=== PATIENT | male | born 1965 | race Caucasian/White ===

== ENCOUNTER 2020-03-02 00:59 | Outpatient (CLI) | payer BC, SELFPAY ==
[2020-03-02 18:01] LABS: SARS-CoV-2 RNA PCR Negative
== END 2020-03-02 01:00 | disposition home or self-care (01) ==
LOC: ANHCOVIDDT 00:59
PROVIDERS: PCP Internal Medicine; Visit Provider Internal Medicine Gastroenterology
DX: Z01.812 Encounter for preprocedural laboratory examination (principal); Z20.828 Contact with and (suspected) exposure to other viral communicable diseases
CPT/HCPCS: 87635; C9803; U0003

== ENCOUNTER 2020-03-04 00:49 | Day surgery (SDC) | payer BC, SELFPAY ==
[2020-02-26 13:39] VITALS: BMI 25.1
[2020-03-04 08:06] VITALS: BP 119/83; PULSE 105; RESP 16; TEMP 36.9; O2SAT 99
[2020-03-04] MEDS: LACTATED RINGERS 1,000 ML 150 ML IV CONT (08:18)
--- NOTE | 2020-03-04 08:44 | WPDANESEPPF ---
Anes - Initial Pre Proc Eval Procedure: Operation Date: 03/04/20 09:00 Proposed Procedures p Screening Colonoscopy - Randell Aldridge MD Date/Time: 03/04/20 08:44 Surgeon: Randell Aldridge MD Pre Op Diagnosis: neoplasm screening, family hx colon CA Patient Data Age: 54 Gender: M Height: 5 ft 7 in Weight: 74.8 kg Last Vital Signs Temp 36.9 C 03/04/20 08:06 Pulse 105 H 03/04/20 08:06 Resp 16 03/04/20 08:06 BP 119/83 03/04/20 08:06 Pulse Ox 99 03/04/20 08:06 Allergies Allergy/AdvReac Type Severity Reaction Status Date / Time Sulfa (Sulfonamide Allergy Mild Rash Verified 03/04/20 08:01 Antibiotics) Home Medications Medication Instructions Recorded Confirmed Type acetaminophen 500 mg PO Q6H PRN 02/25/20 03/04/20 History indomethacin 50 mg PO DAILY 02/25/20 03/04/20 History lisinopril 10 mg PO DAILY 02/25/20 03/04/20 History simvastatin 40 mg PO DAILY 02/25/20 03/04/20 History vitamins A,C,[id number] [ICaps 1 tablet PO ONCE 02/25/20 03/04/20 History AREDS] Patient hx anesthesia problems: none Family hx anesthesia problems: none PMFSH Past Medical History Medical History Anxiety Deaf Hyperlipidemia Hypertension Tobacco abuse Social History Social History Smoking packs per day: 1 Smoking cigarettes per day: 20.0 Years smoked: 35 Smoking pack-years: 35.00 Smoking status: Current every day smoker Tobacco type: cigarettes Alcohol intake: current Drinks per week: 1 Substance use: never Substance use type: does not use Living arrangements: with family Spiritual care concerns: No Anes - Eval Final PreProcedure Day of Procedure 03/04/20 08:44 Patient weight: normal Heart: regular rate and rhythm Lungs: decreased breath sounds Airway: Mallampati scale class II Neurological: other (alert) Last oral intake: >/= 8 hours ASA classification: III Emergent: no Anesthetic plan: proceed Anesthesia type and monitoring: general GIVS and standard monitoring Informed Consent: The patient's anesthetic plan and its attendant risks and benefits were discussed with the patient/family/POA. Questions were solicited and answers provided to the satisfaction of the patient/family/POA.
--- NOTE | 2020-03-04 08:54 | WPDGICN ---
Assessment and Plan Assessment and plan (1) Family history of colon cancer in father: Code(s): Z80.0 - Family history of malignant neoplasm of digestive organs Status: Acute Assessment and Plan: Patient's father had colon cancer several aunts and uncles have had cancer and polyps as well. Plan is for surveillance colonoscopy now and at 5 year intervals in the future. Further recommendations will be given after endoscopy. (2) Family history of colonic polyps: Code(s): Z83.71 - Family history of colonic polyps Status: Acute GI Consult Note Consult date/time: 03/04/20 08:54 HPI: James Ku is a 54 year old male Seen in evaluation at the request of Dr Quinteros. patient presents for screening colonoscopy. Patient is deaf in history is obtained with the assistance of his sister. Patient states that his current weight appetite bowel movements are normal. His family history is significant father had colon cancer as did several aunts and uncles. Patient's last colonoscopy was 5 years ago. Patient denies any blood in his stools his weight appetite bowel movements are normal. Review of Systems Review of Systems: All systems reviewed & are unremarkable except as noted in HPI and below PMFSH Past Medical History Medical History Anxiety Deaf Hyperlipidemia Hypertension Tobacco abuse Social History Social History Smoking packs per day: 1 Smoking cigarettes per day: 20.0 Years smoked: 35 Smoking pack-years: 35.00 Smoking status: Current every day smoker Tobacco type: cigarettes Alcohol intake: current Drinks per week: 1 Substance use: never Substance use type: does not use Living arrangements: with family Spiritual care concerns: No Meds Home Medications and Allergies Home Medications Medication Instructions Recorded Confirmed Type acetaminophen 500 mg PO Q6H PRN 02/25/20 03/04/20 History indomethacin 50 mg PO DAILY 02/25/20 03/04/20 History lisinopril 10 mg PO DAILY 02/25/20 03/04/20 History simvastatin 40 mg PO DAILY 02/25/20 03/04/20 History vitamins A,C,[id number] [ICaps 1 tablet PO ONCE 02/25/20 03/04/20 History AREDS] Allergies Allergy/AdvReac Type Severity Reaction Status Date / Time Sulfa (Sulfonamide Allergy Mild Rash Verified 03/04/20 08:01 Antibiotics) Vital Signs Vital Signs - 24 hr 03/04/20 08:06 Temperature 98.5 F Pulse Rate 105 H Respiratory Rate 16 Blood Pressure 119/83 Pulse Oximetry 99 Exam Narrative: Exam Narrative: Physical exam reveals patient to be alert. Vital signs stable. HE EENT exam is unremarkable. Lungs are clear to auscultation and percussion. Heart is without murmur or extra sounds. Abdominal exam bowel sounds are present soft nontender with no hepatosplenomegaly. Digital external rectal exam is normal.
[2020-03-04 09:22] VITALS: BP 99/63; PULSE 89; RESP 16; O2SAT 96
[2020-03-04 09:32] VITALS: BP 104/76; PULSE 85; RESP 16; O2SAT 96
[2020-03-04 09:42] VITALS: BP 114/74; PULSE 80; RESP 16; O2SAT 96
== END 2020-03-04 09:57 | disposition home or self-care (01) ==
PROVIDERS: PCP Internal Medicine; Visit Provider Internal Medicine Gastroenterology
PROC: 0DJD8ZZ Inspection of Lower Intestinal Tract, Via Natural or Artificial Opening Endoscopic (ICD-10-PCS; CPT 45378; principal; 2020-03-04 09:00)
DX: Z12.11 Encounter for screening for malignant neoplasm of colon (principal); Z83.71 Family history of colonic polyps; Z80.0 Family history of malignant neoplasm of digestive organs; H91.90 Unspecified hearing loss, unspecified ear; E78.5 Hyperlipidemia, unspecified; I10 Essential (primary) hypertension; F17.210 Nicotine dependence, cigarettes, uncomplicated; K64.8 Other hemorrhoids; K57.30 Diverticulosis of large intestine without perforation or abscess without bleeding
CPT/HCPCS: 45378; J2704; J7120

== ENCOUNTER 2020-03-15 17:14 | Emergency (ER) | payer BC, SELFPAY ==
[2020-03-15 17:19] VITALS: BP 143/89; PULSE 114; RESP 18; TEMP 37; O2SAT 95
[2020-03-15 17:32] LABS: Basophils Absolute Auto 0.1 K/mm3 (0.0-0.1); Basophils Percent Auto 0.3 % (0.2-1.2); Eosinophils Absolute Auto 0.2 K/mm3 (0-0.3); Eosinophils Percent Auto 1.2 % (0-4.4); Hematocrit 43.6 % (42.0-52.0); Hemoglobin 14.4 g/dL (14.0-18.0); Immature Granulocyte Absolute 0.07 K/mm3 (0.00-0.031); Immature Granulocyte Percent A 0.5 % (0-0.5); Lymphocytes Absolute Auto 2.02 K/mm3 (0.9-3.2); Lymphocytes Percent Auto 14.1 % (18.3-44.2); Mean Corpuscular Hemoglobin 28.6 pg (26-34); Mean Corpuscular Volume 86.5 fl (80-100); Mean Platelet Volume 9.3 fl (7.4-10.4); Monocytes Absolute Auto 1.3 K/mm3 (0.1-0.6); Monocytes Percent Auto 8.7 % (2.6-8.5); Neutrophils Absolute Auto 10.8 K/mm3 (1.3-6.7); Neutrophils Percent Auto 75.2 % (45.5-73.1); Platelet Count Result 342 k/mm3 (150-375); Red Blood Count 5.04 M/mm3 (4.6-6.20); Red Cell Distribution Width 13.8 % (11.5-14.5); White Blood Count 14.4 K/mm3 (4.5-10.0)
[2020-03-15 17:42] LABS: INR 2.3; Prothrombin Time 25.1 Seconds (11.1-14.7)
--- NOTE | 2020-03-15 17:50 | ED.LOWEXIN ---
HPI - Extremity Injury (Lower) General Chief Complaint: Extremity Injury, Lower Stated Complaint: possible DVT Time Seen by Provider: 03/15/20 17:29 Source: patient Mode of arrival: ambulatory Limitations: language barrier (Patient is deaf, his sister is interpreting for him) History of Present Illness HPI Narrative: This is a 54-year-old male that presents the emergency department for left lower extremity swelling x3 days. Also reports mild redness to the area. Reports history of DVT. Reports recent travel. Denies fever, chest pain, or shortness of breath. Related Data Home Medications Medication Instructions Recorded Confirmed acetaminophen 500 mg PO Q6H PRN 02/25/20 03/04/20 indomethacin 50 mg PO DAILY 02/25/20 03/04/20 lisinopril 10 mg PO DAILY 02/25/20 03/04/20 simvastatin 40 mg PO DAILY 02/25/20 03/04/20 vitamins A,C,[id number] [ICaps 1 tablet PO ONCE 02/25/20 03/04/20 AREDS] Allergies Allergy/AdvReac Type Severity Reaction Status Date / Time Sulfa (Sulfonamide Allergy Mild Rash Verified 03/04/20 08:01 Antibiotics) Review of Systems Review of Systems: Narrative: CONSTITUTIONAL: Denies fever CARDIOVASCULAR: Reports edema. Denies chest pain RESPIRATORY: Denies dyspnea. All systems reviewed & are unremarkable except as noted in HPI and below PMFSH Past Medical History Medical History (Updated 03/15/20 @ 18:55 by Ruth Jacobsen PA-C) Anxiety Deaf Hyperlipidemia Hypertension Tobacco abuse Social History Social History Smoking packs per day: 1 Smoking cigarettes per day: 20.0 Years smoked: 35 Smoking pack-years: 35.00 Smoking status: Current every day smoker Tobacco type: cigarettes Alcohol intake: current Drinks per week: 1 Substance use: never Substance use type: does not use Spiritual care concerns: No Exam Narrative: Exam Narrative: GENERAL: Well-appearing, well-nourished, and in no acute distress. HEAD: Normocephalic, atraumatic. EYES: EOMI. CHEST: Clear to auscultation. No respiratory distress. No wheezes rales or rhonchi HEART: Regular rate and rhythm. No murmur heard. Normal peripheral pulses. EXTREMITIES: Normal range of motion. Mild edema and redness to the left lower extremity. Normal DP pulses. Normal sensation SKIN: Warm, dry, no rash. NEURO: No focal deficits. Alert and oriented x3. PSYCH: Normal mood and affect Course Consultations Consultation #1: I spoke with patient's primary, Dr. Quinteros to ensure follow-up. Date: 03/15/20 Time: 18:52 Vital Signs Vital signs: Vital Signs Temperature 98.6 F 03/15/20 17:19 Pulse Rate 114 H 03/15/20 17:19 Respiratory Rate 18 03/15/20 17:19 Blood Pressure 143/89 H 03/15/20 17:19 Pulse Oximetry 95 03/15/20 17:19 Temperature 98.6 F 03/15/20 17:19 Pulse Rate 101 H 03/15/20 18:46 Respiratory Rate 20 03/15/20 18:46 Blood Pressure 135/91 H 03/15/20 18:46 Pulse Oximetry 96 03/15/20 18:46 MDM - Extremity Injury (Lower) MDM Narrative Medical decision making narrative: Patient presents to the emergency department for left lower extremity pain and swelling x3 days. He is afebrile and nontoxic-appearing. Exam and history are consistent with DVT. Mildly tachycardic upon arrival, this improved without intervention. Patient's heart rate is now normal. Oxygen saturation has remained normal on room air. He denies any chest pain or shortness of breath. CBC with leukocytosis to 14.4. Metabolic panel with elevation in alk phos and ALT. Looking back at previous labs this seems to be chronic for him. Patient was here past the time we had our ultrasound technicians today. Patient was given a dose of Lovenox in the ED and is set up for an ultrasound tomorrow morning. I spoke with patient's primary, Dr. Quinteros to ensure follow-up. Patient is stable and felt appropriate further outpatient evaluation. He was given warnings to re
[2020-03-15 17:52] LABS: Alanine Aminotransferase 96 U/L (4-50); Albumin Level 3.7 g/dL (3.5-5.1); Alkaline Phosphatase 250 U/L (38-126); Anion Gap 10 mmol/L (8-16); Aspartate Amino Transferase 42 U/L (17-59); Bilirubin,Total 0.8 mg/dL (0.2-1.3); Blood Urea Nitrogen 12 mg/dL (9-20); Calcium 8.8 mg/dL (8.4-10.2); Carbon Dioxide 25 mmol/L (22-30); Chloride 101 mmol/L (98-107); Estimated CRCL calculation 76 ml/min; Estimated Glomerular Filt Rate > 60; Glucose 168 mg/dL (75-110); Sodium 136 mmol/L (137-145)
[2020-03-15 18:46] VITALS: BP 135/91; PULSE 101; RESP 20; O2SAT 96
[2020-03-15] MEDS: ENOXAPARIN 80 MG/0.8 ML SYRINGE 75 MG SUB-Q (18:46)
== END 2020-03-15 18:57 | disposition home or self-care (01) ==
PROVIDERS: Emergency Provider Family Medicine; PCP Internal Medicine
DX: M79.89 Other specified soft tissue disorders (principal); Z86.718 Personal history of other venous thrombosis and embolism; E78.5 Hyperlipidemia, unspecified; I10 Essential (primary) hypertension; F17.210 Nicotine dependence, cigarettes, uncomplicated; H91.90 Unspecified hearing loss, unspecified ear
CPT/HCPCS: 36415; 80053; 85025; 85610; 85730; 96372; 99283; J1650

== ENCOUNTER 2020-03-16 08:02 | Outpatient (CLI) | payer BC, SELFPAY ==
--- NOTE | ~2020-03-16 | US_ITS ---
EXAMINATION: US venous doppler [facility] DATE: 03/16/2020 08:54 INDICATION: Left lower limb pain and swelling TECHNIQUE: [place] scale images without and with compression and Doppler images of the left lower extrem ity veins were obtained. COMPARISON: 09/22/2018 FINDINGS: The left common femoral vein, profunda femoral vein, femoral vein, popliteal vein, peroneal trunk, posterior tibial veins, and greater saphenous vein are patent. There is an approximately 6 x 2.6 x 2 cm fluid collection situated in the medial aspect of proximal calf. IMPRESSION: 1. Patent left lower extremity veins. No evidence of deep venous thrombosis. 2. Possible seroma or hematoma of the medial calf. Recommend continued clinical follow-up with repeat ultrasound if necessary. Reviewed, dictated and finalized at location A.
== END 2020-03-16 08:03 | disposition home or self-care (01) ==
LOC: ANHIMG 08:04
PROVIDERS: PCP Internal Medicine; Visit Provider Internal Medicine
DX: M79.89 Other specified soft tissue disorders (principal)
CPT/HCPCS: 93971

== ENCOUNTER 2022-02-06 10:53 | Inpatient (IN) | payer MEDICARE, BC, SELFPAY ==
--- NOTE | ~2022-02-06 | XR_ITS ---
EXAMINATION: XR abdomen/kub 1V DATE: 02/11/2022 13:13 INDICATION: Abdominal pain TECHNIQUE: A supine view of the abdomen on 2 radiographs was obtained. COMPARISON: CT dated 02/07/2022 FINDINGS: Small amount of gas and stool scattered throughout the colon. No dilated gas-filled loops of bowel to suggest obstruction. Phleboliths in the pelvis. No evident urolithiasis. Mild lumbar and lower thora cic spondylosis. IMPRESSION: 1. Normal bowel gas pattern. Reviewed, dictated and finalized at location A.
--- NOTE | ~2022-02-06 | CT_ITS ---
EXAMINATION: CT abdomen pelvis wo con DATE: 02/07/2022 13:55 INDICATION: Colitis. Left thigh abscess. TECHNIQUE: Computed tomography (CT) of the abdomen and pelvis was performed without intravenous contr ast. Automated exposure control and iterative reconstruction technique were employed. The dose-length product was 487.16 mGy-cm. COMPARISON: CT abdomen and pelvis 01/26/2017 FINDINGS: The visualized portions of the lung bases demonstrate mild atelectasis. No pleural effusion . The heart size is normal. No pericardial effusion. The liver, gallbladder, spleen, pancreas, and ad renal glands are normal. There is cortical thinning of the kidneys. There is a 3.1 cm fusiform infrar enal aortic aneurysm. The prostate is mildly enlarged. There is diverticulosis of the colon without e vidence of diverticulitis. There are no dilated loops of bowel. The appendix is normal. There is a le ft inguinal hernia containing fat. There are no pathologically enlarged lymph nodes. There is no free intraperitoneal fluid. There is mild lumbar spondylosis. IMPRESSION: 1. No specific evidence of colitis. 2. 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 Reviewed, dictated and finalized at location A.
--- NOTE | ~2022-02-06 | US_ITS ---
EXAMINATION: US percutaneous drain w cath DATE: 02/08/2022 14:01 INDICATION: Left thigh intramuscular abscess TECHNIQUE: The procedure including the risks and benefits was discussed with the patient and patient' s . Risks discussed included bleeding, infection and allergic reaction. Oral and written consent were obtained. The patient was confirmed to be receiving appropriate antibiotic coverage. The skin o verlying the anterolateral left thigh was prepped and draped in usual sterile fashion. Anesthetic wa s administered with 1% lidocaine subcutaneously. An 8.5 Fr catheter was inserted into the abscess cav ity by trocar technique utilizing continuous ultrasound guidance. The metal stiffener and trocar need le were removed, and the pigtail tip was locked. Fluid was aspirated and sent for stain and culture. The catheter was stitched to the skin with suture. Antibiotic ointment and a sterile dressing were ap plied. The catheter was then attached to gravity drainage. There were no immediate complications. FINDINGS: 2.0 x 1.0 cm anechoic intramuscular fluid collection at the anterolateral left thigh likely within the vastus lateralis. Subsequent images demonstrate the catheter position with formed loop wi thin the abscess cavity. Final images demonstrate decompression of the abscess cavity surrounding the drainage catheter. 2 mL of opaque reddish fluid was aspirated and sent to the lab for Gram stain and cultures. IMPRESSION: 1. Successful ultrasound-guided anterior left thigh abscess drainage catheter placement with drainage of the 2 x 1 cm abscess yielding 2 mL of fluid which was sent for Gram stain and cultures. Reviewed, dictated and finalized at location A. IMPRESSION: 1. Successful ultrasound-guided anterior left thigh abscess drainage catheter p lacement with drainage of the 2 x 1 cm abscess yielding 2 mL of fluid which was sent for Gram stain and cultures.
--- NOTE | ~2022-02-06 | US_ITS ---
EXAMINATION: US renal BI DATE: 02/10/2022 10:05 INDICATION: Acute renal failure TECHNIQUE: Multiple grayscale and Doppler ultrasound images of the kidneys were obtained. COMPARISON: None. FINDINGS: The right kidney measures 10.3 x 5.9 x 6.5 cm. The left kidney measures 9.7 x 5.6 x 6.3 cm. The kidneys demonstrate normal parenchymal echogenicity. There is no hydronephrosis. The bladder is normal. IMPRESSION: 1. Normal kidneys without hydronephrosis. Reviewed, dictated and finalized at location B.
--- NOTE | ~2022-02-06 | CT_ITS ---
CT OF RIGHT HAND EXAMINATION: CT femur LT w con DATE: 02/06/2022 14:44 INDICATION: TECHNIQUE: Computed tomography (CT) of the hip was performed without intravenous contrast. Automated exposure control and iterative reconstruction technique were employed. The dose-length product was 47 5.51 mGy-cm. COMPARISON: None FINDINGS: Limitations: None Bones: Normal mineralization. No acute fracture or dislocation. Posttraumatic/postsurgical change in the proximal tibia likely secondary to remote tibial plateau fracture. Degenerative change in the lef t knee. Soft Tissues:Diverticulosis. Moderate length segment of soft tissue density distal sigmoid wall thick ening, which can be seen in infectious, inflammatory, or ischemic etiologies. Rectal wall submucosal fat as can be seen with chronic IBD, obesity, chemotherapy treatment, and celiac disease. Fat-contain ing left inguinal hernia. Fluid: 1.6 x 2.2 x 2.9 cm low-density collection surrounding irregular rim enhancement within the bel ly of the vastus intermedius muscle at the level of the mid left femur. IMPRESSION: 2.9 cm intramuscular abscess in the mid left vastus intermedius muscle. Acute distal sigmoid colitis overlying likely chronic changes of IBD. Reviewed, dictated and finalized at location K. IMPRESSION: 2.9 cm intramuscular abscess in the mid left vastus intermedius muscle. Acute d istal sigmoid colitis overlying likely chronic changes of IBD.
--- NOTE | ~2022-02-06 | US_ITS ---
EXAMINATION: US venous doppler [facility] DATE: 02/06/2022 12:16 INDICATION: Left lower limb pain and swelling. TECHNIQUE: Grayscale ultrasound images without and with compression and Doppler ultrasound images of the left lower extremity veins were obtained. COMPARISON: Ultrasound 03/16/2020 FINDINGS: The visualized portions of left common femoral vein, profunda (deep) femoral vein, femoral vein, popl iteal vein, peroneal veins, posterior tibial veins, and greater saphenous vein outflow are patent. IMPRESSION: 1. No deep venous thrombosis. Reviewed, dictated and finalized at location A.
[2022-02-06 11:11] VITALS: BP 142/97; PULSE 107; RESP 16; TEMP 36.7; O2SAT 100
--- NOTE | 2022-02-06 12:14 | ED.EXTPRO ---
HPI - Extremity Problem General Chief complaint: Extremity Problem,Nontraumatic <KRYSTLE Boyle Last Filed: 02/06/22 18:47> Stated complaint: Left leg surgery, staph infection, DVT. Left leg knot, hx of DVT <KRYSTLE Boyle Last Filed: 02/06/22 18:47> Time Seen by Provider: 02/06/22 11:17 <KRYSTLE Boyle Last Filed: 02/06/22 18:47> Source: patient and family <KRYSTLE Boyle Last Filed: 02/06/22 18:47> Mode of arrival: ambulatory <KRYSTLE Boyle Last Filed: 02/06/22 18:47> Limitations: language barrier <KRYSTLE Boyle Last Filed: 02/06/22 18:47> History of Present Illness HPI Narrative: Patient is a 56-year-old male who presents the ED with report of left thigh pain and swelling. Patient is deaf. Family member at bedside assisted in providing information. [employer] peanut grader was offered however sister was comfortable interpreting. Over the past 2 days, patient has developed an area of firmness, pain, swelling to left anterior thigh. Decreased flexion range of motion of left knee due to pain. 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 He currently takes aspirin 81 mg daily, no other blood thinners. Denies any recent injury. Denies chest pain or shortness of breath. Denies fevers. <KRYSTLE Boyle Last Filed: 02/06/22 18:47> Related Data Home medications: Home Medications Medication Instructions Recorded Confirmed acetaminophen 500 mg tablet 500 mg PO Q6H PRN Headache 02/25/20 03/04/20 indomethacin 50 mg capsule 50 mg PO DAILY 02/25/20 03/04/20 lisinopril 10 mg tablet 10 mg PO DAILY 02/25/20 03/04/20 simvastatin 40 mg tablet 40 mg PO DAILY 02/25/20 03/04/20 vit A 7,160 unit-C 113 mg-E 100 1 tablet PO ONCE 02/25/20 03/04/20 [id number] tablet,delayed rel. (ICaps AREDS) <Virgen Patrick PA-C - Last Filed: 02/06/22 18:47> Allergies/Adverse reactions: Allergies Allergy/AdvReac Type Severity Reaction Status Date / Time Sulfa (Sulfonamide Allergy Mild Rash Verified 03/04/20 08:01 Antibiotics) <Virgen Patrick PA-C - Last Filed: 02/06/22 18:47> Review of Systems Review of Systems: CONSTITUTIONAL: Denies fever. CARDIOVASCULAR: Denies chest pain. RESPIRATORY: Denies dyspnea. GASTROINTESTINAL: Denies abdominal pain, nausea, vomiting. SKIN: Reports area of firmness, swelling to left anterior thigh. MUSCULOSKELETAL: Reports pain to left anterior thigh. <Virgen Patrick PA-C - Last Filed: 02/06/22 18:47> All systems reviewed & are unremarkable except as noted in HPI and below <Virgen Patrick PA-C - Last Filed: 02/06/22 18:47> [facility] Past Medical History Medical History: Medical History (Updated 02/06/22 @ 15:26 by Virgen Patrick PA-C) Anxiety Deaf History of deep venous thrombosis (DVT) of distal vein of left lower extremity Hyperlipidemia Hypertension Tobacco abuse <Virgen Patrick PA-C - Last Filed: 02/06/22 18:47> Surgical History Surgical History: Surgical History (Updated 02/06/22 @ 18:28 by Virgen Patrick PA-C) History of orthopedic surgery tibial plateau fx 2017 with subsequent removal of hardware <Virgen Patrick PA-C - Last Filed: 02/06/22 18:47> Social History Social History: Social History Smoking packs per day: 1 Smoking cigarettes per day: 20.0 Years smoked: 35 Smoking pack-years: 35.00 Smoking status: Current every day smoker Tobacco type: cigarettes Alcohol intake: current Drinks per week: 1 Substance use: never Substance use type: does not use Spiritual care concerns: No <Virgen Patrick PA-C - Last Filed:
[2022-02-06 12:29] LABS: Basophils Absolute Auto 0.1 K/mm3 (0.0-0.1); Basophils Percent Auto 0.4 % (0.2-1.2); Eosinophils Absolute Auto 0.1 K/mm3 (0-0.3); Hematocrit 48.6 % (42.0-52.0); Hemoglobin 15.7 g/dL (14.0-18.0); Immature Granulocyte Absolute 0.05 K/mm3 (0.00-0.031); Immature Granulocyte Percent A 0.4 % (0-0.5); Lymphocytes Absolute Auto 2.25 K/mm3 (0.9-3.2); Lymphocytes Percent Auto 19.9 % (18.3-44.2); Mean Corpuscular HGB Conc 32.3 g/dl (32-36); Mean Corpuscular Hemoglobin 28.8 pg (26-34); Mean Corpuscular Volume 89.2 fl (80-100); Mean Platelet Volume 9.2 fl (7.4-10.4); Monocytes Absolute Auto 1.2 K/mm3 (0.1-0.6); Monocytes Percent Auto 10.3 % (2.6-8.5); Neutrophils Absolute Auto 7.7 K/mm3 (1.3-6.7); Platelet Count Result 284 k/mm3 (150-375); Red Blood Count 5.45 M/mm3 (4.6-6.20); Red Cell Distribution Width 13.4 % (11.5-14.5); White Blood Count 11.3 K/mm3 (4.5-10.0)
[2022-02-06 12:42] LABS: Alanine Aminotransferase 22 U/L (6-50); Albumin Level 4.1 g/dL (3.5-5.1); Alkaline Phosphatase 103 U/L (38-126); Anion Gap 7 mmol/L (8-16); Aspartate Amino Transferase 22 U/L (17-59); Bilirubin,Total 0.4 mg/dL (0.2-1.3); Blood Urea Nitrogen 9 mg/dL (9-20); Calcium 9.1 mg/dL (8.4-10.2); Carbon Dioxide 30 mmol/L (22-30); Chloride 102 mmol/L (98-107); Estimated CRCL calculation 74 ml/min; Estimated Glomerular Filt Rate > 60; Glucose 111 mg/dL (65-110); Potassium 4.1 mmol/L (3.4-5.0); Sodium 139 mmol/L (137-145)
[2022-02-06 12:44] LABS: Prothrombin Time 13.2 Seconds (11.1-14.7)
[2022-02-06 12:45] LABS: Partial Thromboplastin Time 30.7 SECONDS (22.3-36.8)
[2022-02-06 16:11] VITALS: BP 138/72; PULSE 88; RESP 20; O2SAT 99
[2022-02-06 16:27] LABS: Lactic Acid Reflex 1.1 mmol/L (0.7-2.0)
--- NOTE | 2022-02-06 18:25 | PM.IMHP ---
H&P: HPI History of Present Illness Date/Time: 02/06/22 18:25 Chief Complaint: Left upper leg pain. 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 He communicates using ASL and his sister at bedside helped translate the following at the request of patient. He fractured his left leg in 2007 and it sounds as though he had recurrent infections at the side of external fixator insertion and of the hardware which was eventually removed in 2017. It is my understanding that he has had MRSA several infections either in the joint or in the musculature since that time. Last Monday he felt a knot under the skin of the left upper thigh and about 3 days ago the area increased in size and became painful. He has only mild discomfort in the left thigh with rest however he has quite a bit of pain with bearing weight though he has difficulties describing the pain. He has been taking acetaminophen at home with some help. He has also had some chills though no sweats or fever. Appetite is been okay knee denies nausea and vomiting. No paresthesias or numbness of the lower extremity. Review of Systems Review of Systems: Twelve systems were reviewed. No fever, chills, or sweats. No recent cold or flu symptoms. He denies chest pain shortness breast. No abdominal pain. No diarrhea or constipation. Except as documented, all other systems were reviewed and are negative. 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 History of repair of congenital anomaly of heart Family History Family History (Updated 02/06/22 @ 20:37 by Pia Diaz PA-C) Other Family history non-contributory Social History Social History (Updated 02/06/22 @ 20:37 by Pia Diaz PA-C) Social History: Surrogate medical decision maker: Tania Sousa, sister. Code status: Full code. Smoking packs per day: 1 Smoking cigarettes per day: 20.0 Years smoked: 35 Smoking pack-years: 35.00 Smoking status: Current every day smoker Tobacco type: cigarettes Alcohol intake: current Drinks per week: 1 Substance use: current Substance use type: marijuana Last use: 02/05/22 Additional living arrangements comments: The patient lives with his brother in [place]. Additional occupation/education comments: On disability. Spiritual care concerns: No Meds Home Medications and Allergies Home Medications Medication Instructions Recorded Confirmed Type acetaminophen 500 mg tablet 500 mg PO Q6H PRN Headache 02/25/20 03/04/20 History indomethacin 50 mg capsule 50 mg PO DAILY 02/25/20 03/04/20 History lisinopril 10 mg tablet 10 mg PO DAILY 02/25/20 03/04/20 History simvastatin 40 mg tablet 40 mg PO DAILY 02/25/20 03/04/20 History vit A 7,160 unit-C 113 mg-E 100 1 tablet PO ONCE 02/25/20 03/04/20 History [id number] tablet,delayed rel. (ICaps AREDS) Allergies Allergy/AdvReac Type Severity Reaction Status Date / Time Sulfa (Sulfonamide Allergy Mild Rash Verified 02/06/22 20:42 Antibiotics) Vital Signs Vital Signs - 24 hr 02/06/22 11:11 02/06/22 16:11 Temperature 98.1 F Pulse Rate 107 H 88 Respiratory Rate 16 20 Blood Pressure 142/97 H 138/72 Pulse Oximetry 100 99 Oxygen Delivery Room Air Exam N
[2022-02-06] MEDS: SODIUM CHLORIDE 0.9% IV 250 ML 100 ML (18:28)
[2022-02-06 18:51] VITALS: BP 132/68; PULSE 78; RESP 18; O2SAT 99
--- NOTE | 2022-02-06 19:00 | ADMGEN ---
This patient, James Ku, was admitted to 2 Medical Room 242-01. Patient/family oriented to hospital policies and general routines including ID bracelet, bed and alarms, visiting hours, pain management, procedures, bathroom and other care routines, personal items, smoking policy, room service/diet, and visiting hours. Information on how to activate the Rapid Response Team has been discussed. Patient/Family are encouraged to report perceived risks to care and to ask questions if they do not understand what they are told or what they should do.
[2022-02-06 19:15] VITALS: BP 129/78; PULSE 86; RESP 20; TEMP 36.8; O2SAT 98; BMI 27.5
[2022-02-06] MEDS: NICOTINE (*PBKC) 14 MG PATCH 1 PATCH TRANSDERM (21:52)
[2022-02-06] MEDS: ACETAMINOPHEN 500 MG TABLET PO (23:46)
[2022-02-07 03:36] VITALS: BP 127/85; PULSE 71; RESP 17; TEMP 36.4; O2SAT 96
[2022-02-07 05:06] LABS: Basophils Percent Auto 0.4 % (0.2-1.2); Eosinophils Absolute Auto 0.2 K/mm3 (0-0.3); Eosinophils Percent Auto 2.2 % (0-4.4); Hematocrit 44.5 % (42.0-52.0); Hemoglobin 14.9 g/dL (14.0-18.0); Immature Granulocyte Absolute 0.03 K/mm3 (0.00-0.031); Immature Granulocyte Percent A 0.3 % (0-0.5); Lymphocytes Absolute Auto 3.07 K/mm3 (0.9-3.2); Lymphocytes Percent Auto 28.7 % (18.3-44.2); Mean Corpuscular HGB Conc 33.5 g/dl (32-36); Mean Corpuscular Hemoglobin 29.2 pg (26-34); Mean Corpuscular Volume 87.3 fl (80-100); Mean Platelet Volume 9.3 fl (7.4-10.4); Monocytes Absolute Auto 1.1 K/mm3 (0.1-0.6); Monocytes Percent Auto 10.1 % (2.6-8.5); Neutrophils Absolute Auto 6.2 K/mm3 (1.3-6.7); Neutrophils Percent Auto 58.3 % (45.5-73.1); Platelet Count Result 293 k/mm3 (150-375); Red Cell Distribution Width 13.2 % (11.5-14.5); White Blood Count 10.7 K/mm3 (4.5-10.0)
[2022-02-07 05:20] LABS: Anion Gap 6 mmol/L (8-16); Blood Urea Nitrogen 10 mg/dL (9-20); Calcium 8.9 mg/dL (8.4-10.2); Carbon Dioxide 27 mmol/L (22-30); Chloride 103 mmol/L (98-107); Estimated CRCL calculation 74 ml/min; Estimated Glomerular Filt Rate > 60; Glucose 104 mg/dL (65-110); Potassium 3.9 mmol/L (3.4-5.0); Sodium 136 mmol/L (137-145)
[2022-02-07] MEDS: ACETAMINOPHEN 500 MG TABLET PO (05:32)
--- NOTE | 2022-02-07 07:41 | PM.CNOR ---
Assessment and Plan Assessment and plan (1) Abscess of muscle of thigh: Code(s): M60.059 - Infective myositis, unspecified thigh Status: Acute Plan 56-year-old male with what appears to be a thigh abscess. In looking at the CT scan, this is directly in line with the tract of the prior Shantz pin placed at that level. There does not appear to be any type of a bony night S in that area. It does not appear to communicate with the surface of the femur either. Biopsy/aspirate planned for today. Currently on empiric antibiotics. I did talk to the patient with his sister's assistance about the possibility of surgical debridement. I will also ask General surgery to have a look at him because of the CT reading regarding the sigmoid colon however his belly exam today is benign so I do not think that that is likely the source. Thank you for the consultation. History of Present Illness HPI Consult date: 02/07/22 Chief complaint: L Thigh Intramuscular Abscess Narrative: This document created with [id number] technology and is subject to senior regulatory affairs specialist irregularities. 56-year-old male who is admitted with a left thigh abscess. His history is significant for having had a severe tibia fracture many years ago. This was initially treated with a spanning external fixator before definitive fixation of the proximal tibia was carried out. He ended up with infected tibial hardware which was removed in 2016. In 2019 he developed some thigh swelling which was treated with oral antibiotics and then the pain went away. Most recently he developed pain and swelling in his left thigh anterolaterally. It is around the area where he had had a previous external fixator pin. Denies any other extremity pain. Neck or back pain. No cough. No fever. No bowel or bladder changes. No recent lower abdominal pain. Did have some upper GI irritability a couple of weeks ago that was treated successfully with omeprazole. Patient is deaf. He was interviewed and examined with the assistance of his sister who uses ASL. Does smoke cigarettes and marijuana. Does not use drugs. Review of Systems Constitutional: Constitutional: Reports no additional constitutional complaints, Denies excessive sweating and Denies fatigue Eyes: Eyes: Reports no additional eye complaints ENT: Reports system reviewed and no additional complaints, except as documented Cardiovascular: Cardiovascular: Denies chest pain at rest and Denies dyspnea Respiratory: Respiratory: Reports no additional respiratory complaints and Denies dyspnea Gastrointestinal: Gastrointestinal: Reports no additional gastrointestinal complaints Musculoskeletal: Musculoskeletal: Reports as per HPI Integumentary/Breasts: Skin/Breast: Reports system reviewed and no additional complaints, except as docu Neurologic: Reports as per HPI Endocrine: Endocrine: Denies excessive sweating and Denies fatigue Hematologic/Lymphatic: Hematologic/Lymphatic: Denies easy bleeding and Denies easy bruising PMFSH Past Medical History Medical History Anxiety 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 History of repair of congenital anomaly of heart Family History Family History Other Family history non-contributory Social History Social History Social History: Surrogate medical decision maker: Tania Sousa, sister. Code status: Full code. Smoking packs per day: 1 Smoking cigarettes per day: 20.0 Years smoked:
[2022-02-07] MEDS: LORATADINE 10 MG TABLET PO (09:06)
[2022-02-07] MEDS: lisinopriL 10 MG TABLET PO (09:07)
[2022-02-07] MEDS: IBUPROFEN 600 MG TABLET PO (10:57)
--- NOTE | 2022-02-07 11:40 | PM.CNGS ---
Assessment and Plan Assessment and plan (1) Abscess of muscle of thigh: Code(s): M60.059 - Infective myositis, unspecified thigh Status: Acute Assessment and Plan: cont IV abx, mgmt per ortho (2) Colitis: Code(s): K52.9 - Noninfective gastroenteritis and colitis, unspecified Status: Acute Assessment and Plan: exam benign, will get CT for further eval History of Present Illness Consult details Consult date: 02/07/22 Reason for consult: other (colitis) Requesting physician: Demetri Tolentino MD Narrative: The patient is a 56-year-old male presenting with a left anterior thigh intramuscular abscess. Of note, the patient previously had a fracture in that area requiring orthopedic procedure. Per chart, the patient had staph infection requiring removal of hardware in the same area. Dr. Tolentino is seeing the patient for that issue. A CT scan of the area showed the intramuscular abscess, but incidentally also showed possible sigmoid colitis. The patient denies any abdominal pain at this time and is tolerating a diet. The patient is deaf so communication is somewhat difficult, but patient does deny any abdominal pain or changes in bowel habits. 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 History of repair of congenital anomaly of heart Family History Family History Other Family history non-contributory Social History Social History Social History: Surrogate medical decision maker: Tania Sousa, sister. Code status: Full code. Smoking packs per day: 1 Smoking cigarettes per day: 20.0 Years smoked: 35 Smoking pack-years: 35.00 Smoking status: Current every day smoker Tobacco type: cigarettes Alcohol intake: current Drinks per week: 1 Substance use: current Substance use type: marijuana Last use: 02/05/22 Additional living arrangements comments: The patient lives with his brother in [place]. Additional occupation/education comments: On disability. Spiritual care concerns: No Meds Home Medications and Allergies Home Medications Medication Instructions Recorded Confirmed Type acetaminophen 500 mg tablet 500 mg PO Q6H PRN Headache 02/25/20 02/06/22 History lisinopril 10 mg tablet 10 mg PO DAILY 02/25/20 02/06/22 History simvastatin 40 mg tablet 40 mg PO HS 02/25/20 02/06/22 History aspirin 81 mg tablet 81 mg PO DAILY 02/06/22 02/06/22 History cetirizine 10 mg capsule (Zyrtec) 10 mg PO DAILY 02/06/22 02/06/22 History vitamin A-vitamin C-vit E-min 1 tablet PO DAILY 02/06/22 02/06/22 History tablet Allergies Allergy/AdvReac Type Severity Reaction Status Date / Time Sulfa (Sulfonamide Allergy Mild Rash Verified 02/06/22 20:42 Antibiotics) Vital Signs Vital Signs - 24 hr 02/06/22 16:11 02/06/22 18:51 02/06/22 19:15 Temperature 36.8 C Pulse Rate 88 78 86 Respiratory Rate 20 18 20 Blood Pressure 138/72 132/68 129/78 Pulse Oximetry 99 99 98 Oxygen Delivery 02/06/22 19:30 02/07/22 03:36 Temperature 36.4 C L Pulse Rate 71 Respiratory Rate 17 Blood Pressure 127/85 Pulse Oximetry 96 Oxygen Delivery Room Air Exam Const: General: cooperative, comfortable and no acute distress HENMT: Head: normal to inspection, normocephalic and atraumatic Eyes: General: appearance normal, both eyes and all rela
--- NOTE | 2022-02-07 13:43 | PM.IMPN ---
Progress Note: A&P Assessment and Plan (1) Abscess of muscle of thigh: Code(s): M60.059 - Infective myositis, unspecified thigh Status: Acute Assessment and Plan: The patient has a history of MRSA infection in the same leg despite having the hardware removed. started on empiric vancomycin and zosyn for broad-spectrum coverage 02/06/22, Adjust antibiotics per cultures. blood cultures pending will obtain wound cultures after IR drain inserted. IR consulted for drain insertion tomorrow. Dr. Tolentino , orthopedics, consulted and appreciate recommendation- does not appear to have bony involvement. (2) Colitis: Code(s): K52.9 - Noninfective gastroenteritis and colitis, unspecified Status: Acute Assessment and Plan: Incidental finding of acute sigmoid diverticulitis overlying chronic changes of possible IBD on admission CT. Patient denies history of inflammatory bowel disease and no complaints of abdominal pain at this time. last colonoscopy 03/04/[address] Aldridge with internal hemorrhoids and diverticulosis without perforation or abscess noted. General surgery has been consulted and appreciate recommendations. Monitor diet tolerance he will need repeat colonoscopy, which can likely be done outpatient as he is asymptomatic (3) Hyperlipidemia: Qualifiers: Hyperlipidemia type: unspecified Qualified Code(s): E78.5 - Hyperlipidemia, unspecified Code(s): E78.5 - Hyperlipidemia, unspecified Status: Chronic Assessment and Plan: Continue statin, LFTs within normal limits. (4) Hypertension: Code(s): I10 - Essential (primary) hypertension Status: Acute Assessment and Plan: Blood pressures were reviewed and they are stable. Continue antihypertensives and monitor. (5) Tobacco abuse: Code(s): Z72.0 - Tobacco use Status: Chronic Assessment and Plan: Smoking cessation is encouraged. He declines the need for a nicotine patch but asks permission to use nicotine gum. Plan code status: full code Disposition: Return home when medically stable Time Spent With Patient Time with patient: 15 - 25 minutes Subjective Date/time seen: 02/07/22 13:43 Interval history: Pleasant 56-year-old male smoker with congenital rubella syndrome with resultant deafness and heart defect (?hole in heart repaired as an ), hypertension, hyperlipidemia, lichen planus, depression, and anxiety who presented to the emergency department from home for evaluation of left upper leg pain. Patient is lying in bed with sister at bedside who is translating with ASL. She reports patient is complaining of headache and is hungry. He thinks the headache is related to lack of caffeine is usually drinks soda every morning, her sister. No fever, chills, rigors, shortness of breath, chest pain, paresthesia. He has pain to his left upper leg with palpation. No abdominal pain, nausea, vomiting, diarrhea, constipation. The patient reportedly did have some pain approximately 1 week ago however he took medications for GERD and his symptoms resolved. He had a colonoscopy approximately 1 year ago without abnormality. Review of Systems Review of Systems: All systems reviewed & are unremarkable except as noted in HPI and below Exam Narrative: General: Well-developed, nontoxic-appearing male. HEENT: Normocephalic. Atraumatic. PERRL, EOMI. Sclera anicteric. Oral mucosa moist. Deafness to both ears Neck: Supple. no JVD. Respiratory: Lungs are clear to auscultation bilaterally. Respirations regular and nonlabored. Cardiovascular: Regular rate and rhythm with S1-S2. No murmur gallop or rub Gastrointestinal: Abdomen is soft, and nondistended with positive bowel sounds. nontender to palpation all 4 quadrants. Skin: Warm and dry. Normal for ethnicity. Fair turgor Extremities: There is swelling the left anterior thigh with an area of fir
[2022-02-07 14:08] VITALS: BP 128/85; PULSE 79; RESP 18; TEMP 36.5; O2SAT 97
[2022-02-07 20:25] VITALS: BP 127/86; PULSE 86; RESP 16; TEMP 37.1; O2SAT 98
[2022-02-07] MEDS: ACETAMINOPHEN 500 MG TABLET 1000 MG PO (21:08)
[2022-02-07] MEDS: SIMVASTATIN 20 MG TABLET 40 MG PO (21:08)
[2022-02-08 05:17] VITALS: BP 133/74; PULSE 74; RESP 20; TEMP 36.5; O2SAT 95
[2022-02-08 05:25] LABS: Basophils Absolute Auto 0.1 K/mm3 (0.0-0.1); Basophils Percent Auto 0.7 % (0.2-1.2); Eosinophils Absolute Auto 0.3 K/mm3 (0-0.3); Hematocrit 46.4 % (42.0-52.0); Hemoglobin 15.2 g/dL (14.0-18.0); Immature Granulocyte Absolute 0.04 K/mm3 (0.00-0.031); Immature Granulocyte Percent A 0.5 % (0-0.5); Lymphocytes Absolute Auto 2.41 K/mm3 (0.9-3.2); Lymphocytes Percent Auto 28.3 % (18.3-44.2); Mean Corpuscular HGB Conc 32.8 g/dl (32-36); Mean Corpuscular Hemoglobin 29.2 pg (26-34); Mean Corpuscular Volume 89.1 fl (80-100); Monocytes Absolute Auto 0.9 K/mm3 (0.1-0.6); Monocytes Percent Auto 10.3 % (2.6-8.5); Neutrophils Absolute Auto 4.8 K/mm3 (1.3-6.7); Neutrophils Percent Auto 56.2 % (45.5-73.1); Platelet Count Result 307 k/mm3 (150-375); Red Blood Count 5.21 M/mm3 (4.6-6.20); Red Cell Distribution Width 13.2 % (11.5-14.5); White Blood Count 8.5 K/mm3 (4.5-10.0)
[2022-02-08 05:42] LABS: Alanine Aminotransferase 29 U/L (6-50); Albumin Level 3.6 g/dL (3.5-5.1); Alkaline Phosphatase 99 U/L (38-126); Anion Gap 8 mmol/L (8-16); Aspartate Amino Transferase 31 U/L (17-59); Bilirubin,Total 0.5 mg/dL (0.2-1.3); Blood Urea Nitrogen 9 mg/dL (9-20); Calcium 8.7 mg/dL (8.4-10.2); Carbon Dioxide 26 mmol/L (22-30); Chloride 104 mmol/L (98-107); Estimated CRCL calculation 74 ml/min; Estimated Glomerular Filt Rate > 60; Glucose 98 mg/dL (65-110); Potassium 4.1 mmol/L (3.4-5.0); Sodium 138 mmol/L (137-145)
[2022-02-08 06:02] LABS: Vancomycin Trough 14.2 ug/mL (10.0-20.0)
--- NOTE | 2022-02-08 07:02 | PM.IMPN ---
Progress Note: A&P Assessment and Plan (1) Abscess of muscle of thigh: Code(s): M60.059 - Infective myositis, unspecified thigh Status: Acute Assessment and Plan: The patient has a history of MRSA infection in the same leg despite having the hardware removed. Antibiotic day 2- continue empiric vancomycin and zosyn for broad-spectrum coverage (started evening 02/06/22) Adjust antibiotics per cultures. will obtain wound cultures after IR drain inserted. blood cultures with gram positive cocci in 2 of 2 bottles. Repeat blood cultures tomorrow am for antimicrobial clearing. 02/08/22 IR drain insertion today. 02/08/22 Vanc trough 14. Pharmacy to dose/monitor antibiotics. Monitor renal function on Vanc/Zosyn closely. Dr. Tolentino, orthopedics, consulted and appreciate recommendation- does not appear to have bony involvement. He may need 14 days of IV antibiotics depending on culture results. (2) Bacteremia due to Gram-positive bacteria: Code(s): R78.81 - Bacteremia Status: Acute Assessment and Plan: 02/06/22 Blood cultures with gram positive cocci in clusters in both sets. Continue Vancomycin and adjust antibiotics per cultures. (3) Colitis: Code(s): K52.9 - Noninfective gastroenteritis and colitis, unspecified Status: Resolved Assessment and Plan: Incidental finding of acute sigmoid diverticulitis overlying chronic changes of possible IBD on admission CT. Patient denies history of inflammatory bowel disease and no complaints of abdominal pain at this time. last colonoscopy 03/04/[address] Aldridge with internal hemorrhoids and diverticulosis without perforation or abscess noted. General surgery has been consulted and appreciate recommendations. 02/07/22 CT abd/pelvis without evidence of colitis. Tolerating diet. (4) Hyperlipidemia: Qualifiers: Hyperlipidemia type: unspecified Qualified Code(s): E78.5 - Hyperlipidemia, unspecified Code(s): E78.5 - Hyperlipidemia, unspecified Status: Chronic Assessment and Plan: Continue statin (5) Hypertension: Code(s): I10 - Essential (primary) hypertension Status: Acute Assessment and Plan: Blood pressures stable. Continue lisinopril. (6) Tobacco abuse: Code(s): Z72.0 - Tobacco use Status: Chronic Assessment and Plan: Smoking cessation is encouraged. He declines the need for a nicotine patch but asks permission to use nicotine gum. Plan code status: full code Disposition: Return home, lives with brother, possible home health needs if IV abx and dc with drain. Diet: NPO for IR procedure. Resume heart healthy diet after procedure. 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 No new complaints. His left leg is somewhat painful, but unchanged from yesterday. Blood cultures are growing gram positive cocci in both sets. He is awaiting IR abscess drain. Review of Systems Review of Systems: All systems reviewed & are unremarkable except as noted in HPI and below Exam Narrative: General: No acute distress, nontoxic-appearing male. HEENT: Normocephalic. Pupils equal and round. Sclera anicteric. Oral mucosa moist. Deafness to both ears Neck: no JVD. Respiratory: Lungs are clear to auscultation bilaterally. Respirations regular and nonlabored. Cardiovascular: Regular rate and rhythm with S1-S2. No murmur gallop or rub Gastrointestinal: Abdomen soft, nontender and nondistended with positive bowel sounds all 4 quadrants. Skin: Warm and dry. Norm
[2022-02-08] MEDS: ASCORBIC ACID 500 MG TABLET PO (08:11)
[2022-02-08] MEDS: lisinopriL 10 MG TABLET PO (08:11)
[2022-02-08] MEDS: LORATADINE 10 MG TABLET PO (08:11)
[2022-02-08] MEDS: IBUPROFEN 600 MG TABLET PO ×2 (12:01→20:09)
[2022-02-08 13:56] VITALS: BP 135/89; PULSE 88; RESP 16; TEMP 36.6; O2SAT 96
--- NOTE | 2022-02-08 15:13 | PM.PNGS ---
Progress Note: A&P Assessment and Plan (1) Colitis: Code(s): K52.9 - Noninfective gastroenteritis and colitis, unspecified Status: Resolved Assessment and Plan: repeat CT c no colitis, exam cont to be benign, maddy diet, no acute surgical issues, will s/o, call c ?s, issues (2) Abscess of muscle of thigh: Code(s): M60.059 - Infective myositis, unspecified thigh Status: Acute Assessment and Plan: perc drain today, cont abx Subjective Subjective Date/Time Seen: 02/08/22 15:13 no abd pain, maddy diet, reports L thigh pain unchanged Review of Systems Review of Systems: All systems reviewed & are unremarkable except as noted in HPI and below Exam Const: General: cooperative, comfortable and no acute distress Resp: Auscultation: clear to auscultation bilaterally Cardio: Rate: regular rate Rhythm: regular rhythm GI: Inspection: normal to inspection and non-distended GI Palp: No abdominal tenderness, Yes Soft to palpation, No Tenderness to palpation present (GI), No Guarding due to palpation present (GI) and No Rigid due to palpation Objective Data Vital Signs Vital Signs: Vital Signs - 24 hr 02/07/22 20:25 02/08/22 05:17 02/08/22 13:56 Temperature 37.1 C 36.5 C 36.6 C Pulse Rate 86 74 88 Respiratory Rate 16 20 16 Blood Pressure 127/86 133/74 135/89 Pulse Oximetry 98 95 96 Intake/Output Intake/Output: Intake & Output 02/05/22 02/06/22 02/07/22 02/08/22 23:59 23:59 23:59 23:59 Intake Total 500 1355 600 Output Total 2900 700 Balance 500 -1545 -100 Meds/Results Medications: Active Medications Generic Name Dose Route Start Last Admin Trade Name Freq PRN Reason Stop Dose Admin Acetaminophen 1,000 mg 02/07/22 10:12 02/07/22 21:08 Acetaminophen 500 Mg Tablet PO 1,000 mg Q6H PRN Administration Headache Ascorbic Acid 500 mg 02/08/22 09:00 02/08/22 08:11 Ascorbic Acid 500 Mg Tablet PO 500 mg DAILY LAYA Administration Piperacillin/Tazobactam/Dextrose 3.375 gm in 50 mls @ 100 mls/hr 02/07/22 00:00 02/08/22 11:18 Zosyn 3.375 Gm/D5w 50ml Pm IVPB 100 mls/hr Q6H LAYA Administration Vancomycin HCl 1,500 mg in 500 mls @ 333.333 mls/hr 02/08/22 06:00 02/08/22 08:25 Vancomycin 1,500 Mg/D5w 500 Ml IVPB Infused Q12H LAYA Infusion Ibuprofen 600 mg 02/07/22 10:09 02/08/22 12:01 Ibuprofen 600 Mg Tablet PO 600 mg Q8H PRN Administration Pain Lisinopril 10 mg 02/07/22 09:00 02/08/22 08:11 Lisinopril 10 Mg Tablet PO 10 mg DAILY LAYA Administration Loratadine 10 mg 02/07/22 09:00 02/08/22 08:11 Loratadine 10 Mg Tablet PO 10 mg QAM LAYA Administration Nicotine 1 patch 02/06/22 21:36 02/08/22 10:18 Nicotine (*Pbkc) 14 Mg Patch TRANSDERM Not Given QAM LAYA Simvastatin 40 mg 02/07/22 21:00 02/07/22 21:08 Simvastatin 20 Mg Tablet PO 40 mg HS LAYA Administration Radiology Results: ITS Impressions Venous Doppler Study 02/06/22 12:17 IMPRESSION: 1. No deep venous thrombosis. Femur CT 02/06/22 14:49 IMPRESSION: 2.9 cm intramuscular abscess in the mid left vastus intermedius muscle. Acute distal sigmoid colitis overlying likely chronic changes of IBD. Abdomen/Pelvis CT 02/07/22 13:56 IMPRESSION: 1. No specific evidence of colitis. 2. 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 Drainage Catheter Insertion 02/08/22 14:07 IMPRESSION: 1. Successful ultrasound-guided anterior left thigh abscess drainage catheter placement with drainage of the 2 x 1 cm abscess yielding 2 mL of fluid which was sent for Gram stain and cultures. Labs Labs: Laboratory Results - last 24 hr 02/08/22 02/08/22 02/08/22 05:03 05:03 05:03 WBC 8.5 RBC 5.21 Hgb 15.2 Hct 46.4 MCV 89.1 MCH 29.2 MCHC 32.8 RDW 13.2 Plt Count 307 MPV 9.0 Immature Gran % (Auto) 0.5 Neut % (Auto) 56.2 Lymph % (Auto) 28.3 [place] % (Aut
[2022-02-08] MEDS: ACETAMINOPHEN 500 MG TABLET 1000 MG PO (17:39)
[2022-02-08] MEDS: PANTOPRAZOLE 40 MG TABLET PO (20:12)
[2022-02-08] MEDS: SIMVASTATIN 20 MG TABLET 40 MG PO (20:53)
[2022-02-08 21:00] VITALS: BP 134/94; PULSE 85; RESP 16; TEMP 36.4; O2SAT 95
[2022-02-09 05:03] LABS: Basophils Absolute Auto 0.1 K/mm3 (0.0-0.1); Basophils Percent Auto 0.5 % (0.2-1.2); Eosinophils Absolute Auto 0.3 K/mm3 (0-0.3); Eosinophils Percent Auto 2.9 % (0-4.4); Hematocrit 46.2 % (42.0-52.0); Hemoglobin 15.2 g/dL (14.0-18.0); Immature Granulocyte Absolute 0.04 K/mm3 (0.00-0.031); Immature Granulocyte Percent A 0.4 % (0-0.5); Lymphocytes Absolute Auto 2.47 K/mm3 (0.9-3.2); Mean Corpuscular HGB Conc 32.9 g/dl (32-36); Mean Corpuscular Hemoglobin 28.9 pg (26-34); Mean Corpuscular Volume 87.8 fl (80-100); Mean Platelet Volume 9.2 fl (7.4-10.4); Monocytes Absolute Auto 1.1 K/mm3 (0.1-0.6); Monocytes Percent Auto 10.3 % (2.6-8.5); Neutrophils Absolute Auto 6.8 K/mm3 (1.3-6.7); Neutrophils Percent Auto 62.9 % (45.5-73.1); Platelet Count Result 313 k/mm3 (150-375); Red Blood Count 5.26 M/mm3 (4.6-6.20); Red Cell Distribution Width 13.1 % (11.5-14.5); White Blood Count 10.8 K/mm3 (4.5-10.0)
[2022-02-09 05:14] LABS: Alanine Aminotransferase 30 U/L (6-50); Albumin Level 3.5 g/dL (3.5-5.1); Alkaline Phosphatase 108 U/L (38-126); Anion Gap 9 mmol/L (8-16); Aspartate Amino Transferase 34 U/L (17-59); Bilirubin,Total 0.7 mg/dL (0.2-1.3); Blood Urea Nitrogen 16 mg/dL (9-20); Calcium 8.7 mg/dL (8.4-10.2); Carbon Dioxide 22 mmol/L (22-30); Chloride 104 mmol/L (98-107); Estimated CRCL calculation 38 ml/min; Estimated Glomerular Filt Rate 39; Glucose 98 mg/dL (65-110); Potassium 3.8 mmol/L (3.4-5.0); Sodium 135 mmol/L (137-145)
[2022-02-09 05:26] VITALS: BP 124/79; PULSE 79; RESP 14; TEMP 36.5; O2SAT 96
--- NOTE | 2022-02-09 09:15 | PM.IMPN ---
Progress Note: A&P Assessment and Plan (1) Abscess of muscle of thigh: Code(s): M60.059 - Infective myositis, unspecified thigh Status: Acute Assessment and Plan: History of MRSA infection in the same leg despite having the hardware removed. Antibiotic day 3- continue empiric vancomycin and zosyn for broad-spectrum coverage (started evening 02/06/22) Adjust antibiotics per cultures. wound cultures shows gram positive cocci, however, not resulted Blood cultures staphylococcus epidermis in 2 of 2 bottles. Repeat blood cultures pending 02/08/22 IR drain insertion, scant drainage 02/08/22 Vanc trough 14. Pharmacy to dose/monitor antibiotics. Dr. Tolentino, orthopedics, consulted and appreciate recommendation- does not appear to have bony involvement. 14 days of IV antibiotics depending on culture results. (2) Bacteremia due to Gram-positive bacteria: Code(s): R78.81 - Bacteremia Status: Acute Assessment and Plan: 02/06/22 Blood cultures staphylococcus epidermis in both bottles. . Repeat cultures NGTD Vancomycin on hold due to acute renal failure Could potentially need skilled nursing antibiotics blood cultures grew out staphylococcus epidermis, staphylococcus hominis WBC is bouncing back and forth currently at 10.7 Continue to trend labs (3) Colitis: Code(s): K52.9 - Noninfective gastroenteritis and colitis, unspecified Status: Resolved Assessment and Plan: Incidental finding of acute sigmoid diverticulitis overlying chronic changes of possible IBD on admission CT. No history of inflammatory bowel disease and no complaints of abdominal pain at this time. last colonoscopy 03/04/[address] Aldridge with internal hemorrhoids and diverticulosis without perforation or abscess noted. General surgery consulted 02/07/22 CT abd/pelvis without evidence of colitis. Tolerating diet. (4) Hyperlipidemia: Qualifiers: Hyperlipidemia type: unspecified Qualified Code(s): E78.5 - Hyperlipidemia, unspecified Code(s): E78.5 - Hyperlipidemia, unspecified Status: Chronic Assessment and Plan: Continue statin (5) Hypertension: Code(s): I10 - Essential (primary) hypertension Status: Acute Assessment and Plan: Current BP is124/79 Blood pressures stable Continue lisinopril Trend Blood pressures Adjust therapy as indicated (6) Tobacco abuse: Code(s): Z72.0 - Tobacco use Status: Chronic Assessment and Plan: Smoking cessation is encouraged. 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 He is complaining of pain in his back and stomach. He stated that his pain is about a 5/10. He did state that he is getting up and walking around, however, very little. Drain is still in place and is draining a dark red thick drainage. The drainage is very scant. He did jolt in pain with palpation. He admits to sleeping well. He denies any chest pain, shortness of breath, nausea, vomiting, diarrhea, constipation, weakness, and fatigue. Patient is deaf and communicates with ASL. Sign language provided and sister also helped with some communication. Review of Systems Review of Systems: All systems reviewed & are unremarkable except as noted in HPI and below Exam Const: General: cooperative, healthy appearing, no acute distress, well developed, alert and awake
--- NOTE | 2022-02-09 09:15 | P.PNIM_ITS ---
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 * Antibiotic day 3- continue empiric vancomycin and zosyn for broad-spectrum coverage (started evening 02/06/22) * Adjust antibiotics per cultures. * wound cultures shows gram positive cocci, however, not resulted * Blood cultures staphylococcus epidermis in 2 of 2 bottles. * Repeat blood cultures pending * 02/08/22 IR drain insertion, scant drainage * 02/08/22 Vanc trough 14. Pharmacy to dose/monitor antibiotics. * Dr. Tolentino, orthopedics, consulted and appreciate recommendation- does not appear to have bony involvement. * 14 days of IV antibiotics depending on culture results. (2) Bacteremia due to Gram-positive bacteria: Code(s): R78.81 - Bacteremia Status: Acute Assessment and Plan: * 02/06/22 Blood cultures staphylococcus epidermis in both bottles. . * Repeat cultures NGTD * Vancomycin on hold due to acute renal failure * Could potentially need long term care social worker antibiotics * blood cultures grew out staphylococcus epidermis, staphylococcus hominis * WBC is bouncing back and forth currently at 10.7 * Continue to trend labs (3) Colitis: Code(s): K52.9 - Noninfective gastroenteritis and colitis, unspecified Status: Resolved Assessment and Plan: * Incidental finding of acute sigmoid diverticulitis overlying chronic changes of possible IBD on admission CT. * No history of inflammatory bowel disease and no complaints of abdominal pain at this time. * last colonoscopy 03/04/[address] Aldridge with internal hemorrhoids and diverticulosis without perforation or abscess noted. * General surgery consulted * 02/07/22 CT abd/pelvis without evidence of colitis. Tolerating diet. (4) Hyperlipidemia: Qualifiers: Hyperlipidemia type: unspecified Qualified Code(s): E78.5 - Hyperlipidemia, unspecified Code(s): E78.5 - Hyperlipidemia, unspecified Status: Chronic Assessment and Plan: * Continue statin (5) Hypertension: Code(s): I10 - Essential (primary) hypertension Status: Acute Assessment and Plan: * Current BP is124/79 * Blood pressures stable * Continue lisinopril * Trend Blood pressures * Adjust therapy as indicated (6) Tobacco abuse: Code(s): Z72.0 - Tobacco use Status: Chronic Assessment and Plan: * Smoking cessation is encouraged. 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 He is complaining of pain in his back and stomach. He stated that his pain is about a 5/10. He did state that he is getting up and walking around, however, very little. Drain is still in place and is draining a dark red thick drainage. The drainage is very scant. He did jolt in pain with palpation. He admits to sleepin
[2022-02-09] MEDS: lisinopriL 10 MG TABLET PO (09:56)
[2022-02-09] MEDS: ASCORBIC ACID 500 MG TABLET PO (09:56)
[2022-02-09] MEDS: LORATADINE 10 MG TABLET PO (09:56)
[2022-02-09] MEDS: PANTOPRAZOLE 40 MG TABLET PO (09:57)
[2022-02-09] MEDS: NICOTINE (*PBKC) 14 MG PATCH 1 PATCH TRANSDERM (09:57)
[2022-02-09] MEDS: TIZANIDINE HCL 2 MG TABLET PO (10:27)
--- NOTE | 2022-02-09 13:30 | PM.PNORT ---
Progress Note: A&P Assessment and Plan (1) Abscess of muscle of thigh: Code(s): M60.059 - Infective myositis, unspecified thigh Status: Acute Plan 56-year-old male with an intramuscular left thigh abscess. Does not appear to be in contact with the femur and wound drain is producing sanguinous/serosanguineous fluid. He likely will not need surgical debridement. Continue antibiotics per hospitalist recommendation. Following. Subjective Subjective Date/Time Seen: 02/09/22 07:30 Principal diagnosis: L Thigh Intramuscular Abscess Interval history: 56-year-old male with a left thigh abscess. Interventional Radiology placed a drain yesterday, 02/08/2022. He has no pain or redness around the site. There is scant sanguinous/ serosanguinous drainage. Review of Systems Constitutional: Constitutional: Reports as per HPI Exam Const: General: comfortable Resp: Effort & Inspection: normal respiratory effort Skin: Wounds: wounds noted (left thigh, with drain in placed) Other: Sanguinous/serosanguineous drainage Extrem: Other: Exam of the left lower extremity shows drainage in place. No redness or effusion around the site. Psych: Appearance: grossly normal Objective Data Vital Signs Vital Signs: Vital Signs - 24 hr 02/08/22 13:56 02/08/22 21:00 02/09/22 05:26 Temperature 97.9 F 97.6 F 97.7 F Pulse Rate 88 85 79 Respiratory Rate 16 16 14 Blood Pressure 135/89 134/94 H 124/79 Pulse Oximetry 96 95 96 Oxygen Delivery 02/09/22 08:40 Temperature Pulse Rate Respiratory Rate Blood Pressure Pulse Oximetry Oxygen Delivery Room Air Intake/Output Intake/Output: Intake & Output 02/06/22 02/07/22 02/08/22 02/09/22 23:59 23:59 23:59 23:59 Intake Total 500 1355 1680 1642 Output Total 2900 1975 1205 Balance 781 -9136 -609 437 Meds/Results Medications: Active Medications Generic Name Dose Route Start Last Admin Trade Name Freq PRN Reason Stop Dose Admin Acetaminophen 1,000 mg 02/07/22 10:12 02/08/22 17:39 Acetaminophen 500 Mg Tablet PO 1,000 mg Q6H PRN Administration Headache Ascorbic Acid 500 mg 02/08/22 09:00 02/09/22 09:56 Ascorbic Acid 500 Mg Tablet PO 500 mg DAILY LAYA Administration Calcium Carbonate 200 mg 02/08/22 18:50 Calcium Carbonate (Tums) 500 Mg (200 Mg Elemental) PO Q6H PRN Indigestion Piperacillin/Tazobactam/Dextrose 3.375 gm in 50 mls @ 100 mls/hr 02/07/22 00:00 02/09/22 12:45 Zosyn 3.375 Gm/D5w 50ml Pm IVPB Infused Q6H LAYA Infusion Vancomycin HCl 1,500 mg in 500 mls @ 333.333 mls/hr 02/08/22 06:00 02/09/22 08:45 Vancomycin 1,500 Mg/D5w 500 Ml IVPB Infused Q12H LAYA Infusion Ibuprofen 600 mg 02/07/22 10:09 02/08/22 20:09 Ibuprofen 600 Mg Tablet PO 600 mg Q8H PRN Administration Pain Lisinopril 10 mg 02/07/22 09:00 02/09/22 09:56 Lisinopril 10 Mg Tablet PO 10 mg DAILY LAYA Administration Loratadine 10 mg 02/07/22 09:00 02/09/22 09:56 Loratadine 10 Mg Tablet PO 10 mg QAM LAYA Administration Nicotine 1 patch 02/09/22 10:16 Nicotine (*Pbkc) 21 Mg Patch TRANSDERM QAM PRN tobacco cessation Nicotine Polacrilex 4 mg 02/09/22 10:16 Nicotine (*Pbkc) 4 Mg Gum PO PRN PRN Nicotine Cravings Pantoprazole Sodium 40 mg 02/09/22 09:00 02/09/22 09:57 Pantoprazole 40 Mg Tablet PO 40 mg QAM LAYA Administration Simvastatin 40 mg 02/07/22 21:00 02/08/22 20:53 Simvastatin 20 Mg Tablet PO 40 mg HS LAYA Administration Tizanidine HCl 2 mg 02/09/22 09:55 02/09/22 10:27 Tizanidine Hcl 2 Mg Tablet PO 2 mg TID PRN Administration Muscle Spasm Radiology Results: ITS Impressions Venous Doppler Study 02/06/22 12:17 IMPRESSION: 1. No deep venous thrombosis. Femur CT 02/06/22 14:49 IMPRESSION: 2.9 cm intramuscular abscess in the mid left vastus intermedius muscle. Acute distal sigmoid coliti
[2022-02-09 14:15] VITALS: BP 125/78; PULSE 92; RESP 14; TEMP 36.9; O2SAT 98
--- NOTE | 2022-02-09 14:16 | PC.NURSE ---
On 02/09/22, the student, [Kelli Melendez], provided care and completed [facility] documentation on this patient. I have reviewed the student's documentation and agree with the findings.
[2022-02-09] MEDS: IBUPROFEN 600 MG TABLET PO (14:30)
[2022-02-09] MEDS: cefTRIAXone 2 GM in SODIUM CHLORIDE 0.9% IV 100 ML 200 ML IVPB (17:40)
[2022-02-09] MEDS: ACETAMINOPHEN 500 MG TABLET 1000 MG PO (17:51)
[2022-02-09 18:02] LABS: Vancomycin Trough 35.8 ug/mL (10.0-20.0)
--- NOTE | 2022-02-09 19:31 | PC.NURSE ---
Vancomycin trough reported by Amanda DE JESUS, pharmacist to redo vancomycin trough was high 35.8
--- NOTE | 2022-02-09 19:33 | PC.NURSE ---
Holding vancomycin trough 35.8, reported to [facility] pharmacist, vancomycin held tonight, redraw trough in am, possible resume vancomycin tomorrow after trough results.
[2022-02-09 19:36] VITALS: PULSE 92; RESP 14; O2SAT 98
[2022-02-09] MEDS: SIMVASTATIN 20 MG TABLET 40 MG PO (20:21)
[2022-02-09 20:25] VITALS: BP 129/82; PULSE 83; RESP 16; TEMP 36.9; O2SAT 98
[2022-02-10 05:21] LABS: Basophils Percent Auto 0.4 % (0.2-1.2); Eosinophils Absolute Auto 0.2 K/mm3 (0-0.3); Eosinophils Percent Auto 2.5 % (0-4.4); Hematocrit 45.8 % (42.0-52.0); Immature Granulocyte Absolute 0.04 K/mm3 (0.00-0.031); Immature Granulocyte Percent A 0.4 % (0-0.5); Lymphocytes Absolute Auto 2.36 K/mm3 (0.9-3.2); Lymphocytes Percent Auto 25.3 % (18.3-44.2); Mean Corpuscular HGB Conc 32.8 g/dl (32-36); Mean Corpuscular Volume 88.6 fl (80-100); Mean Platelet Volume 9.2 fl (7.4-10.4); Monocytes Percent Auto 10.4 % (2.6-8.5); Neutrophils Absolute Auto 5.7 K/mm3 (1.3-6.7); Platelet Count Result 327 k/mm3 (150-375); Red Blood Count 5.17 M/mm3 (4.6-6.20); Red Cell Distribution Width 13.2 % (11.5-14.5); White Blood Count 9.3 K/mm3 (4.5-10.0)
[2022-02-10 05:32] LABS: Alanine Aminotransferase 24 U/L (6-50); Albumin Level 3.8 g/dL (3.5-5.1); Alkaline Phosphatase 95 U/L (38-126); Anion Gap 15 mmol/L (8-16); Aspartate Amino Transferase 23 U/L (17-59); Bilirubin,Total 0.4 mg/dL (0.2-1.3); Blood Urea Nitrogen 18 mg/dL (9-20); Calcium 8.5 mg/dL (8.4-10.2); Carbon Dioxide 21 mmol/L (22-30); Chloride 105 mmol/L (98-107); Estimated CRCL calculation 33 ml/min; Estimated Glomerular Filt Rate 33; Glucose 96 mg/dL (65-110); Potassium 4.2 mmol/L (3.4-5.0); Sodium 141 mmol/L (137-145)
[2022-02-10] MEDS: LACTATED RINGERS 1,000 ML 100 ML IV CONT (06:53)
--- NOTE | 2022-02-10 06:54 | PC.NURSE ---
10 ml out of drain, bloody drainage continues this shift.
--- NOTE | 2022-02-10 06:59 | PC.NURSE ---
placed urine collection cup and clear urinal in pt room with sign to remind pt and staff urine sample needs collected, ordered 02/10/22 at 628 am this morning.
[2022-02-10 07:02] VITALS: BP 143/88; PULSE 81; RESP 14; TEMP 36.4; O2SAT 96
[2022-02-10] MEDS: lisinopriL 10 MG TABLET PO (08:52)
[2022-02-10] MEDS: ASCORBIC ACID 500 MG TABLET PO (08:52)
[2022-02-10] MEDS: LORATADINE 10 MG TABLET PO (08:52)
[2022-02-10] MEDS: PANTOPRAZOLE 40 MG TABLET PO (08:52)
[2022-02-10 09:11] LABS: Creatinine Urine 38.1 mg/dL; Urea Random Urine 174 MG/DL
[2022-02-10 09:12] LABS: Sodium Urine Random 51 meq/L
--- NOTE | 2022-02-10 10:15 | P.PNIM_ITS ---
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 * Antibiotics changed to linezolid until the * Adjust antibiotics per cultures. * wound cultures shows staphylococcus aureus * Blood cultures staphylococcus epidermis and staphylococcus hominis in 2 of 2 bottles. * Repeat blood cultures NGTD * 02/08/22 IR drain insertion, scant drainage * Dr. Tolentino, orthopedics, consulted and appreciate recommendation- does not ap pear to have bony involvement. * Switched antibiotics to Linezolid * ID pharm on case (2) Bacteremia due to Gram-positive bacteria: Code(s): R78.81 - Bacteremia Status: Acute Assessment and Plan: * 02/06/22 Blood cultures staphylococcus epidermis, and staphylococcus hominis in both bottles. . * Repeat cultures NGTD * Switch antibiotics to linezolid * blood cultures grew out staphylococcus epidermis, staphylococcus hominis * WBC currently 9.3 * Continue to trend labs (3) Colitis: Code(s): K52.9 - Noninfective gastroenteritis and colitis, unspecified Status: Resolved Assessment and Plan: * Incidental finding of acute sigmoid diverticulitis overlying chronic changes of possible IBD on admission CT. * No history of inflammatory bowel disease and no complaints of abdominal pain at this time. * last colonoscopy 03/04/[address] Aldridge with internal hemorrhoids and diverticulosis without perforation or abscess noted. * General surgery consulted * 02/07/22 CT abd/pelvis without evidence of colitis. Tolerating diet. (4) Hyperlipidemia: Qualifiers: Hyperlipidemia type: unspecified Qualified Code(s): E78.5 - Hyperlipidemia, unspecified Code(s): E78.5 - Hyperlipidemia, unspecified Status: Chronic Assessment and Plan: * Continue statin (5) Hypertension: Code(s): I10 - Essential (primary) hypertension Status: Acute Assessment and Plan: * Current BP is143/88 * Blood pressures stable * Continue lisinopril * Trend Blood pressures * Adjust therapy as indicated (6) Tobacco abuse: Code(s): Z72.0 - Tobacco use Status: Chronic Assessment and Plan: * Smoking cessation is encouraged. * declines the need for a nicotine patch however ordered PRN * nicotine gum ordered PRN * Education given for 8 minutes (7) ENOCH (acute kidney injury): Code(s): N17.9 - Acute kidney failure, unspecified Status: Acute Assessment and Plan: * BUN/Cr 18/2.10 * Vancomycin discontinued * probably related to antibiotics * IV fluids started * trend labs * Urine studies Ur creatinine 38.1, Ur sodium 51, Ur urea 174, Ur Osmolality pending * Calculate FENA 2.0 indicating ATN Time Spent With Patient Time with patient: Greater than 35 minutes Subjective Date/time seen: 02/10/22 1015 Interval history: 02/10/22 1015 Patient is very sad. He is really wanting to go home. Renal function is not doing great today. He denies any pain at this time. He also denies shortness of breath, nausea, vomiting, diarrhea constipation, weakness or fatigue. He does have a little pain in his back a
--- NOTE | 2022-02-10 10:15 | PM.IMPN ---
Progress Note: A&P Assessment and Plan (1) Abscess of muscle of thigh: Code(s): M60.059 - Infective myositis, unspecified thigh Status: Acute Assessment and Plan: History of MRSA infection in the same leg despite having the hardware removed. Antibiotics changed to linezolid until the Adjust antibiotics per cultures. wound cultures shows staphylococcus aureus Blood cultures staphylococcus epidermis and staphylococcus hominis in 2 of 2 bottles. Repeat blood cultures NGTD 02/08/22 IR drain insertion, scant drainage Dr. Tolentino, orthopedics, consulted and appreciate recommendation- does not appear to have bony involvement. Switched antibiotics to Linezolid ID pharm on case (2) Bacteremia due to Gram-positive bacteria: Code(s): R78.81 - Bacteremia Status: Acute Assessment and Plan: 02/06/22 Blood cultures staphylococcus epidermis, and staphylococcus hominis in both bottles. . Repeat cultures NGTD Switch antibiotics to linezolid blood cultures grew out staphylococcus epidermis, staphylococcus hominis WBC currently 9.3 Continue to trend labs (3) Colitis: Code(s): K52.9 - Noninfective gastroenteritis and colitis, unspecified Status: Resolved Assessment and Plan: Incidental finding of acute sigmoid diverticulitis overlying chronic changes of possible IBD on admission CT. No history of inflammatory bowel disease and no complaints of abdominal pain at this time. last colonoscopy 03/04/[address] Aldridge with internal hemorrhoids and diverticulosis without perforation or abscess noted. General surgery consulted 02/07/22 CT abd/pelvis without evidence of colitis. Tolerating diet. (4) Hyperlipidemia: Qualifiers: Hyperlipidemia type: unspecified Qualified Code(s): E78.5 - Hyperlipidemia, unspecified Code(s): E78.5 - Hyperlipidemia, unspecified Status: Chronic Assessment and Plan: Continue statin (5) Hypertension: Code(s): I10 - Essential (primary) hypertension Status: Acute Assessment and Plan: Current BP is143/88 Blood pressures stable Continue lisinopril Trend Blood pressures Adjust therapy as indicated (6) Tobacco abuse: Code(s): Z72.0 - Tobacco use Status: Chronic Assessment and Plan: Smoking cessation is encouraged. declines the need for a nicotine patch however ordered PRN nicotine gum ordered PRN Education given for 8 minutes (7) ENOCH (acute kidney injury): Code(s): N17.9 - Acute kidney failure, unspecified Status: Acute Assessment and Plan: BUN/Cr 18/2.10 Vancomycin discontinued probably related to antibiotics IV fluids started trend labs Urine studies Ur creatinine 38.1, Ur sodium 51, Ur urea 174, Ur Osmolality pending Calculate FENA 2.0 indicating ATN Time Spent With Patient Time with patient: Greater than 35 minutes Subjective Date/time seen: 02/10/22 1015 Interval history: 02/10/22 1015 Patient is very sad. He is really wanting to go home. Renal function is not doing great today. He denies any pain at this time. He also denies shortness of breath, nausea, vomiting, diarrhea constipation, weakness or fatigue. He does have a little pain in his back and stated that the tizanidine did help with that. Drain is still present with scant drainage. Sister is present through exam. 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 He is complaining of pain in his back and stomach. He stated that his pain is about a 5/10. He did state that he is getting up and walking arou
--- NOTE | 2022-02-10 11:18 | PM.PNORT ---
Progress Note: A&P Assessment and Plan (1) Abscess of muscle of thigh: Code(s): M60.059 - Infective myositis, unspecified thigh Status: Acute Plan Staph aureus isolated. Awaiting sensitivities. Likely be able to get the drain out tomorrow. Following. Subjective Subjective Date/Time Seen: 02/10/22 11:18 Principal diagnosis: Dx: left thigh abscess Interval history: Feeling better. Only discomfort seems to be from the presence of the drainage catheter at this point. Renal issue noted. Exam Const: General: cooperative, alert and awake Orientation/consciousness: patient oriented x3 HENMT: Head: normal to inspection Ears: hearing grossly abnormal bilaterally Resp: Effort & Inspection: normal respiratory effort GI: Inspection: non-distended GI Palp: No abdominal tenderness Neuro: General: patient oriented x3 Extrem: Other: Exam of Left thigh reveals no swelling and virtually no tenderness except for the catheter enters the skin. No erythema. Scant drainage which appears to be secondary to the flushes being done. Psych: Mental Status: mental status grossly normal Objective Data Vital Signs Vital Signs: Vital Signs - 24 hr 02/09/22 14:15 02/09/22 19:36 02/09/22 20:25 Temperature 98.5 F 98.4 F Pulse Rate 92 92 83 Respiratory Rate 14 14 16 Blood Pressure 125/78 129/82 Pulse Oximetry 98 98 98 Oxygen Delivery Room Air 02/10/22 07:02 Temperature 97.6 F Pulse Rate 81 Respiratory Rate 14 Blood Pressure 143/88 H Pulse Oximetry 96 Oxygen Delivery Intake/Output Intake/Output: Intake & Output 02/07/22 02/08/22 02/09/22 02/10/22 23:59 23:59 23:59 23:59 Intake Total 1355 / 1355 1680 / 1680 2804 / 2804 1030 / 1030 Output Total 2900 / 2900 1974 / 1974 1905 / 1905 800 / 800 Balance -1545 / -1545 -295 / -295 899 / 899 230 / 230 Meds/Results Medications: Active Medications Generic Name Dose Route Start Last Admin Trade Name Freq PRN Reason Stop Dose Admin Acetaminophen 1,000 mg 02/07/22 10:12 02/09/22 17:51 Acetaminophen 500 Mg Tablet PO 1,000 mg Q6H PRN Administration Headache Ascorbic Acid 500 mg 02/08/22 09:00 02/10/22 08:52 Ascorbic Acid 500 Mg Tablet PO 500 mg DAILY LAYA Administration Calcium Carbonate 200 mg 02/08/22 18:50 Calcium Carbonate (Tums) 500 Mg (200 Mg Elemental) PO Q6H PRN Indigestion Lactated Ringer's 1,000 mls @ 100 mls/hr 02/10/22 06:35 02/10/22 06:53 Lr - Lactated Ringers Iv IV CONT 100 mls/hr .Q10H LAYA Administration Ibuprofen 600 mg 02/07/22 10:09 02/09/22 14:30 Ibuprofen 600 Mg Tablet PO 600 mg Q8H PRN Administration Pain Linezolid 600 mg 02/10/22 21:00 Linezolid 600 Mg Tablet PO 02/22/22 23:59 Q12HR LAYA Lisinopril 10 mg 02/07/22 09:00 02/10/22 08:52 Lisinopril 10 Mg Tablet PO 10 mg DAILY LAYA Administration Loratadine 10 mg 02/07/22 09:00 02/10/22 08:52 Loratadine 10 Mg Tablet PO 10 mg QAM LAYA Administration Nicotine 1 patch 02/09/22 10:16 Nicotine (*Pbkc) 21 Mg Patch TRANSDERM QAM PRN tobacco cessation Nicotine Polacrilex 4 mg 02/09/22 10:16 Nicotine (*Pbkc) 4 Mg Gum PO PRN PRN Nicotine Cravings Pantoprazole Sodium 40 mg 02/09/22 09:00 02/10/22 08:52 Pantoprazole 40 Mg Tablet PO 40 mg QAM LAYA Administration Simvastatin 40 mg 02/07/22 21:00 02/09/22 20:21 Simvastatin 20 Mg Tablet PO 40 mg HS LAYA Administration Tizanidine HCl 2 mg 02/09/22 09:55 02/09/22 10:27 Tizanidine Hcl 2 Mg Tablet PO 2 mg TID PRN Administration Muscle Spasm Radiology Results: ITS Impressions Venous Doppler Study 02/06/22 12:17 IMPRESSION: 1. No deep venous thrombosis. Femur CT 02/06/22 14:49 IMPRESSION: 2.9 cm intramuscular abscess in the mid left vastus intermedius muscle. Acute distal sigmoid colitis overlying likely chronic changes of IBD. ADDENDUM: 02/09/22
[2022-02-10 14:00] VITALS: BP 145/87; PULSE 87; RESP 16; TEMP 36.9; O2SAT 98
[2022-02-10] MEDS: ACETAMINOPHEN 500 MG TABLET 1000 MG PO (14:04)
[2022-02-10] MEDS: IBUPROFEN 600 MG TABLET PO (15:21)
[2022-02-10 20:17] VITALS: BP 130/80; PULSE 79; RESP 16; TEMP 36.4; O2SAT 98
[2022-02-10] MEDS: LINEZOLID 600 MG TABLET PO (20:23)
[2022-02-10] MEDS: SIMVASTATIN 20 MG TABLET 40 MG PO (20:23)
--- NOTE | 2022-02-10 21:04 | PC.NURSE ---
per transitioned to PO abx 02/10/22, pt to possible d/c home tomorrow.
[2022-02-11 05:08] LABS: Basophils Absolute Auto 0.1 K/mm3 (0.0-0.1); Basophils Percent Auto 0.6 % (0.2-1.2); Eosinophils Absolute Auto 0.3 K/mm3 (0-0.3); Eosinophils Percent Auto 3.1 % (0-4.4); Hematocrit 42.7 % (42.0-52.0); Hemoglobin 14.2 g/dL (14.0-18.0); Immature Granulocyte Absolute 0.04 K/mm3 (0.00-0.031); Immature Granulocyte Percent A 0.4 % (0-0.5); Lymphocytes Absolute Auto 2.22 K/mm3 (0.9-3.2); Lymphocytes Percent Auto 24.7 % (18.3-44.2); Mean Corpuscular HGB Conc 33.3 g/dl (32-36); Mean Corpuscular Volume 87.3 fl (80-100); Mean Platelet Volume 9.8 fl (7.4-10.4); Monocytes Absolute Auto 0.9 K/mm3 (0.1-0.6); Monocytes Percent Auto 10.1 % (2.6-8.5); Neutrophils Absolute Auto 5.5 K/mm3 (1.3-6.7); Neutrophils Percent Auto 61.1 % (45.5-73.1); Platelet Count Result 345 k/mm3 (150-375); Red Blood Count 4.89 M/mm3 (4.6-6.20); Red Cell Distribution Width 13.1 % (11.5-14.5)
[2022-02-11 05:20] VITALS: BP 146/90; PULSE 92; RESP 14; TEMP 36.4; O2SAT 95
[2022-02-11 05:20] LABS: Alanine Aminotransferase 32 U/L (6-50); Albumin Level 3.5 g/dL (3.5-5.1); Alkaline Phosphatase 93 U/L (38-126); Anion Gap 12 mmol/L (8-16); Aspartate Amino Transferase 28 U/L (17-59); Bilirubin,Total 0.3 mg/dL (0.2-1.3); Blood Urea Nitrogen 17 mg/dL (9-20); Calcium 8.6 mg/dL (8.4-10.2); Carbon Dioxide 24 mmol/L (22-30); Chloride 104 mmol/L (98-107); Estimated CRCL calculation 38 ml/min; Estimated Glomerular Filt Rate 39; Glucose 104 mg/dL (65-110); Magnesium 2.3 mg/dL (1.6-2.3); Potassium 4.2 mmol/L (3.4-5.0); Sodium 140 mmol/L (137-145)
[2022-02-11] MEDS: LINEZOLID 600 MG TABLET PO (08:36)
[2022-02-11] MEDS: PANTOPRAZOLE 40 MG TABLET PO (08:37)
[2022-02-11] MEDS: ASCORBIC ACID 500 MG TABLET PO (08:37)
[2022-02-11] MEDS: lisinopriL 10 MG TABLET PO (08:37)
[2022-02-11] MEDS: LORATADINE 10 MG TABLET PO (08:38)
--- NOTE | 2022-02-11 09:45 | P.DS_ITS ---
DS: Admitting Diagnosis Discharge Date 02/11/22 0945 Admitting Diagnosis Abscess of the thigh/bacteremia DS: Discharge Diagnosis Discharge Diagnosis (1) Abscess of muscle of thigh: Code(s): M60.059 - Infective myositis, unspecified thigh Status: Acute Assessment and Plan: * History of MRSA infection in the same leg despite having the hardware removed. * Antibiotics changed to linezolid until the * Adjust antibiotics per cultures. * wound cultures shows staphylococcus aureus * Blood cultures staphylococcus epidermis and staphylococcus hominis in 2 of 2 bottles. * Repeat blood cultures NGTD * 02/08/22 IR drain insertion, scant drainage * Dr. Tolentino, orthopedics, consulted and appreciate recommendation- does not appear to have bony involvement. * Switched antibiotics to Linezolid * ID pharm on case 15 minutes Ortho is ok with drain being removed. Consulted with Dr. Walsh about removal. Suture was cut holding the pigtail to the skin. The internal string was unravelled. Drain was removed. Tip was intact, with string attached. (2) Bacteremia due to Gram-positive bacteria: Code(s): R78.81 - Bacteremia Status: Acute Assessment and Plan: * 02/06/22 Blood cultures staphylococcus epidermis, and staphylococcus hominis in both bottles. . * Repeat cultures NGTD * Switch antibiotics to linezolid * blood cultures grew out staphylococcus epidermis, staphylococcus hominis * WBC currently 9.0 * Continue to trend labs (3) Colitis: Code(s): K52.9 - Noninfective gastroenteritis and colitis, unspecified Status: Resolved Assessment and Plan: * Incidental finding of acute sigmoid diverticulitis overlying chronic changes of possible IBD on admission CT. * No history of inflammatory bowel disease and no complaints of abdominal pain at this time. * last colonoscopy 03/04/[address] Aldridge with internal hemorrhoids and diverticulosis without perforation or abscess noted. * General surgery consulted * 02/07/22 CT abd/pelvis without evidence of colitis. Tolerating diet. (4) Hyperlipidemia: Qualifiers: Hyperlipidemia type: unspecified Qualified Code(s): E78.5 - Hyperlipidemia, unspecified Code(s): E78.5 - Hyperlipidemia, unspecified Status: Chronic Assessment and Plan: * Continue statin (5) Hypertension: Code(s): I10 - Essential (primary) hypertension Status: Acute Assessment and Plan: * Current BP is 146/90 * Blood pressures stable * Continue lisinopril * Trend Blood pressures * Adjust therapy as indicated (6) Tobacco abuse: Code(s): Z72.0 - Tobacco use Status: Chronic Assessment and Plan: * Smoking cessation is encouraged. * declines the need for a nicotine patch however ordered PRN * nicotine gum ordered PRN * Education given for 8 minutes (7) ENOCH (acute kidney injury): Code(s): N17.9 - Acute kidney failure, unspecified Status: Acute Assessment and Plan: * BUN/Cr 17/1.80 * Vancomycin discontinued * probably related to antibiotics * IV fluids started * trend labs * Urine studies Ur creatinine 38.1, Ur sodium 51, Ur urea 174, Ur Osmolality pending * Calculate FENA 2.0 indicating ATN DS: Summary Hospital Course Hospital Course: Patient is a 56-year-old mal
--- NOTE | 2022-02-11 09:45 | PM.DS ---
DS: Admitting Diagnosis Discharge Date 02/11/2245 Admitting Diagnosis Abscess of the thigh/bacteremia DS: Discharge Diagnosis Discharge Diagnosis (1) Abscess of muscle of thigh: Code(s): M60.059 - Infective myositis, unspecified thigh Status: Acute Assessment and Plan: History of MRSA infection in the same leg despite having the hardware removed. Antibiotics changed to linezolid until the Adjust antibiotics per cultures. wound cultures shows staphylococcus aureus Blood cultures staphylococcus epidermis and staphylococcus hominis in 2 of 2 bottles. Repeat blood cultures NGTD 02/08/22 IR drain insertion, scant drainage Dr. Tolentino, orthopedics, consulted and appreciate recommendation- does not appear to have bony involvement. Switched antibiotics to Linezolid ID pharm on case 15 minutes Ortho is ok with drain being removed. Consulted with Dr. Walsh about removal. Suture was cut holding the pigtail to the skin. The internal string was unravelled. Drain was removed. Tip was intact, with string attached. (2) Bacteremia due to Gram-positive bacteria: Code(s): R78.81 - Bacteremia Status: Acute Assessment and Plan: 02/06/22 Blood cultures staphylococcus epidermis, and staphylococcus hominis in both bottles. . Repeat cultures NGTD Switch antibiotics to linezolid blood cultures grew out staphylococcus epidermis, staphylococcus hominis WBC currently 9.0 Continue to trend labs (3) Colitis: Code(s): K52.9 - Noninfective gastroenteritis and colitis, unspecified Status: Resolved Assessment and Plan: Incidental finding of acute sigmoid diverticulitis overlying chronic changes of possible IBD on admission CT. No history of inflammatory bowel disease and no complaints of abdominal pain at this time. last colonoscopy 03/04/[address] Aldridge with internal hemorrhoids and diverticulosis without perforation or abscess noted. General surgery consulted 02/07/22 CT abd/pelvis without evidence of colitis. Tolerating diet. (4) Hyperlipidemia: Qualifiers: Hyperlipidemia type: unspecified Qualified Code(s): E78.5 - Hyperlipidemia, unspecified Code(s): E78.5 - Hyperlipidemia, unspecified Status: Chronic Assessment and Plan: Continue statin (5) Hypertension: Code(s): I10 - Essential (primary) hypertension Status: Acute Assessment and Plan: Current BP is 146/90 Blood pressures stable Continue lisinopril Trend Blood pressures Adjust therapy as indicated (6) Tobacco abuse: Code(s): Z72.0 - Tobacco use Status: Chronic Assessment and Plan: Smoking cessation is encouraged. declines the need for a nicotine patch however ordered PRN nicotine gum ordered PRN Education given for 8 minutes (7) ENOCH (acute kidney injury): Code(s): N17.9 - Acute kidney failure, unspecified Status: Acute Assessment and Plan: BUN/Cr 17.80 Vancomycin discontinued probably related to antibiotics IV fluids started trend labs Urine studies Ur creatinine 38.1, Ur sodium 51, Ur urea 174, Ur Osmolality pending Calculate FENA 2.0 indicating ATN DS: Summary Hospital Course Hospital Course: Patient is a 56-year-old male with a past medical history of hypertension, DVT, anxiety who presented to the emergency room for evaluation of left upper leg pain. CT of the femur did find an abscess 2.9 cm with sigmoid colitis. Patient was started on IV antibiotics blood cultures were drawn and did grow Staphylococcus epidermidis and Staphylococcus hominis in both bottles. Wound culture grew Staph aureus. Patient was treated with vanc and Zosyn. Close monitoring of labs were done and did show acute kidney injury antibiotics were changed that time. Kidney function is correcting is currently 21/06.80. White blood cell
--- NOTE | 2022-02-11 11:31 | PM.PNORT ---
Progress Note: A&P Assessment and Plan (1) Abscess of muscle of thigh: Code(s): M60.059 - Infective myositis, unspecified thigh Status: Acute Plan Staph aureus isolated. Drain can be discontinued prior to discharge. Subjective Subjective Date/Time Seen: 02/11/22 11:31 Principal diagnosis: left thigh abscess Interval history: Continues to do well. Only has mild irritability at the drain insertion site with ambulation. Review of Systems Review of Systems: All systems reviewed & are unremarkable except as noted in HPI and below Exam Const: General: cooperative, alert and awake HENMT: Head: normal to inspection Ears: hearing grossly abnormal bilaterally Resp: Effort & Inspection: normal respiratory effort GI: Inspection: non-distended GI Palp: No abdominal tenderness Neuro: General: patient oriented x3 Extrem: Other: Exam of the left thigh reveals no swelling and virtually no tenderness. No erythema. Scant drainage from flushing. Psych: Mental Status: mental status grossly normal Objective Data Vital Signs Vital Signs: Vital Signs - 24 hr 02/10/22 14:00 02/10/22 20:17 02/10/22 20:00 Temperature 98.4 F 97.6 F Pulse Rate 87 79 Respiratory Rate 16 16 Blood Pressure 145/87 H 130/80 Pulse Oximetry 98 98 Oxygen Delivery Room Air 02/11/22 05:20 02/11/22 08:00 Temperature 97.6 F Pulse Rate 92 Respiratory Rate 14 Blood Pressure 146/90 H Pulse Oximetry 95 Oxygen Delivery Room Air Intake/Output Intake/Output: Intake & Output 02/08/22 02/09/22 02/10/22 02/11/22 23:59 23:59 23:59 23:59 Intake Total 1680 2804 2580 1080 Output Total 1975 1905 1550 800 Balance -905 599 2746 280 Meds/Results Medications: Active Medications Generic Name Dose Route Start Last Admin Trade Name Freq PRN Reason Stop Dose Admin Acetaminophen 1,000 mg 02/07/22 10:12 02/10/22 14:04 Acetaminophen 500 Mg Tablet PO 1,000 mg Q6H PRN Administration Headache Ascorbic Acid 500 mg 02/08/22 09:00 02/11/22 08:37 Ascorbic Acid 500 Mg Tablet PO 500 mg DAILY LAYA Administration Calcium Carbonate 200 mg 02/08/22 18:50 Calcium Carbonate (Tums) 500 Mg (200 Mg Elemental) PO Q6H PRN Indigestion Docusate Sodium 100 mg 02/11/22 11:00 Docusate Sodium 100 Mg Capsule PO Q12HR LAYA Ibuprofen 600 mg 02/07/22 10:09 02/10/22 15:21 Ibuprofen 600 Mg Tablet PO 600 mg Q8H PRN Administration Pain Linezolid 600 mg 02/10/22 21:00 02/11/22 08:36 Linezolid 600 Mg Tablet PO 02/22/22 23:59 600 mg Q12HR LAYA Administration Lisinopril 10 mg 02/07/22 09:00 02/11/22 08:37 Lisinopril 10 Mg Tablet PO 10 mg DAILY LAYA Administration Loratadine 10 mg 02/07/22 09:00 02/11/22 08:38 Loratadine 10 Mg Tablet PO 10 mg QAM LYAA Administration Nicotine 1 patch 02/09/22 10:16 Nicotine (*Pbkc) 21 Mg Patch TRANSDERM QAM PRN tobacco cessation Nicotine Polacrilex 4 mg 02/09/22 10:16 Nicotine (*Pbkc) 4 Mg Gum PO PRN PRN Nicotine Cravings Pantoprazole Sodium 40 mg 02/09/22 09:00 02/11/22 08:37 Pantoprazole 40 Mg Tablet PO 40 mg QAM LAYA Administration Polyethylene Glycol 17 gm 02/11/22 11:00 Polyethylene Glycol 3350 17 Gm Powd.Pack PO QAM LAYA Simvastatin 40 mg 02/07/22 21:00 02/10/22 20:23 Simvastatin 20 Mg Tablet PO 40 mg HS LAYA Administration Tizanidine HCl 2 mg 02/09/22 09:55 02/09/22 10:27 Tizanidine Hcl 2 Mg Tablet PO 2 mg TID PRN Administration Muscle Spasm Radiology Results: ITS Impressions Venous Doppler Study 02/06/22 12:17 IMPRESSION: 1. No deep venous thrombosis. Femur CT 02/06/22 14:49 IMPRESSION: 2.9 cm intramuscular abscess in the mid left vastus intermedius muscle. Acute distal sigmoid colitis overlying likely chronic changes of IBD. ADDENDUM: 02/09/221930 This examination was performed with contrast
[2022-02-11] MEDS: polyethylene glycoL 3350 17 GM POWD.PACK PO (12:15)
[2022-02-11] MEDS: TIZANIDINE HCL 2 MG TABLET PO (12:15)
[2022-02-11] MEDS: DOCUSATE SODIUM 100 MG CAPSULE PO (12:15)
[2022-02-13 16:20] LABS: Osmolality, Urine 197 mOsm/kg (50-1200)
== END 2022-02-11 14:26 | disposition home or self-care (01) | DRG 558 ==
LOC: ANHED 15:26 → ANH2MED 18:40
PROVIDERS: Nurse Practitioner Family; Physician Assistant; Admitting Provider Student in an Organized Health Care Education/Training Program; Emergency Provider Emergency Medicine; PCP Internal Medicine; Visit Provider Nurse Practitioner
DX: M60.052 Infective myositis, left thigh (principal); R78.81 Bacteremia; P35.0 Congenital rubella syndrome; N17.9 Acute kidney failure, unspecified; N14.1 Nephropathy induced by other drugs, medicaments and biological substances; T36.95XA Adverse effect of unspecified systemic antibiotic, initial encounter; E78.5 Hyperlipidemia, unspecified; I10 Essential (primary) hypertension; H90.3 Sensorineural hearing loss, bilateral; B95.7 Other staphylococcus as the cause of diseases classified elsewhere; F41.9 Anxiety disorder, unspecified; F17.210 Nicotine dependence, cigarettes, uncomplicated; F32.A Depression, unspecified; Z79.82 Long term (current) use of aspirin; Z86.718 Personal history of other venous thrombosis and embolism
CPT/HCPCS: 36415; 73701; 74018; 74176; 75989; 76775; 80048; 80053; 80202; 82570; 83605; 83735; 83935; 84300; 84540; 85025; 85610; 85730; 87040; 87070; 87075; 87077; 87186; 87205; 93971; 96366; 96367; 99285; A9270; C1729; G0378; J0696; J0743; J2543; J3370; J7050; J7120; Q9967

== ENCOUNTER 2022-04-21 09:18 | Inpatient (IN) | payer MEDICARE, BC, SELFPAY ==
[2022-04-21] VITALS (20 sets, daily range): BP systolic 99–123; BP diastolic 63–85; PULSE 97–108; RESP 16–18; TEMP 36.7–36.8; O2SAT 95–100; BMI 26.2
--- NOTE | ~2022-04-21 | CT_ITS ---
EXAMINATION: CT abdomen pelvis w con DATE: 04/25/2022 12:30 INDICATION: Sigmoid diverticulitis TECHNIQUE: Computed tomography (CT) of the abdomen and pelvis was performed with 100 mL Omnipaque-350 intravenous contrast. Automated exposure control and iterative reconstruction technique were employe d. The dose-length product was 399.64 mGy-cm. COMPARISON: 04/21/2022 FINDINGS: New small region of discoid atelectasis/scarring at the inferior lingula. Heart size is normal. No pe ricardial or pleural effusion. Minimal focal hepatic steatosis at the ligamentum teres. Gallbladder, spleen, pancreas, bilateral adrenal glands and left kidney are normal. Again seen is a subcentimeter low-attenuation lesion at the upper pole of the right kidney most likely renal cysts but too small to definitively characterize. Some ectasia of the infrarenal abdominal aorta measuring up to 3.1 cm max imal diameter. Partially decompressed bladder is unremarkable. Prostatomegaly. Small fat-containing d irect left inguinal hernia. Normal appendix. No bowel obstruction. Moderate diverticulosis with descending and sigmoid colon pred ominance. Wall thickening along short segment of the mid sigmoid colon and vicinity of a diverticulum with ill-defined margins and surrounding from trace joint consistent with perforated diverticulitis. There is approximately 3.4 x 2.6 cm collection of fluid along side the diverticulum but without evid ent organized-appearing peripheral wall. Increase in the amount of the actual normal gas tracking cep halad through the sigmoid mesentery and into the abdominal retroperitoneum, root of the small bowel m esentery and along side the esophagus into the inferior aspect of the posterior mediastinum. Negligib le free fluid along the mesentery in the pelvis. No free intraperitoneal gas. No pathologically enlar ged abdominal or pelvic lymphadenopathy. Mild lumbar spondylosis. IMPRESSION: 1. Perforated sigmoid diverticulitis with mild some increase in size of a now a loculated appearing 2 .9 x 3.4 x 2.6 cm fluid collection along side the periphery diverticulum but with significant increas e in the amount of retroperitoneal gas now tracking into the posterior mediastinum. Reviewed, dictated and finalized at location A. [employer] IMPRESSION: 1. Perforated sigmoid diverticulitis with mild some increase in size of a now a loculated appearing 2.9 x 3.4 x 2.6 cm fluid collection along side the periphe ry diverticulum but with significant increase in the amount of retroperitoneal gas now tracking into the posterior mediastinum.
--- NOTE | ~2022-04-21 | CT_ITS ---
EXAMINATION: CT abdomen pelvis w con DATE: 04/21/2022 12:39 INDICATION: Upper abdominal pain, nausea, bloody stools TECHNIQUE: Computed tomography (CT) of the abdomen and pelvis was performed with 100 CC Omnipaque 350 intravenous contrast. Automated exposure control and iterative reconstruction technique were employe d. Exam dose: 435.75 mGy-cm total exam DLP. COMPARISON: 02/21/2022 KUB 02/07/2022 CT abdomen pelvis without contrast material FINDINGS: The lung bases are clear. Heart size is normal. No pericardial or pleural effusion. The liver, gallbladder, bile ducts, spleen, pancreas and pancreatic duct as well as the adrenal gland s are unremarkable. Small right renal cyst. No suspicious renal mass lesions or urinary tract calculu s or hydroureteronephrosis. The urinary bladder is unremarkable. There is moderate prostate enlargeme nt and minimal calcification. There is atherosclerotic calcification of the abdominal aorta and mild fusiform infrarenal abdominal aortic dilatation, measuring up to approximately 2.9 cm diameter. No abdominal aortic dissection is e vident. No intraperitoneal or retroperitoneal or pelvic mass lesion or adenopathy or ascites. There is prominent thickening of the wall of the mid sigmoid colon with pericolic abscess cavity cont aining air and mild fluid, wrapping from the left lateral aspect of the sigmoid colon over the superi or aspect of the sigmoid colon, with gas collection extending up to the anterior aspect of the proxim al common iliac arteries. There is surrounding pericolic fat stranding consistent with adjacent infla mmation. There are numerous diverticula of the sigmoid and descending colon, splenic flexure. No bowel obstruc tion is noted. Normal appendix.. No suspicious osteolytic or osteoblastic lesions. IMPRESSION: Sigmoid diverticulitis with pericolic abscess cavity contains fluid and a prominent of f ree air, extending as high as the proximal aspect of the common iliac arteries Reviewed, dictated and finalized at [facility]. Reviewed, dictated and finalized at [facility]. H CASER IMPRESSION: Sigmoid diverticulitis with pericolic abscess cavity contains flui d and a prominent of free air, extending as high as the proximal aspect of the common iliac arteries
--- NOTE | ~2022-04-21 | XR_ITS ---
EXAMINATION: XR abdomen obstructive series DATE: 04/22/2022 06:00 INDICATION: Diverticulitis and adynamic ileus. TECHNIQUE: Upright and supine views of the abdomen on 3 radiographs were obtained. COMPARISON: CT abdomen and pelvis 03/21/2022 FINDINGS: There are no dilated loops of bowel. There is a small volume of stool in the colon. There a re phleboliths in the pelvis. No free intraperitoneal gas under the diaphragm. IMPRESSION: 1. Nonobstructive bowel gas pattern. Reviewed, dictated and finalized at location [facility]. 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
[2022-04-21 10:12] LABS: Basophils Percent Auto 0.3 % (0.2-1.2); Eosinophils Absolute Auto 0.1 K/mm3 (0-0.3); Hematocrit 44.9 % (42.0-52.0); Hemoglobin 14.8 g/dL (14.0-18.0); Immature Granulocyte Absolute 0.05 K/mm3 (0.00-0.031); Immature Granulocyte Percent A 0.4 % (0-0.5); Lymphocytes Absolute Auto 1.42 K/mm3 (0.9-3.2); Lymphocytes Percent Auto 11.8 % (18.3-44.2); Mean Corpuscular Hemoglobin 28.7 pg (26-34); Mean Corpuscular Volume 87.2 fl (80-100); Mean Platelet Volume 9.2 fl (7.4-10.4); Monocytes Absolute Auto 1.2 K/mm3 (0.1-0.6); Monocytes Percent Auto 9.9 % (2.6-8.5); Neutrophils Absolute Auto 9.2 K/mm3 (1.3-6.7); Neutrophils Percent Auto 76.6 % (45.5-73.1); Platelet Count Result 338 k/mm3 (150-375); Red Blood Count 5.15 M/mm3 (4.6-6.20); Red Cell Distribution Width 13.8 % (11.5-14.5)
[2022-04-21 10:22] LABS: INR 1.1; Prothrombin Time 14.2 Seconds (11.1-14.7)
[2022-04-21 10:23] LABS: Partial Thromboplastin Time 32.3 SECONDS (22.3-36.8)
[2022-04-21 10:31] LABS: Alanine Aminotransferase 49 U/L (6-50); Albumin Level 4.4 g/dL (3.5-5.1); Alkaline Phosphatase 155 U/L (38-126); Anion Gap 13 mmol/L (8-16); Aspartate Amino Transferase 35 U/L (17-59); Bilirubin,Total 0.5 mg/dL (0.2-1.3); Blood Urea Nitrogen 14 mg/dL (9-20); Calcium 9.2 mg/dL (8.4-10.2); Carbon Dioxide 23 mmol/L (22-30); Chloride 99 mmol/L (98-107); Estimated CRCL calculation 67 ml/min; Estimated Glomerular Filt Rate > 60; Glucose 148 mg/dL (65-110); Potassium 4.5 mmol/L (3.4-5.0); Sodium 135 mmol/L (137-145)
--- NOTE | 2022-04-21 10:51 | ED.GIBLEED ---
HPI - GI Bleed General Chief complaint: GI Bleed <KRYSTLE Hook Last Filed: 04/21/22 14:26> Stated complaint: abd pain, blood in stool <KRYSTLE Hook Last Filed: 04/21/22 14:26> Time Seen by Provider: 04/21/22 10:17 <Ruth Jacobsen PA-C - Last Filed: 04/21/22 14:26> Source: patient <KRYSTLE Hook Last Filed: 04/21/22 14:26> Mode of arrival: ambulatory <KRYSTLE Hook Last Filed: 04/21/22 14:26> Limitations: other (patient is hearing impaired, his sister is interpreting which he prefers) <KRYSTLE Hook Last Filed: 04/21/22 14:26> History of Present Illness HPI Narrative: This is a 56-year-old male that presents to the emergency department for lower abdominal pain. Ongoing over the last couple of days. Associated with painful bowel movements. Reports he is seeing bright red blood in the toilet and with wiping. He has history of hemorrhoids. His GI doctor is Dr. Aldridge, last colonoscopy 2020 which showed hemorrhoids and diverticula. He takes a baby aspirin daily. No other blood thinners. Denies fever or vomiting. <Ruth Jacobsen PA-C - Last Filed: 04/21/22 14:26> Related Data Home medications: Home Medications Medication Instructions Recorded Confirmed acetaminophen 500 mg tablet 500 mg PO Q6H PRN Headache 02/25/20 02/06/22 lisinopril 10 mg tablet 10 mg PO DAILY 02/25/20 02/06/22 simvastatin 40 mg tablet 40 mg PO HS 02/25/20 02/06/22 aspirin 81 mg tablet 81 mg PO DAILY 02/06/22 02/06/22 cetirizine 10 mg capsule (Zyrtec) 10 mg PO DAILY 02/06/22 02/06/22 vitamin A-vitamin C-vit E-min 1 tablet PO DAILY 02/06/22 02/06/22 tablet <KRYSTLE Hook Last Filed: 04/21/22 14:26> Allergies/Adverse reactions: Allergies Allergy/AdvReac Type Severity Reaction Status Date / Time Sulfa (Sulfonamide Allergy Mild Rash Verified 04/21/22 09:52 Antibiotics) vancomycin AdvReac Other Verified 04/21/22 09:53 <Ruth Jacobsen PA-C - Last Filed: 04/21/22 14:26> Review of Systems Review of Systems: CONSTITUTIONAL: Denies fever CARDIOVASCULAR: Denies chest pain GASTROINTESTINAL: Reports abdominal pain, nausea. Denies diarrhea. 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 History of repair of congenital anomaly of heart <Ruth Jacobsen PA-C - Last Filed: 04/21/22 14:26> Family History Family History: Family History Other Family history non-contributory <Ruth Jacobsen PA-C - Last Filed: 04/21/22 14:26> Social History Social History: Social History Social History: Surrogate medical decision maker: Tania Sousa, sister. Code status: Full code. Smoking packs per day: 1 Smoking cigarettes per day: 20.0 Years smoked: 35 Smoking pack-years: 35.00 Smoking status: Current every day smoker Tobacco type: cigarettes Alcohol intake: current Drinks per week: 1 Substance use: current Substance use type: marijuana Last use: 02/05/22 Additional living arrangements comments: The patient rose
[2022-04-21 14:26] LABS: Hemoglobin A1C 5.8 % (<5.7)
[2022-04-21] MEDS: SODIUM CHLORIDE 0.9% IV 1,000 ML 999 ML IV CONT (14:34)
[2022-04-21 14:49] LABS: Lactic Acid Reflex 1.5 mmol/L (0.7-2.0)
--- NOTE | 2022-04-21 14:58 | PM.IMHP ---
H&P: HPI History of Present Illness Date/Time: 04/21/22 14:58 Chief Complaint: Abdominal pain and blood in his stool. Narrative: This is a 56-year-old deaf patient who came to the emergency room with complaints of lower abdominal pain. This is been ongoing over the last couple days. The patient does have a history of diverticulosis. The patient has painful bowel movements. He reportedly stated that he had bright red blood in the toilet and with wiping. He has a history of hemorrhoids. His GI doctor is Dr. Suarez. His last colonoscopy was 2019 which showed some hemorrhoids and diverticulosis. The patient takes a daily low dose aspirin. He denied any nausea vomiting or fever. His white count was noted to be 12.0. Patient was having diffuse abdominal pain. His last hemoglobin A1c was 5.8 today. Lactic was normal. He was negative for influenza A/B and COVID. Abdominal pelvis CT was read as the following.Sigmoid diverticulitis with pericolic abscess cavity contains fluid and a prominent of free air, extending as high as the proximal aspect of the common iliac arteries. Surgery has been consulted. The patient was started on Zosyn, Tylenol, and IV fluids. The patient is being admitted to observation status on the date of service of 04/21/2022. Review of Systems Review of Systems: See HPI All systems reviewed & are unremarkable except as noted in HPI and below Constitutional: Constitutional: Reports as per HPI and Reports no additional constitutional complaints Eyes: Eyes: Reports as per HPI and Reports no additional eye complaints ENT: Reports system reviewed and no additional complaints, except as documented Cardiovascular: Cardiovascular: Reports no additional cardiovascular complaints Respiratory: Respiratory: Reports no additional respiratory complaints and Reports no additional respiratory complaints Gastrointestinal: Gastrointestinal: Reports as per HPI and Reports no additional gastrointestinal complaints Musculoskeletal: Musculoskeletal: Reports no additional musculoskeletal complaints Integumentary/Breasts: Skin/Breast: Reports system reviewed and no additional complaints, except as docu and Reports as per HPI Neurologic: Reports system reviewed and no additional complaints, except as documented, Reports as per HPI and Reports Normal hearing present Psychiatric: Psychiatric: Reports no additional psychiatric complaints and Reports as per HPI Endocrine: Endocrine: Reports no additional endocrine complaints Hematologic/Lymphatic: Hematologic/Lymphatic: Reports no additional hematologic/lymphatic complaints Allergic/Immunologic: Allergic/Immunologic: Reports no additional allergic/immunologic complaints [facility] Past Medical History Medical History (Updated 04/21/22 @ 23:04 by Ernestine Azevedo NP) Abscess of muscle of thigh February 06, 2022 Abscess of sigmoid colon due to diverticulitis Anxiety Bacteremia due to Gram-positive bacteria 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 History of repair of congenital anomaly of heart Family History Family History (Updated 04/21/22 @ 22:56 by Ernestine Azevedo NP) Mother Acute rheumatoid arthritis Sibling Cancer Father Carcinoma of colon Social History Social History (Updated 04/21/22 @ 22:58 by Ernestine Azevedo NP) Social History: he has no children and is single . He smokes marijuana and smokes a pack a cigarettes a day. The patient is disabled. He lives with his bro
[2022-04-21 15:10] LABS: Influenza A QL RT-PCR Negative (Negative); Influenza B QL RT-PCR Negative (Negative); SARS-CoV-2 RNA PCR Negative
--- NOTE | 2022-04-21 16:50 | PM.CNGS ---
Assessment and Plan Assessment and plan (1) Abscess of sigmoid colon due to diverticulitis: Code(s): K57.20 - Diverticulitis of large intestine with perforation and abscess without bleeding Status: Inactive Assessment and Plan: I have discussed this with the patient's sister and the patient. I reviewed his CT scan with Dr. De Guzman in Radiology. There is no free intraperitoneal air other than directly around the inflamed sigmoid colon. There is not a well-formed abscess with fluid in it. Therefore, he is not a good candidate at the moment for CT-guided drainage. Since his infection seems to be limited to the sigmoid area will admit, place on bowel rest other than sips with meds and ice chips and ontinue IV antibiotics. Depending on his progress will may we may think about repeating a CT scan of the abdomen and pelvis on Monday to see if this now known inflammation has progressed or receded. (2) Hemorrhoid: Qualifiers: Hemorrhoid type: unspecified Qualified Code(s): K64.9 - Unspecified hemorrhoids Code(s): K64.9 - Unspecified hemorrhoids Status: Acute Assessment and Plan: Patient apparently was having some bleeding from this. Will monitor. Will order tucks pads and Anusol suppositories or cream for it. (3) Tobacco abuse: Code(s): Z72.0 - Tobacco use Status: Chronic Assessment and Plan: Encouraged patient to stop smoking (4) Hypertension: Code(s): I10 - Essential (primary) hypertension Status: Acute Assessment and Plan: as per hospitalist (5) Hyperlipidemia: Qualifiers: Hyperlipidemia type: unspecified Qualified Code(s): E78.5 - Hyperlipidemia, unspecified Code(s): E78.5 - Hyperlipidemia, unspecified Status: Chronic Assessment and Plan: Will probably hold meds until able to tolerate a diet. (6) History of deep venous thrombosis (DVT) of distal vein of left lower extremity: Code(s): Z86.718 - Personal history of other venous thrombosis and embolism Status: Inactive Assessment and Plan: Okay to proceed with both mechanical and pharmacologic prophylaxis. (7) Deaf: Code(s): H91.90 - Unspecified hearing loss, unspecified ear Status: Acute Assessment and Plan: We will plan to use sign language interpretation to help communicate with patient. History of Present Illness Consult details Consult date: 04/21/22 Reason for consult: abdominal pain Requesting physician: Alexis Maldonado MD Narrative: This is a 56-year-old white male patient who is deaf and came to the [place] emergency room with complaints of lower abdominal pain and bleeding per rectum.? He has a known history of hypertension, smoking, and GERD. This is been ongoing over the last couple days.? The patient does have a history of diverticulosis and hemorrhoids noted on colonoscopy in 2019.? The patient has painful some bowel movements.? And per sister who knows sign language had 1 small bowel movement this morning. He reportedly stated that he had bright red blood in the toilet and with wiping. This also was new within the last week. ? His GI doctor is Dr. Aldridge.? His last colonoscopy was 2019 which showed some hemorrhoids and diverticulosis.? The patient takes a daily low dose aspirin.? He denied any nausea vomiting or fever.? His white count was noted to be 12.0?today here in the ED. Patient was having diffuse abdominal pain.? His last hemoglobin A1c was 5.8 today.? Lactic acid was normal.? He was negative for influenza A/B and COVID.? Abdominal pelvis CT was read as the following.Sigmoid diverticulitis with pericolic abscess cavity contains fluid and a prominent of free air, extending as high as the proximal aspect of the common iliac arteries.? I then went to the ED saw the patient after reviewing his CT scan of the abdomen pelvis with Dr. De Guzman at [facility]. The patient does not have true free air.
[2022-04-21] MEDS: MORPHINE SULFATE (*CRX) 2 MG/ML INJ IV PUSH ×2 (17:42→22:19)
--- NOTE | 2022-04-21 17:54 | ADMGEN ---
This patient, James Ku, was admitted to [facility] Surg Room 322-01 at 1705. Patient/family oriented to hospital policies and general routines including ID bracelet, bed and alarms, visiting hours, pain management, procedures, bathroom and other care routines, personal items, smoking policy, room service/diet, and visiting hours. Information on how to activate the Rapid Response Team has been discussed. Patient/Family are encouraged to report perceived risks to care and to ask questions if they do not understand what they are told or what they should do.
[2022-04-21] MEDS: NICOTINE (*PBKC) 21 MG PATCH 1 PATCH TRANSDERM (19:09)
[2022-04-22] MEDS: FAMOTIDINE 20 MG TABLET PO ×3 (00:16→21:26)
[2022-04-22] MEDS: SODIUM CHLORIDE 0.9% IV 1,000 ML 100 ML IV CONT ×2 (00:16→14:23)
[2022-04-22] MEDS: MORPHINE SULFATE (*CRX) 2 MG/ML INJ IV PUSH ×4 (04:53→21:35)
[2022-04-22 07:50] LABS: Basophils Absolute Auto 0.1 K/mm3 (0.0-0.1); Basophils Percent Auto 0.3 % (0.2-1.2); Eosinophils Percent Auto 0.1 % (0-4.4); Hematocrit 40.5 % (42.0-52.0); Hemoglobin 13.7 g/dL (14.0-18.0); Immature Granulocyte Absolute 0.08 K/mm3 (0.00-0.031); Immature Granulocyte Percent A 0.4 % (0-0.5); Lymphocytes Absolute Auto 2.06 K/mm3 (0.9-3.2); Lymphocytes Percent Auto 11.5 % (18.3-44.2); Mean Corpuscular HGB Conc 33.8 g/dl (32-36); Mean Corpuscular Hemoglobin 28.8 pg (26-34); Mean Corpuscular Volume 85.1 fl (80-100); Mean Platelet Volume 9.8 fl (7.4-10.4); Monocytes Absolute Auto 1.8 K/mm3 (0.1-0.6); Monocytes Percent Auto 10.2 % (2.6-8.5); Neutrophils Absolute Auto 13.9 K/mm3 (1.3-6.7); Neutrophils Percent Auto 77.5 % (45.5-73.1); Platelet Count Result 336 k/mm3 (150-375); Red Blood Count 4.76 M/mm3 (4.6-6.20); Red Cell Distribution Width 13.8 % (11.5-14.5); White Blood Count 17.9 K/mm3 (4.5-10.0)
[2022-04-22 08:01] LABS: Anion Gap 17 mmol/L (8-16); Blood Urea Nitrogen 9 mg/dL (9-20); Calcium 8.7 mg/dL (8.4-10.2); Carbon Dioxide 22 mmol/L (22-30); Chloride 96 mmol/L (98-107); Estimated CRCL calculation 67 ml/min; Estimated Glomerular Filt Rate > 60; Glucose 102 mg/dL (65-110); Magnesium 1.9 mg/dL (1.6-2.3); Potassium 3.9 mmol/L (3.4-5.0); Sodium 135 mmol/L (137-145)
[2022-04-22 08:38] VITALS: BP 108/80
--- NOTE | 2022-04-22 09:23 | ECG_ITS ---
Measurements Intervals [employer] Rate: 93 P: 63 WV: 158 QRS: 39 QRSD: 102 T: 40 QT: 332 QTc: 413 Interpretive Statements SINUS RHYTHM POSSIBLE LEFT ATRIAL ENLARGEMENT BORDERLINE ECG NO PREVIOUS ECG AVAILABLE FOR COMPARISON Electronically Signed On 04-22-2022 12:26:24 [employer]CAFFOLD BUILDER by Albert Wells D.O.
--- NOTE | 2022-04-22 09:53 | PM.PNGS ---
Progress Note: A&P Assessment and Plan (1) Abscess of sigmoid colon due to diverticulitis: Code(s): K57.20 - Diverticulitis of large intestine with perforation and abscess without bleeding Status: Acute Assessment and Plan: I have discussed this with the patient's sister and the patient.? I reviewed his CT scan with Dr. De Guzman in Radiology.? There is no free intraperitoneal air other than directly around the inflamed sigmoid colon.? There is not a well-formed abscess with fluid in it.? Therefore, he is not a good candidate at the moment for CT-guided drainage.? Since his infection seems to be limited to the sigmoid area will admit, place on bowel rest other than sips with meds and ice chips and ontinue IV antibiotics.? Depending on his progress will may we may think about repeating a CT scan of the abdomen and pelvis on Monday to see if this now known inflammation has progressed or receded. Increased to clear liquids today. Continue IV fluids and antibiotics until we know how he does. (2) Tobacco abuse: Code(s): Z72.0 - Tobacco use Status: Chronic Assessment and Plan: Has nicotine patch. As per hospitalist Encouraged cessation. (3) Hypertension: Code(s): I10 - Essential (primary) hypertension Status: Acute Assessment and Plan: as per hospitalist (4) Hyperlipidemia: Qualifiers: Hyperlipidemia type: unspecified Qualified Code(s): E78.5 - Hyperlipidemia, unspecified Code(s): E78.5 - Hyperlipidemia, unspecified Status: Chronic Assessment and Plan: Hold meds for now but restart went home going. (5) Hemorrhoid: Qualifiers: Hemorrhoid type: unspecified Qualified Code(s): K64.9 - Unspecified hemorrhoids Code(s): K64.9 - Unspecified hemorrhoids Status: Acute Assessment and Plan: No complaints about this today. Has not had a bowel movement since entering the hospital low. Discussed using Anusol suppository with the nurse. If this causes too much pain he can refuse it. Will also use tucks pads. Subjective Subjective Date/Time Seen: 04/22/22 08:53 Post Op day: PAD #1 Patient reports: no new complaints, feels better, still having pain ( Both sides of lower abdomen.) and flatus Interval history: Patient's sister was present and he prefers her as his tower erector helper for sign language. In discussing his situation he still is having 8/10 pain in his lower abdomen. IV medication is helping but wears off fairly quickly. Nurse reports that he is complaining of low back pain and she will talk with the hospitalist about possible lidocaine patch which is okay with me. Will also increase his diet to clear liquids as he is passing flatus according to our communication with patient's sister using sign language. He is not nauseated. Review of Systems Review of Systems: All systems reviewed & are unremarkable except as noted in HPI and below Constitutional: Constitutional: Reports as per HPI, Denies chills and Denies fever(s) Cardiovascular: Cardiovascular: Denies chest pain and Denies dyspnea Respiratory: Respiratory: Reports no additional respiratory complaints and Denies dyspnea Gastrointestinal: Gastrointestinal: Reports as per HPI Musculoskeletal: Musculoskeletal: Reports no additional musculoskeletal complaints Neurologic: Denies memory loss Psychiatric: Psychiatric: Denies memory loss Exam Const: General: cooperative, alert and awake Orientation/consciousness: patient oriented x3 HENMT: Head: normal to inspection Mouth: Yes moist mucous membranes Eyes: Sclera: sclerae normal Pupils: Equal, round and reactive pupils present Neck: Neck: normal visual inspection Chest: Chest palpation & inspection: normal inspection of the chest Resp: Effort & Inspection: normal respiratory effort Auscultation: clear to auscultation bilaterally Cardio: Rate: regular rate GI: Inspection: normal to inspec
[2022-04-22] MEDS: NICOTINE (*PBKC) 21 MG PATCH 1 PATCH TRANSDERM (10:36)
--- NOTE | 2022-04-22 11:51 | PM.IMPN ---
Progress Note: A&P Assessment and Plan (1) Diverticulitis of intestine with abscess: Qualifiers: Diverticulitis bleeding: with bleeding Diverticulitis site: large intestine Qualified Code(s): K57.21 - Diverticulitis of large intestine with perforation and abscess with bleeding Code(s): K57.80 - Diverticulitis of intestine, part unspecified, with perforation and abscess without bleeding Status: Acute Assessment and Plan: -appreciate surgery input -the patient remains on Zosyn. -blood cultures are pending -continue with IV fluids. -analgesics (2) Hemorrhoid: Qualifiers: Hemorrhoid type: unspecified Qualified Code(s): K64.9 - Unspecified hemorrhoids Code(s): K64.9 - Unspecified hemorrhoids Status: Acute Assessment and Plan: -tucks pad has been ordered for the patient. -bisacodyl suppository has been ordered for the patient -hydrocortisone has been ordered as well. (3) Tobacco abuse: Code(s): Z72.0 - Tobacco use Status: Chronic Assessment and Plan: -the patient has agreed to nicotine patch. -we briefly discussed smoking cessation less than 5 minutes. (4) Hypertension: Code(s): I10 - Essential (primary) hypertension Status: Acute Assessment and Plan: The patient is NPO and his blood pressure is soft. -p.r.n. hydralazine. (5) Hyperlipidemia: Qualifiers: Hyperlipidemia type: unspecified Qualified Code(s): E78.5 - Hyperlipidemia, unspecified Code(s): E78.5 - Hyperlipidemia, unspecified Status: Chronic Assessment and Plan: Patient is NPO at this time. Simvastatin is on hold. (6) Deaf: Code(s): H91.90 - Unspecified hearing loss, unspecified ear Status: Acute Assessment and Plan: -the patient communicating through the interpreter and translator and writing notes. Subjective Date/time seen: 04/22/22 11:51 Feeling better no complaints Exam Const: General: cooperative, comfortable, no acute distress, well developed, alert, awake, Physically active, ill appearing, average body habitus and well nourished Nutritional Appearance: average body habitus and well nourished Orientation/consciousness: oriented to person, oriented to place, oriented to time and patient oriented x3 Other: The patient is deaf and communicates through his sister and the interpreter and translator HENMT: Head: normal to inspection, No palpable skull fracture present, normocephalic and atraumatic Ears: external ears normal (The patient is deaf bilaterally) Face/Nose/Sinus: Normal external nose present and Normal nares present Mouth: Yes dry mucous membranes Eyes: General: appearance normal, both eyes and all related structures Alignment and Position: alignment normal Eyelids: eyelids normal Pupils: Equal, round and reactive pupils present Neck: Neck: normal visual inspection, full ROM, no lymphadenopathy, trachea midline and supple Chest: Chest palpation & inspection: normal inspection of the chest Resp: Effort & Inspection: normal respiratory effort Auscultation: wheezes lower bilaterally Cardio: Palpation: normal PMI Rate: tachycardic Rhythm: regular rhythm Heart sounds: S1 normal heart sound present and S2 normal heart sound present Peripheral pulses: Peripheral pulses 2+ throughout GI: Inspection: normal to inspection Auscultation: normal bowel sounds Rectal Exam: deferred Other: Tenderness to lower and right lower and mid abdomen around the umbilical area. Back/Spine/Pelvis: Cervical Spine: cervical ROM normal Skin: General skin exam: normal color Lesions: no lesions Rashes: no rashes Trauma: no lacerations or abrasions Wounds: no wounds Hair: general thinning Nails: normal Neuro: General: oriented to person, oriented to place, oriented to time and patient oriented x3 Cranial nerves: Yes Equal, round and reactive pupils present and Yes Normal hearing present Cognition (Neuro): normal cognition Spee
[2022-04-22] MEDS: HYDROcodone/acetaminophen (*CRX) 7.5-325 MG TABLET 1 TAB PO ×2 (11:56→17:27)
[2022-04-22 14:00] VITALS: BP 117/78; PULSE 88; RESP 18; TEMP 37; O2SAT 97
[2022-04-22 21:38] VITALS: BP 126/74; PULSE 92; RESP 20; TEMP 36.7; O2SAT 94
[2022-04-23] MEDS: HYDROcodone/acetaminophen (*CRX) 7.5-325 MG TABLET 1 TAB PO ×4 (00:58→19:56)
[2022-04-23 05:50] VITALS: BP 124/71; PULSE 99; RESP 20; TEMP 36.4; O2SAT 94
[2022-04-23] MEDS: SODIUM CHLORIDE 0.9% IV 1,000 ML 100 ML IV CONT ×2 (06:25→17:19)
[2022-04-23] MEDS: SIMETHICONE 80 MG TAB.CHEW PO ×2 (06:26→12:02)
[2022-04-23 07:27] LABS: Basophils Absolute Auto 0.1 K/mm3 (0.0-0.1); Basophils Percent Auto 0.3 % (0.2-1.2); Eosinophils Absolute Auto 0.1 K/mm3 (0-0.3); Eosinophils Percent Auto 0.6 % (0-4.4); Hematocrit 40.8 % (42.0-52.0); Hemoglobin 13.4 g/dL (14.0-18.0); Immature Granulocyte Percent A 0.6 % (0-0.5); Lymphocytes Percent Auto 12.9 % (18.3-44.2); Mean Corpuscular HGB Conc 32.8 g/dl (32-36); Mean Corpuscular Hemoglobin 28.9 pg (26-34); Mean Corpuscular Volume 87.9 fl (80-100); Mean Platelet Volume 9.2 fl (7.4-10.4); Monocytes Absolute Auto 1.7 K/mm3 (0.1-0.6); Monocytes Percent Auto 11.1 % (2.6-8.5); Neutrophils Absolute Auto 11.5 K/mm3 (1.3-6.7); Neutrophils Percent Auto 74.5 % (45.5-73.1); Platelet Count Result 335 k/mm3 (150-375); Red Blood Count 4.64 M/mm3 (4.6-6.20); White Blood Count 15.5 K/mm3 (4.5-10.0)
[2022-04-23] MEDS: NICOTINE (*PBKC) 21 MG PATCH 1 PATCH TRANSDERM (09:17)
[2022-04-23] MEDS: FAMOTIDINE 20 MG TABLET PO ×2 (09:17→20:00)
--- NOTE | 2022-04-23 11:26 | PM.IMPN ---
Progress Note: A&P Assessment and Plan (1) Diverticulitis of intestine with abscess: Qualifiers: Diverticulitis bleeding: with bleeding Diverticulitis site: large intestine Qualified Code(s): K57.21 - Diverticulitis of large intestine with perforation and abscess with bleeding Code(s): K57.80 - Diverticulitis of intestine, part unspecified, with perforation and abscess without bleeding Status: Acute Assessment and Plan: -appreciate surgery input -the patient remains on Zosyn. -blood cultures are pending -continue with IV fluids. -analgesics (2) Hemorrhoid: Qualifiers: Hemorrhoid type: unspecified Qualified Code(s): K64.9 - Unspecified hemorrhoids Code(s): K64.9 - Unspecified hemorrhoids Status: Acute Assessment and Plan: -tucks pad has been ordered for the patient. -bisacodyl suppository has been ordered for the patient -hydrocortisone has been ordered as well. (3) Tobacco abuse: Code(s): Z72.0 - Tobacco use Status: Chronic Assessment and Plan: -the patient has agreed to nicotine patch. -we briefly discussed smoking cessation less than 5 minutes. (4) Hypertension: Code(s): I10 - Essential (primary) hypertension Status: Acute Assessment and Plan: The patient is NPO and his blood pressure is soft. -p.r.n. hydralazine. (5) Hyperlipidemia: Qualifiers: Hyperlipidemia type: unspecified Qualified Code(s): E78.5 - Hyperlipidemia, unspecified Code(s): E78.5 - Hyperlipidemia, unspecified Status: Chronic Assessment and Plan: Patient is NPO at this time. Simvastatin is on hold. (6) Deaf: Code(s): H91.90 - Unspecified hearing loss, unspecified ear Status: Acute Assessment and Plan: -the patient communicating through the carpenter and writing notes. Subjective Date/time seen: 04/23/22 11:26 no new complaints, Exam Const: General: cooperative, comfortable, no acute distress, well developed, alert, awake, Physically active, ill appearing, average body habitus and well nourished Nutritional Appearance: average body habitus and well nourished Orientation/consciousness: oriented to person, oriented to place, oriented to time and patient oriented x3 Other: The patient is deaf and communicates through his sister and the carpenter HENMT: Head: normal to inspection, No palpable skull fracture present, normocephalic and atraumatic Ears: external ears normal (The patient is deaf bilaterally) Face/Nose/Sinus: Normal external nose present and Normal nares present Mouth: Yes dry mucous membranes Eyes: General: appearance normal, both eyes and all related structures Alignment and Position: alignment normal Eyelids: eyelids normal Pupils: Equal, round and reactive pupils present Neck: Neck: normal visual inspection, full ROM, no lymphadenopathy, trachea midline and supple Chest: Chest palpation & inspection: normal inspection of the chest Resp: Effort & Inspection: normal respiratory effort Auscultation: wheezes lower bilaterally Cardio: Palpation: normal PMI Rate: tachycardic Rhythm: regular rhythm Heart sounds: S1 normal heart sound present and S2 normal heart sound present Peripheral pulses: Peripheral pulses 2+ throughout GI: Inspection: normal to inspection Auscultation: normal bowel sounds Rectal Exam: deferred Other: Tenderness to lower and right lower and mid abdomen around the umbilical area. Back/Spine/Pelvis: Cervical Spine: cervical ROM normal Skin: General skin exam: normal color Lesions: no lesions Rashes: no rashes Trauma: no lacerations or abrasions Wounds: no wounds Hair: general thinning Nails: normal Neuro: General: oriented to person, oriented to place, oriented to time and patient oriented x3 Cranial nerves: Yes Equal, round and reactive pupils present and Yes Normal hearing present Cognition (Neuro): normal cognition Speech: normal
--- NOTE | 2022-04-23 12:14 | PM.PNGS ---
Progress Note: A&P Assessment and Plan (1) Abscess of sigmoid colon due to diverticulitis: Code(s): K57.20 - Diverticulitis of large intestine with perforation and abscess without bleeding Status: Acute Assessment and Plan: Continue clear liquid diet today. White blood count still elevated, but coming down slightly. Continue Zosyn. (2) Tobacco abuse: Code(s): Z72.0 - Tobacco use Status: Chronic (3) Hypertension: Code(s): I10 - Essential (primary) hypertension Status: Acute (4) Deaf: Code(s): H91.90 - Unspecified hearing loss, unspecified ear Status: Acute Subjective Subjective Date/Time Seen: 04/23/22 12:14 Interval history: Patient is still complaining pain at a 6 or 7. No fevers. No nausea or vomiting. Exam GI: Inspection: non-distended GI Palp: Yes Soft to palpation, Yes Tenderness to palpation present (GI) (LLQ), No Guarding due to palpation present (GI) and No Rebound tenderness present Auscultation: normal bowel sounds Objective Data Vital Signs Vital Signs: Vital Signs - 24 hr 04/22/22 14:00 04/22/22 21:38 04/23/22 05:50 Temperature 37.0 C 36.7 C 36.4 C L Pulse Rate 88 92 99 Respiratory Rate 18 20 20 Blood Pressure 117/78 126/74 124/71 Pulse Oximetry 97 94 94 Intake/Output Intake/Output: Intake & Output 04/20/22 04/21/22 04/22/22 04/23/22 23:59 23:59 23:59 23:59 Intake Total 1200 2830 1740 Output Total 600 1600 Balance 1200 2230 140 Meds/Results Medications: Active Medications Generic Name Dose Route Start Last Admin Trade Name Freq PRN Reason Stop Dose Admin Hydrocodone Bitart/Acetaminophen 1 tab 04/22/22 08:30 Hydrocodone/Acetaminophen (*Crx) 5-325 Mg Tablet PO Q6H PRN Pain Rated 4-6 Hydrocodone Bitart/Acetaminophen 1 tab 04/22/22 08:31 04/23/22 06:28 Hydrocodone/Acetaminophen (*Crx) 7.5-325 Mg Tablet PO 1 tab Q6H PRN Administration Pain Rated 7-10 Bisacodyl 10 mg 04/21/22 16:43 Bisacodyl 10 Mg Suppository RECTAL QAM PRN Constipation Famotidine 20 mg 04/21/22 21:00 04/23/22 09:17 Famotidine 20 Mg Tablet PO 20 mg Q12HR LAYA Administration Hydralazine HCl 10 mg 04/21/22 22:54 Hydralazine Hcl 20 Mg/Ml Vial IV PUSH Q8H PRN Blood Pressure - High Hydrocortisone Acetate 25 mg 04/21/22 21:00 Hydrocortisone Acetate 25 Mg Suppository RECTAL Q12H PRN ITCHING/DISCOMFORT Piperacillin/Tazobactam/Dextrose 3.375 gm in 50 mls @ 100 mls/hr 04/21/22 19:00 04/23/22 12:02 Zosyn 3.375 Gm/D5w 50ml Pm IVPB 100 mls/hr Q6HR LAYA Administration Sodium Chloride 1,000 mls @ 100 mls/hr 04/21/22 23:05 04/23/22 09:26 Normal Saline Iv IV CONT Not Given .Q10H LAYA Morphine Sulfate 2 mg 04/21/22 16:43 04/22/22 21:35 Morphine Sulfate (*Crx) 2 Mg/Ml Inj IV PUSH 2 mg Q3H PRN Administration Pain Rated 4-6 Nicotine 1 patch 04/21/22 16:35 04/23/22 09:17 Nicotine (*Pbkc) 21 Mg Patch TRANSDERM 1 patch QAM LAYA Administration Simethicone 80 mg 04/23/22 09:00 04/23/22 12:02 Simethicone 80 Mg Tab.Chew PO 80 mg QID LAYA Administration Witch Dominga 1 pad 04/21/22 17:00 Witch Dominga 40 Pads TOPICAL PRN PRN Perineal Discomfort Radiology Results: ITS Impressions Abdomen/Pelvis CT 04/21/22 12:52 IMPRESSION: Sigmoid diverticulitis with pericolic abscess cavity contains fluid and a prominent of free air, extending as high as the proximal aspect of the common iliac arteries Abdomen X-Ray 04/22/22 06:53 IMPRESSION: 1. Nonobstructive bowel gas pattern. Labs Labs: Laboratory Results - last 24 hr 04/23/22 07:02 WBC 15.5 H RBC 4.64 Hgb 13.4 L Hct 40.8 L MCV 87.9 MCH 28.9 MCHC 32.8 RDW 14.0 Plt Count 335 MPV 9.2 Immature Gran % (Auto) 0.6 H Neut % (Auto) 74.5 H Lymph % (Auto) 12.9 L [place] % (Auto) 11.1 H Eos % (Auto) 0.6 Baso % (Auto
[2022-04-23 14:00] VITALS: BP 127/78; PULSE 97; RESP 16; TEMP 36.6; O2SAT 99
[2022-04-23] MEDS: MORPHINE SULFATE (*CRX) 2 MG/ML INJ IV PUSH ×2 (15:09→23:37)
[2022-04-23 22:00] VITALS: BP 115/77; PULSE 96; RESP 18; TEMP 36.6; O2SAT 97
[2022-04-24] MEDS: SODIUM CHLORIDE 0.9% IV 1,000 ML 100 ML IV CONT (03:28)
[2022-04-24] MEDS: HYDROcodone/acetaminophen (*CRX) 7.5-325 MG TABLET 1 TAB PO ×3 (03:31→15:42)
[2022-04-24 05:48] LABS: Basophils Absolute Auto 0.1 K/mm3 (0.0-0.1); Basophils Percent Auto 0.3 % (0.2-1.2); Eosinophils Absolute Auto 0.1 K/mm3 (0-0.3); Eosinophils Percent Auto 0.5 % (0-4.4); Hematocrit 40.1 % (42.0-52.0); Hemoglobin 13.1 g/dL (14.0-18.0); Immature Granulocyte Absolute 0.11 K/mm3 (0.00-0.031); Immature Granulocyte Percent A 0.7 % (0-0.5); Lymphocytes Absolute Auto 1.79 K/mm3 (0.9-3.2); Mean Corpuscular HGB Conc 32.7 g/dl (32-36); Mean Corpuscular Hemoglobin 28.5 pg (26-34); Mean Corpuscular Volume 87.4 fl (80-100); Mean Platelet Volume 9.1 fl (7.4-10.4); Monocytes Absolute Auto 1.5 K/mm3 (0.1-0.6); Monocytes Percent Auto 9.7 % (2.6-8.5); Neutrophils Absolute Auto 11.5 K/mm3 (1.3-6.7); Neutrophils Percent Auto 76.8 % (45.5-73.1); Platelet Count Result 352 k/mm3 (150-375); Red Blood Count 4.59 M/mm3 (4.6-6.20); White Blood Count 14.9 K/mm3 (4.5-10.0)
[2022-04-24 06:00] VITALS: BP 130/83; PULSE 87; RESP 16; TEMP 37.1; O2SAT 98
--- NOTE | 2022-04-24 09:23 | PM.PNGS ---
Progress Note: A&P Assessment and Plan (1) Abscess of sigmoid colon due to diverticulitis: Code(s): K57.20 - Diverticulitis of large intestine with perforation and abscess without bleeding Status: Acute Assessment and Plan: Advance to full liquid diet WBC still elevated, continue to monitor. Could consider repeat CT in next 1-2 days if no significant improvement. Continue IV Zosyn. (2) Tobacco abuse: Code(s): Z72.0 - Tobacco use Status: Chronic (3) Hypertension: Code(s): I10 - Essential (primary) hypertension Status: Acute (4) Deaf: Code(s): H91.90 - Unspecified hearing loss, unspecified ear Status: Acute Subjective Subjective Date/Time Seen: 04/24/22 09:23 Interval history: patient still stating his pain is around a 6. He seems pretty comfortable laying on the couch in getting up moving around. He denies any fevers. He has not had a bowel movement. Exam GI: Inspection: non-distended GI Palp: Yes Soft to palpation, Yes Tenderness to palpation present (GI) (LLQ), No Guarding due to palpation present (GI) and No Rebound tenderness present Auscultation: normal bowel sounds Objective Data Vital Signs Vital Signs: Vital Signs - 24 hr 04/23/22 14:00 04/23/22 22:00 04/24/22 06:00 Temperature 36.6 C 36.6 C 37.1 C Pulse Rate 97 96 87 Respiratory Rate 16 18 16 Blood Pressure 127/78 115/77 130/83 Pulse Oximetry 99 97 98 Intake/Output Intake/Output: Intake & Output 04/21/22 04/22/22 04/23/22 04/24/22 23:59 23:59 23:59 23:59 Intake Total 1200 2830 3740 1340 Output Total 600 1600 2550 Balance 1200 2230 2140 -1210 Meds/Results Medications: Active Medications Generic Name Dose Route Start Last Admin Trade Name Freq PRN Reason Stop Dose Admin Hydrocodone Bitart/Acetaminophen 1 tab 04/22/22 08:30 Hydrocodone/Acetaminophen (*Crx) 5-325 Mg Tablet PO Q6H PRN Pain Rated 4-6 Hydrocodone Bitart/Acetaminophen 1 tab 04/22/22 08:31 04/24/22 03:31 Hydrocodone/Acetaminophen (*Crx) 7.5-325 Mg Tablet PO 1 tab Q6H PRN Administration Pain Rated 7-10 Bisacodyl 10 mg 04/21/22 16:43 Bisacodyl 10 Mg Suppository RECTAL QAM PRN Constipation Famotidine 20 mg 04/21/22 21:00 04/23/22 20:00 Famotidine 20 Mg Tablet PO 20 mg Q12HR LAYA Administration Hydralazine HCl 10 mg 04/21/22 22:54 Hydralazine Hcl 20 Mg/Ml Vial IV PUSH Q8H PRN Blood Pressure - High Hydrocortisone Acetate 25 mg 04/21/22 21:00 Hydrocortisone Acetate 25 Mg Suppository RECTAL Q12H PRN ITCHING/DISCOMFORT Piperacillin/Tazobactam/Dextrose 3.375 gm in 50 mls @ 100 mls/hr 04/21/22 19:00 04/24/22 07:22 Zosyn 3.375 Gm/D5w 50ml Pm IVPB Infused Q6HR LAYA Infusion Morphine Sulfate 2 mg 04/21/22 16:43 04/23/22 23:37 Morphine Sulfate (*Crx) 2 Mg/Ml Inj IV PUSH 2 mg Q3H PRN Administration Pain Rated 4-6 Nicotine 1 patch 04/21/22 16:35 04/23/22 09:17 Nicotine (*Pbkc) 21 Mg Patch TRANSDERM 1 patch QAM LAYA Administration Simethicone 80 mg 04/23/22 09:00 04/24/22 09:17 Simethicone 80 Mg Tab.Chew PO Not Given QID LAYA Witch Dominga 1 pad 04/21/22 17:00 Witch Dominga 40 Pads TOPICAL PRN PRN Perineal Discomfort Radiology Results: ITS Impressions Abdomen/Pelvis CT 04/21/22 12:52 IMPRESSION: Sigmoid diverticulitis with pericolic abscess cavity contains fluid and a prominent of free air, extending as high as the proximal aspect of the common iliac arteries Abdomen X-Ray 04/22/22 06:53 IMPRESSION: 1. Nonobstructive bowel gas pattern. Labs Labs: Laboratory Results - last 24 hr 04/24/22 05:34 WBC 14.9 H RBC 4.59 L Hgb 13.1 L Hct 40.1 L MCV 87.4 MCH 28.5 MCHC 32.7 RDW 14.0 Plt Count 352 MPV 9.1 Immature Gran % (Auto) 0.7 H Neut % (Auto) 76.8 H Lymph % (Auto) 12.0 L [place] % (Auto) 9.7 H Eos % (Auto)
[2022-04-24] MEDS: NICOTINE (*PBKC) 21 MG PATCH 1 PATCH TRANSDERM (09:24)
[2022-04-24] MEDS: FAMOTIDINE 20 MG TABLET PO ×2 (09:24→20:35)
--- NOTE | 2022-04-24 10:56 | PM.IMPN ---
Progress Note: A&P Assessment and Plan (1) Diverticulitis of intestine with abscess: Qualifiers: Diverticulitis bleeding: with bleeding Diverticulitis site: large intestine Qualified Code(s): K57.21 - Diverticulitis of large intestine with perforation and abscess with bleeding Code(s): K57.80 - Diverticulitis of intestine, part unspecified, with perforation and abscess without bleeding Status: Acute Assessment and Plan: -appreciate surgery input -the patient remains on Zosyn. -blood cultures are pending -continue with IV fluids. -analgesics (2) Hemorrhoid: Qualifiers: Hemorrhoid type: unspecified Qualified Code(s): K64.9 - Unspecified hemorrhoids Code(s): K64.9 - Unspecified hemorrhoids Status: Acute Assessment and Plan: -tucks pad has been ordered for the patient. -bisacodyl suppository has been ordered for the patient -hydrocortisone has been ordered as well. (3) Tobacco abuse: Code(s): Z72.0 - Tobacco use Status: Chronic Assessment and Plan: -the patient has agreed to nicotine patch. -we briefly discussed smoking cessation less than 5 minutes. (4) Hypertension: Code(s): I10 - Essential (primary) hypertension Status: Acute Assessment and Plan: blood pressure looks good (5) Hyperlipidemia: Qualifiers: Hyperlipidemia type: unspecified Qualified Code(s): E78.5 - Hyperlipidemia, unspecified Code(s): E78.5 - Hyperlipidemia, unspecified Status: Chronic Assessment and Plan: Patient is NPO at this time. Simvastatin is on hold. (6) Deaf: Code(s): H91.90 - Unspecified hearing loss, unspecified ear Status: Acute Assessment and Plan: -the patient communicating through the bilingual interpreter and writing notes. Subjective Date/time seen: 04/24/22 10:56 no new complaints Exam Const: General: cooperative, comfortable, no acute distress, well developed, alert, awake, Physically active, ill appearing, average body habitus and well nourished Nutritional Appearance: average body habitus and well nourished Orientation/consciousness: oriented to person, oriented to place, oriented to time and patient oriented x3 Other: The patient is deaf and communicates through his sister and the bilingual interpreter HENMT: Head: normal to inspection, No palpable skull fracture present, normocephalic and atraumatic Ears: external ears normal (The patient is deaf bilaterally) Face/Nose/Sinus: Normal external nose present and Normal nares present Mouth: Yes dry mucous membranes Eyes: General: appearance normal, both eyes and all related structures Alignment and Position: alignment normal Eyelids: eyelids normal Pupils: Equal, round and reactive pupils present Neck: Neck: normal visual inspection, full ROM, no lymphadenopathy, trachea midline and supple Chest: Chest palpation & inspection: normal inspection of the chest Resp: Effort & Inspection: normal respiratory effort Auscultation: wheezes lower bilaterally Cardio: Palpation: normal PMI Rate: tachycardic Rhythm: regular rhythm Heart sounds: S1 normal heart sound present and S2 normal heart sound present Peripheral pulses: Peripheral pulses 2+ throughout GI: Inspection: normal to inspection Auscultation: normal bowel sounds Rectal Exam: deferred Other: Tenderness to lower and right lower and mid abdomen around the umbilical area. Back/Spine/Pelvis: Cervical Spine: cervical ROM normal Skin: General skin exam: normal color Lesions: no lesions Rashes: no rashes Trauma: no lacerations or abrasions Wounds: no wounds Hair: general thinning Nails: normal Neuro: General: oriented to person, oriented to place, oriented to time and patient oriented x3 Cranial nerves: Yes Equal, round and reactive pupils present and Yes Normal hearing present Cognition (Neuro): normal cognition Speech: normal speech Motor exam (neuro): 5/5 motor strength
[2022-04-24] MEDS: polyethylene glycoL 3350 17 GM POWD.PACK PO (13:02)
[2022-04-24 14:00] VITALS: BP 121/80; PULSE 82; RESP 18; TEMP 36.8; O2SAT 97
[2022-04-24 21:17] VITALS: BP 144/92; PULSE 78; RESP 18; TEMP 36.6; O2SAT 98
[2022-04-24] MEDS: HYDROcodone/acetaminophen (*CRX) 5-325 MG TABLET 1 TAB PO (22:09)
[2022-04-25] MEDS: HYDROcodone/acetaminophen (*CRX) 7.5-325 MG TABLET 1 TAB PO ×3 (04:29→17:16)
[2022-04-25 06:00] VITALS: BP 122/89; PULSE 85; RESP 18; TEMP 37.1; O2SAT 98
[2022-04-25 06:18] LABS: Hematocrit 40.5 % (42.0-52.0); Hemoglobin 13.4 g/dL (14.0-18.0); Mean Corpuscular HGB Conc 33.1 g/dl (32-36); Mean Corpuscular Hemoglobin 28.6 pg (26-34); Mean Corpuscular Volume 86.4 fl (80-100); Platelet Count Result 418 k/mm3 (150-375); Red Blood Count 4.69 M/mm3 (4.6-6.20)
[2022-04-25 06:19] LABS: Basophils Absolute Auto 0.1 K/mm3 (0.0-0.1); Basophils Percent Auto 0.4 % (0.2-1.2); Eosinophils Absolute Auto 0.1 K/mm3 (0-0.3); Eosinophils Percent Auto 0.6 % (0-4.4); Immature Granulocyte Absolute 0.08 K/mm3 (0.00-0.031); Immature Granulocyte Percent A 0.6 % (0-0.5); Lymphocytes Absolute Auto 1.94 K/mm3 (0.9-3.2); Lymphocytes Percent Auto 13.9 % (18.3-44.2); Mean Platelet Volume 9.5 fl (7.4-10.4); Monocytes Absolute Auto 1.3 K/mm3 (0.1-0.6); Monocytes Percent Auto 9.2 % (2.6-8.5); Neutrophils Absolute Auto 10.5 K/mm3 (1.3-6.7); Neutrophils Percent Auto 75.3 % (45.5-73.1)
[2022-04-25] MEDS: FAMOTIDINE 20 MG TABLET PO ×2 (08:41→20:40)
[2022-04-25] MEDS: NICOTINE (*PBKC) 21 MG PATCH 1 PATCH TRANSDERM (08:41)
[2022-04-25] MEDS: polyethylene glycoL 3350 17 GM POWD.PACK PO (08:41)
[2022-04-25] MEDS: LACTATED RINGERS 1,000 ML 100 ML IV CONT ×2 (08:41→23:07)
[2022-04-25] MEDS: HYDROCORTISONE ACETATE 25 MG SUPPOSITORY RECTAL (08:41)
--- NOTE | 2022-04-25 09:45 | PM.IMPN ---
Progress Note: A&P Assessment and Plan (1) Diverticulitis of intestine with abscess: Qualifiers: Diverticulitis bleeding: with bleeding Diverticulitis site: large intestine Qualified Code(s): K57.21 - Diverticulitis of large intestine with perforation and abscess with bleeding Code(s): K57.80 - Diverticulitis of intestine, part unspecified, with perforation and abscess without bleeding Status: Acute Assessment and Plan: -appreciate surgery input -the patient remains on Zosyn. -blood cultures noted -continue with IV fluids. -analgesics (2) Hemorrhoid: Qualifiers: Hemorrhoid type: unspecified Qualified Code(s): K64.9 - Unspecified hemorrhoids Code(s): K64.9 - Unspecified hemorrhoids Status: Acute Assessment and Plan: -tucks pad has been ordered for the patient. -bisacodyl suppository has been ordered for the patient -hydrocortisone has been ordered as well. (3) Tobacco abuse: Code(s): Z72.0 - Tobacco use Status: Chronic Assessment and Plan: -the patient has agreed to nicotine patch. -we briefly discussed smoking cessation less than 5 minutes. (4) Hypertension: Code(s): I10 - Essential (primary) hypertension Status: Acute Assessment and Plan: blood pressure looks good (5) Hyperlipidemia: Qualifiers: Hyperlipidemia type: unspecified Qualified Code(s): E78.5 - Hyperlipidemia, unspecified Code(s): E78.5 - Hyperlipidemia, unspecified Status: Chronic Assessment and Plan: Patient is NPO at this time. Simvastatin is on hold. (6) Deaf: Code(s): H91.90 - Unspecified hearing loss, unspecified ear Status: Acute Assessment and Plan: -the patient communicating through the medicare interviewer and writing notes. Subjective Date/time seen: 04/25/22 09:45 no complaints Exam Const: General: cooperative, comfortable, no acute distress, well developed, alert, awake, Physically active, ill appearing, average body habitus and well nourished Nutritional Appearance: average body habitus and well nourished Orientation/consciousness: oriented to person, oriented to place, oriented to time and patient oriented x3 Other: The patient is deaf and communicates through his sister and the medicare interviewer HENMT: Head: normal to inspection, No palpable skull fracture present, normocephalic and atraumatic Ears: external ears normal (The patient is deaf bilaterally) Face/Nose/Sinus: Normal external nose present and Normal nares present Mouth: Yes dry mucous membranes Eyes: General: appearance normal, both eyes and all related structures Alignment and Position: alignment normal Eyelids: eyelids normal Pupils: Equal, round and reactive pupils present Neck: Neck: normal visual inspection, full ROM, no lymphadenopathy, trachea midline and supple Chest: Chest palpation & inspection: normal inspection of the chest Resp: Effort & Inspection: normal respiratory effort Auscultation: wheezes lower bilaterally Cardio: Palpation: normal PMI Rate: tachycardic Rhythm: regular rhythm Heart sounds: S1 normal heart sound present and S2 normal heart sound present Peripheral pulses: Peripheral pulses 2+ throughout GI: Inspection: normal to inspection Auscultation: normal bowel sounds Rectal Exam: deferred Other: Tenderness to lower and right lower and mid abdomen around the umbilical area. Back/Spine/Pelvis: Cervical Spine: cervical ROM normal Skin: General skin exam: normal color Lesions: no lesions Rashes: no rashes Trauma: no lacerations or abrasions Wounds: no wounds Hair: general thinning Nails: normal Neuro: General: oriented to person, oriented to place, oriented to time and patient oriented x3 Cranial nerves: Yes Equal, round and reactive pupils present and Yes Normal hearing present Cognition (Neuro): normal cognition Speech: normal speech Motor exam (neuro): 5/5 motor strength present th
[2022-04-25 14:13] VITALS: BP 144/96; PULSE 78; RESP 16; TEMP 36.9; O2SAT 99
--- NOTE | 2022-04-25 14:33 | PM.PNGS ---
Progress Note: A&P Assessment and Plan (1) Abscess of sigmoid colon due to diverticulitis: Code(s): K57.20 - Diverticulitis of large intestine with perforation and abscess without bleeding Status: Acute Assessment and Plan: Continue full liquid diet WBC still elevated, But stable at 14.continue to monitor. CT Abdomen and pelvis repeated today. There is still no free air. There is still some fluid near the inflamed diverticulum in the mid sigmoid but it is not well loculated yet. (per Radiologist not a well formed abcess and it's still small at 2-3 cm. There is also some gas tracking in the retroperitoneum. However, clinically the patient continues to gradually improve. Will continue to monitor. Repeat CBC, CMP, CRP, and Mag in a.m.. Will start oral Flagyl today to see how he tolerates it as I will think about send him home on Levaquin and Flagyl. Continue IV Zosyn. Start oral Flagyl this afternoon. (2) Tobacco abuse: Code(s): Z72.0 - Tobacco use Status: Chronic Assessment and Plan: Encourage cessation (3) Hypertension: Code(s): I10 - Essential (primary) hypertension Status: Acute Assessment and Plan: resume home meds if needed. (4) Deaf: Code(s): H91.90 - Unspecified hearing loss, unspecified ear Status: Acute Assessment and Plan: Apparently congenital. Subjective Subjective Date/Time Seen: 04/25/22 07:33 Patient reports: no new complaints, feels better, still having pain (manly lower abdomen.), tolerating liquids well and bowel movement (last night (no blood on stool).) Interval history: Pt's sister/POA/mother tester in room this AM and helped communicate. Patient indicated his pain now is to 3/10 compared to 07/08 over when he 1st came in. He felt nauseated last evening but did. Does feel nauseated this. Exam Const: General: cooperative, alert and awake Orientation/consciousness: patient oriented x3 HENMT: Head: normal to inspection Mouth: Yes moist mucous membranes Eyes: Sclera: sclerae normal Pupils: Equal, round and reactive pupils present Neck: Neck: normal visual inspection Chest: Chest palpation & inspection: normal inspection of the chest Resp: Effort & Inspection: normal respiratory effort Auscultation: clear to auscultation bilaterally Cardio: Rate: regular rate GI: Inspection: normal to inspection and no visible herniation GI Palp: Yes Tenderness to palpation present (GI) ( Mainly across the lower abdomen. Slightly more tender on the right.), No Guarding due to palpation present (GI), No Rigid due to palpation and No Rebound tenderness present Auscultation: normal bowel sounds Neuro: General: patient oriented x3 Cranial nerves: Yes Equal, round and reactive pupils present Objective Data Vital Signs Vital Signs: Vital Signs - 24 hr 04/24/22 21:17 04/25/22 06:00 04/25/22 14:13 Temperature 36.6 C 37.1 C 36.9 C Pulse Rate 78 85 78 Respiratory Rate 18 18 16 Blood Pressure 144/92 H 122/89 144/96 H Pulse Oximetry 98 98 99 Intake/Output Intake/Output: Intake & Output 04/22/22 04/23/22 04/24/22 04/25/22 23:59 23:59 23:59 23:59 Intake Total 2830 3740 2970 200 Output Total 600 1600 3850 2300 Balance 2230 2140 -880 -2100 Meds/Results Medications: Active Medications Generic Name Dose Route Start Last Admin Trade Name Freq PRN Reason Stop Dose Admin Hydrocodone Bitart/Acetaminophen 1 tab 04/22/22 08:30 04/24/22 22:09 Hydrocodone/Acetaminophen (*Crx) 5-325 Mg Tablet PO 1 tab Q6H PRN Administration Pain Rated 4-6 Hydrocodone Bitart/Acetaminophen 1 tab 04/22/22 08:31 04/25/22 11:19 Hydrocodone/Acetaminophen (*Crx) 7.5-325 Mg Tablet PO 1 tab Q6H PRN Administration Pain Rated 7-10 Bisacodyl 10 mg 04/21/22 16:43 Bisacodyl 10 Mg Suppository RECTAL QAM PRN Constipation Famotidine 20 mg 04/21/22 21:00 04/25/22 08:41 Famotid
[2022-04-25] MEDS: metroNIDAZOLE 250 MG TABLET 500 MG PO ×2 (17:16→20:39)
[2022-04-25 20:20] VITALS: PULSE 85; RESP 18; O2SAT 97
[2022-04-25] MEDS: HYDROcodone/acetaminophen (*CRX) 5-325 MG TABLET 1 TAB PO (20:38)
[2022-04-25] MEDS: SIMETHICONE 80 MG TAB.CHEW PO (20:40)
[2022-04-25 21:42] VITALS: BP 128/79; PULSE 85; RESP 18; TEMP 36.4; O2SAT 97
[2022-04-25] MEDS: MORPHINE SULFATE (*CRX) 2 MG/ML INJ IV PUSH (23:07)
[2022-04-26] MEDS: HYDROcodone/acetaminophen (*CRX) 7.5-325 MG TABLET 1 TAB PO (02:24)
[2022-04-26 06:00] VITALS: BP 121/76; PULSE 86; RESP 18; TEMP 36.7; O2SAT 96
[2022-04-26 06:23] LABS: Basophils Absolute Auto 0.1 K/mm3 (0.0-0.1); Basophils Percent Auto 0.3 % (0.2-1.2); Eosinophils Absolute Auto 0.2 K/mm3 (0-0.3); Hematocrit 39.2 % (42.0-52.0); Immature Granulocyte Absolute 0.14 K/mm3 (0.00-0.031); Immature Granulocyte Percent A 0.8 % (0-0.5); Lymphocytes Absolute Auto 2.04 K/mm3 (0.9-3.2); Lymphocytes Percent Auto 11.4 % (18.3-44.2); Mean Corpuscular HGB Conc 33.2 g/dl (32-36); Mean Corpuscular Volume 84.5 fl (80-100); Mean Platelet Volume 8.9 fl (7.4-10.4); Monocytes Absolute Auto 1.5 K/mm3 (0.1-0.6); Monocytes Percent Auto 8.2 % (2.6-8.5); Neutrophils Percent Auto 78.3 % (45.5-73.1); Platelet Count Result 467 k/mm3 (150-375); Red Blood Count 4.64 M/mm3 (4.6-6.20); Red Cell Distribution Width 14.2 % (11.5-14.5); White Blood Count 17.8 K/mm3 (4.5-10.0)
[2022-04-26] MEDS: metroNIDAZOLE 250 MG TABLET 500 MG PO ×2 (06:27→14:10)
[2022-04-26 06:42] LABS: Lactic Acid Reflex 1.1 mmol/L (0.7-2.0)
[2022-04-26] MEDS: HYDROcodone/acetaminophen (*CRX) 5-325 MG TABLET 1 TAB PO ×2 (06:46→12:35)
[2022-04-26 07:00] LABS: Alanine Aminotransferase 40 U/L (6-50); Albumin Level 3.7 g/dL (3.5-5.1); Alkaline Phosphatase 177 U/L (38-126); Anion Gap 13 mmol/L (8-16); Aspartate Amino Transferase 27 U/L (17-59); Bilirubin,Total 1.2 mg/dL (0.2-1.3); Blood Urea Nitrogen 8 mg/dL (9-20); Calcium 8.8 mg/dL (8.4-10.2); Carbon Dioxide 24 mmol/L (22-30); Chloride 96 mmol/L (98-107); Estimated CRCL calculation 83 ml/min; Estimated Glomerular Filt Rate > 60; Glucose 114 mg/dL (65-110); Lipase 26 U/L (23-300); Magnesium 1.9 mg/dL (1.6-2.3); Potassium 3.8 mmol/L (3.4-5.0); Sodium 133 mmol/L (137-145)
[2022-04-26] MEDS: SIMETHICONE 80 MG TAB.CHEW PO ×2 (09:15→12:35)
[2022-04-26] MEDS: FAMOTIDINE 20 MG TABLET PO (09:15)
[2022-04-26] MEDS: NICOTINE (*PBKC) 21 MG PATCH 1 PATCH TRANSDERM (09:22)
--- NOTE | 2022-04-26 11:10 | PM.PNGS ---
Progress Note: A&P Assessment and Plan (1) Abscess of sigmoid colon due to diverticulitis: Code(s): K57.20 - Diverticulitis of large intestine with perforation and abscess without bleeding Status: Acute Assessment and Plan: advance to low-fiber diet WBC still elevated, however patient clinically the same. No fevers, tolerated metronidazole okay for 2-[address] Abdomen and pelvis repeated on 04/25. There is still no free air. There is still some fluid near the inflamed diverticulum in the mid sigmoid but it is not well loculated yet. (per Radiologist not a well formed abscess, and it's still small at 2-3 cm. There is also some gas tracking in the retroperitoneum. However, clinically the patient continues to gradually improve. Will continue to monitor. Started oral Flagyl on 04/26 and stop pipercillin and change to oral Levofloxacin 750 daily today, as I will think about send him home on Levaquin and Flagyl. Consider home later today on oral antibiotics x7 days with a repeat CT scan on Wednesday 05/02 and see me in the office on Thursday 05/03 Start oral Levofloxacin this afternoon. patient to begin Sitz bath as for his hemorrhoids when he goes home. (2) Tobacco abuse: Code(s): Z72.0 - Tobacco use Status: Chronic Assessment and Plan: Encourage cessation (3) Hypertension: Code(s): I10 - Essential (primary) hypertension Status: Acute Assessment and Plan: resume home meds if needed. (4) Deaf: Code(s): H91.90 - Unspecified hearing loss, unspecified ear Status: Acute Assessment and Plan: Apparently congenital. (5) Hemorrhoid: Qualifiers: Hemorrhoid type: unspecified Qualified Code(s): K64.9 - Unspecified hemorrhoids Code(s): K64.9 - Unspecified hemorrhoids Status: Acute Assessment and Plan: Patient to begin Sitz bath as for his hemorrhoids when he goes home. Also discussed with sister/ POA for him to use Metamucil orally while he is on the low-fiber diet. Then switched to high-fiber diet which should also help his hemorrhoids. Also daytime he could use Anusol cream or preparation H. and evening time use tucks pads. (6) Diverticulitis of intestine with abscess: Qualifiers: Diverticulitis bleeding: with bleeding Diverticulitis site: large intestine Qualified Code(s): K57.21 - Diverticulitis of large intestine with perforation and abscess with bleeding Code(s): K57.80 - Diverticulitis of intestine, part unspecified, with perforation and abscess without bleeding Status: Acute Subjective Subjective Date/Time Seen: 04/26/22 08:10 Patient reports: no new complaints, still having pain ( mainly lumbar back pain), pain is less ( lower abdomen is less -- now /) and bowel movement ( loose stool x3 since this time yesterday) Interval history: The patient states through his sister (signing) that hemorrhoids are less of a problem now. Review of Systems Constitutional: Constitutional: Reports as per HPI, Denies chills and Denies fever(s) Cardiovascular: Cardiovascular: Denies chest pain and Denies dyspnea Respiratory: Respiratory: Reports no additional respiratory complaints and Denies dyspnea Gastrointestinal: Gastrointestinal: Reports as per HPI, Reports abdominal pain and Denies bloating Comments: No bleeding from the hemorrhoids for several days. Patient indicates he is using tucks pad successfully. Only mild discomfort in anal area with bowel movements. Musculoskeletal: Musculoskeletal: Reports no additional musculoskeletal complaints Neurologic: Denies memory loss Psychiatric: Psychiatric: Denies memory loss Exam Const: General: cooperative, alert and awake Orientation/consciousness: patient oriented x3 HENMT: Head: normal to inspection Mouth: Yes moist mucous membranes Eyes: Sclera: sclerae normal Pupils: Equal, round and reactive pupils present Ne
[2022-04-26] MEDS: levoFLOXacin 750 MG TABLET PO (11:43)
--- NOTE | 2022-04-26 11:59 | PM.DS ---
DS: Admitting Diagnosis Discharge Date April 26, 2022 Admitting Diagnosis diverticular abscess DS: Discharge Diagnosis Discharge Diagnosis (1) Diverticulitis of intestine with abscess: Qualifiers: Diverticulitis bleeding: with bleeding Diverticulitis site: large intestine Qualified Code(s): K57.21 - Diverticulitis of large intestine with perforation and abscess with bleeding Code(s): K57.80 - Diverticulitis of intestine, part unspecified, with perforation and abscess without bleeding Status: Acute Assessment and Plan: -appreciate surgery input -the patient remains on Zosyn. -blood cultures noted -continue with IV fluids. -analgesics (2) Hemorrhoid: Qualifiers: Hemorrhoid type: unspecified Qualified Code(s): K64.9 - Unspecified hemorrhoids Code(s): K64.9 - Unspecified hemorrhoids Status: Acute Assessment and Plan: -tucks pad has been ordered for the patient. -bisacodyl suppository has been ordered for the patient -hydrocortisone has been ordered as well. (3) Tobacco abuse: Code(s): Z72.0 - Tobacco use Status: Chronic Assessment and Plan: -the patient has agreed to nicotine patch. -we briefly discussed smoking cessation less than 5 minutes. (4) Hypertension: Code(s): I10 - Essential (primary) hypertension Status: Acute Assessment and Plan: blood pressure looks good (5) Hyperlipidemia: Qualifiers: Hyperlipidemia type: unspecified Qualified Code(s): E78.5 - Hyperlipidemia, unspecified Code(s): E78.5 - Hyperlipidemia, unspecified Status: Chronic Assessment and Plan: Patient is NPO at this time. Simvastatin is on hold. (6) Deaf: Code(s): H91.90 - Unspecified hearing loss, unspecified ear Status: Acute Assessment and Plan: -the patient communicating through the historical interpreter and writing notes. DS: Summary Hospital Course Hospital Course: patient is a 56-year-old gentleman who came in with diverticulitis and alevation of his white count. He was treated conservatively and still has a mild elevation of his white count. Patient is tolerating diet. Surgery recommended a sending the patient home and follow up with some obliquely to the outpatient clinic on oral antibiotics. Patient is aware and will follow up with General surgery Time Spent with Patient Time attestation: Total time spent providing and/or coordinating discharge services: Exam Const: General: cooperative, comfortable, no acute distress, well developed, alert, awake, Physically active, ill appearing, average body habitus and well nourished Nutritional Appearance: average body habitus and well nourished Orientation/consciousness: oriented to person, oriented to place, oriented to time and patient oriented x3 Other: The patient is deaf and communicates through his sister and the historical interpreter HENMT: Head: normal to inspection, No palpable skull fracture present, normocephalic and atraumatic Ears: external ears normal (The patient is deaf bilaterally) Face/Nose/Sinus: Normal external nose present and Normal nares present Mouth: Yes dry mucous membranes Eyes: General: appearance normal, both eyes and all related structures Alignment and Position: alignment normal Eyelids: eyelids normal Pupils: Equal, round and reactive pupils present Neck: Neck: normal visual inspection, full ROM, no lymphadenopathy, trachea midline and supple Chest: Chest palpation & inspection: normal inspection of the chest Resp: Effort & Inspection: normal respiratory effort Auscultation: wheezes lower bilaterally Cardio: Palpation: normal PMI Rate: tachycardic Rhythm: regular rhythm Heart sounds: S1 normal heart sound present and S2 normal heart sound present Peripheral pulses: Peripheral pulses 2+ throughout GI: Inspection: normal to inspection Auscultation: normal bowel sounds Rectal Exam: deferred Other:
[2022-04-26 14:00] VITALS: BP 121/79; PULSE 87; RESP 20; TEMP 36.2; O2SAT 99
== END 2022-04-26 16:39 | disposition home or self-care (01) | DRG 379 ==
LOC: ANHED 14:26 → ANH3MEDSUR 16:28
PROVIDERS: Physician Assistant; Surgery; Admitting Provider Chiropractor; Emergency Provider Emergency Medicine; PCP Internal Medicine; Visit Provider Chiropractor
DX: K57.21 Diverticulitis of large intestine with perforation and abscess with bleeding (principal); I10 Essential (primary) hypertension; E78.5 Hyperlipidemia, unspecified; H91.90 Unspecified hearing loss, unspecified ear; F17.210 Nicotine dependence, cigarettes, uncomplicated; K64.9 Unspecified hemorrhoids; Z20.822 Contact with and (suspected) exposure to COVID-19; Z79.82 Long term (current) use of aspirin; Z79.899 Other long term (current) drug therapy; Z86.718 Personal history of other venous thrombosis and embolism
CPT/HCPCS: 36415; 74019; 74177; 80048; 80053; 83036; 83605; 83690; 83735; 85025; 85610; 85730; 86140; 86850; 86900; 86901; 87040; 87636; 93005; 96361; 96365; 96366; 96367; 96376; 99285; A9270; G0378; J0131; J2270; J2543; J7030; J7120; Q9967

== ENCOUNTER 2022-05-03 16:14 | Outpatient (CLI) | payer BC, SELFPAY ==
--- NOTE | ~2022-05-03 | CT_ITS ---
EXAMINATION: CT abdomen pelvis w con DATE: 05/03/2022 16:50 INDICATION: Diverticulitis of intestine. TECHNIQUE: Computed tomography (CT) of the abdomen and pelvis was performed with 100 mL Omnipaque 350 intravenous contrast. Automated exposure control and iterative reconstruction technique were employe d. The dose-length product was 375.90 mGy-cm. COMPARISON: CT abdomen and pelvis 04/25/2022 FINDINGS: The visualized portions of the lung bases demonstrates mild atelectasis. No pleural effusio n. The heart size is normal. No pericardial effusion. Pneumomediastinum is noted with interval improv ement. The liver, gallbladder, spleen, pancreas, adrenal glands, and kidneys are normal. The prostate is mildly enlarged. There is wall thickening of the sigmoid colon. There is a small intramural absce ss in this area that is contiguous with a tract of fluid and gas extending superiorly in the retroper itoneum. The largest transaxial dimension of the fluid collection measures 3.0 x 3.3 cm. The tract ex tends 18 cm craniocaudal. There are other scattered foci of gas in the retroperitoneum and mesentery. There is no free intraperitoneal fluid. There are no pathologically enlarged lymph nodes. There are scattered diverticula in the colon. There are no dilated loops of bowel. The appendix is normal. Ther e is a 3.1 cm fusiform aneurysm of infrarenal aorta. There is mild aortic atherosclerosis. There is m oderate lumbar spondylosis. IMPRESSION: 1. Perforated sigmoid diverticulitis with retroperitoneal abscess. Consider CT-guided drainage. I rev iewed this exam with Dr. Fowler. 2. Stable 3.1 cm fusiform aneurysm of infrarenal aorta. Reviewed, dictated and finalized at location A. CIPAL CONSULTANT IMPRESSION: 1. Perforated sigmoid diverticulitis with retroperitoneal abscess. Consider CT- guided drainage. I reviewed this exam with Dr. Fowler. 2. Stable 3.1 cm fusiform aneurysm of infrarenal aorta.
== END 2022-05-03 16:15 | disposition home or self-care (01) ==
LOC: ANHIMG 16:17
PROVIDERS: PCP Internal Medicine; Visit Provider Surgery
DX: K57.80 Diverticulitis of intestine, part unspecified, with perforation and abscess without bleeding (principal); I71.43 Infrarenal abdominal aortic aneurysm, without rupture
CPT/HCPCS: 74177; Q9967

== ENCOUNTER 2022-05-04 12:45 | Outpatient (CLI) | payer BC, SELFPAY ==
[2022-05-04] VITALS (10 sets, daily range): BP systolic 106–124; BP diastolic 83–95; PULSE 97–104; RESP 12–17; O2SAT 99–100; BMI 23.8
--- NOTE | ~2022-05-04 | CT_ITS ---
EXAMINATION: CT guide absc cath placement DATE: 05/04/2022 14:49 INDICATION: Retroperitoneal abscess. TECHNIQUE: The procedure including the risks, benefits, and alternatives was discussed with the patie nt with an educational sign language interpreter. Risks discussed included bleeding and infection. The patient understood the r isks and benefits and agreed to proceed. The patient was confirmed to be receiving appropriate antibi otic coverage. The skin overlying the abdomen was prepped and draped in usual sterile fashion. Anes thetic was administered with 1% lidocaine subcutaneously. Moderate sedation was achieved with 1 mg Ve rsed IV and 100 mcg fentanyl IV. An 18 gauge trochar needle was inserted into the retroperitoneal abs cess with CT guidance. The needle was exchanged over a wire for 6 Trinidadian, 8 Trinidadian, and 9 Trinidadian dila tors and then for an 8.5 Trinidadian pigtail catheter. The catheter was stitched to the skin, and a steril e dressing was applied. The mA was adjusted according to patient size. Iterative reconstruction techn ique was employed. The dose-length product was 229.45 mGy-cm. There were no immediate complications. FINDINGS: CT images demonstrate the catheter within the retroperitoneal abscess. 4 mL fluid was aspir ated for testing. IMPRESSION: 1. Successful CT-guided retroperitoneal abscess drainage. 2. 4 mL opaque, levine fluid was sent for aerobic and anaerobic cultures. Reviewed, dictated and finalized at location A. LING CASHIER
--- NOTE | 2022-05-04 14:04 | SUR.OPER ---
Addendum entered by Amanda Penaloza RN 05/04/22 15:19: Prior to procedure patient's sister Tania and patient were educated on procedure by Dr. De Guzman. Allergies verified. 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 At start of procedure patient had mild lower abdominal pain of 1-2/10. MD aware. Original Note: Time out occurred for procedure at 1357. Sedation/procedure start at 1403.
--- NOTE | 2022-05-04 14:36 | SUR.OPER ---
Procedure end at 9083
--- NOTE | 2022-05-04 15:14 | SUR.PHASEII ---
Patient completed phase II discharge at 1445. VSS. Patient denied any complaints or concerns. He was released to leave per Dr. De Guzman and was to be escorted out per radiology team. Drain/puncture site care instructions provided to patient and patient's sister Tania by Dr. De Guzman- no getting wet. Per patient's sister patient has an appt. this with surgeon Dr. Fowler. Moderate sedation discharge instructions reviewed with patient and patient's sister Tania- no driving for 24 hours after sedation, no ETOH or other sedating meds/products for 24 hours after sedation, stay with a responsible adult to summon for help for 24 hours (patient is staying with his sister), no legal paperwork or important decisions for 24 hours following sedation, rest/take it easy, eat small frequent meals and stay hydrated. They verbalized understanding of instructions and were aware of who to call with any issues with drain or any problems post sedation call 911 for emergencies.
== END 2022-05-04 12:46 | disposition home or self-care (01) ==
PROVIDERS: PCP Internal Medicine; Referring Provider Radiology Diagnostic Radiology; Visit Provider Surgery
DX: K68.19 Other retroperitoneal abscess (principal); K57.20 Diverticulitis of large intestine with perforation and abscess without bleeding
CPT/HCPCS: 75989; 87070; 87075; 87106; 87186; 87205; C1729; J2250; J3010

== ENCOUNTER → 2022-05-11 14:12 | Outpatient (CLI) | payer BC, SELFPAY ==
--- NOTE | ~2022-05-11 | CT_ITS ---
EXAMINATION: CT abdomen pelvis w con DATE: 05/11/2022 14:41 INDICATION: Diverticulitis of large intestine with perforation, abscess TECHNIQUE: Computed tomography (CT) of the abdomen and pelvis was performed with 100 CC Omnipaque 350 intravenous contrast. Automated exposure control and iterative reconstruction technique were employe d. Exam dose: 442.75 mGy-cm total exam DLP. COMPARISON: 05/03/2022 CT abdomen pelvis FINDINGS: No infiltrate or consolidation at the lung bases. There is mild linear discoid atelectasis at the base of the lingula. Heart size is normal. No pericardial or pleural effusion. The liver, gallbladder, bile ducts, pancreas, pancreatic duct, spleen, and adrenal glands and kidneys are unremarkable except for a small posterior upper pole right renal cyst. No urinary tract calculus or hydroureteronephrosis. There is fusiform infrarenal abdominal aortic aneurysm measuring up to 3.1 cm diameter, with extensiv e atherosclerotic plaque of the abdominal aorta. There is an abscess cavity or cavities along the left anterolateral aspect of the abdominal aorta beg inning just below the level of the left renal vein, continuing anterior superior and between the comm on iliac arteries. Terminating at the S1 level. There is a percutaneous left infraumbilical pigtail c atheter within the abscess cavity at the L5 level. There is mild improvement in size of the abscess c avity since 05/03/2022. Diverticulosis of the sigmoid colon. Normal appendix. No bowel obstruction or free intraperitoneal ai r is noted. There are some fluid containing small bowel segments with small bowel air-fluid levels co nsistent with mild adynamic ileus. IMPRESSION: Mild interval diminished size of left parasagittal retroperitoneal abscess cavity, with pigtail drainage catheter remaining in place the L5 level Reviewed, dictated and finalized at [facility]. Reviewed, dictated and finalized at location B. CING SPECIALIST
[2022-05-11 14:31] LABS: Estimated Glomerular Filt Rate > 60
== END ==
PROVIDERS: PCP Internal Medicine; Visit Provider Surgery
DX: K68.19 Other retroperitoneal abscess (principal); K57.21 Diverticulitis of large intestine with perforation and abscess with bleeding
CPT/HCPCS: 74177; Q9967

== ENCOUNTER → 2022-05-18 14:12 | Outpatient (CLI) | payer BC, SELFPAY ==
--- NOTE | ~2022-05-18 | CT_ITS ---
CT Abdomen and Pelvis with contrast. History: Abscess. Spiral CT of the abdomen and pelvis was performed after the administration of intravenous contrast. 1 00 cc of Omnipaque 350 was administered intravenously without complication. Dose reduction technique was used on this scan by utilizing automated exposure control and iterative reconstruction technique. The dose-length product (DLP) was 405.41 mGy-cm. COMPARISON: 05/11/2022 Findings: Scans through the lung bases demonstrate mild atelectatic change. The liver, spleen, pancreas, gallbladder, adrenals and kidneys are within normal limits. No evidence of aortic aneurysm. No lymphadenopathy is seen. There is no evidence of bowel obstruction. Percutaneous drainage catheter again present in the mid ab domen. There are small residual collection of gas along the course of the catheter and extending infe riorly to the sigmoid colon, compatible residual abscess/contained perforation. Fluid collection pres ent on prior exam is largely resolved. Wall thickening of the sigmoid colon is unchanged. Images through the pelvis were performed. Urinary bladder unremarkable. Prostate gland and seminal ve sicles are unremarkable. No ascites is seen. Impression: Elongated abscess in the craniocaudal direction is mildly improved from prior exam, percutaneous drai nage catheter in place. Multiloculated areas of gas collection are again present, however presented f luid is largely resolved. Findings are consistent with abscess or contained perforation related to un derlying sigmoid diverticulitis. Persistent mild wall thickening sigmoid colon. Reviewed, dictated and finalized at location [] N WEIGHER Impression: Elongated abscess in the craniocaudal direction is mildly improved from prior e xam, percutaneous drainage catheter in place. Multiloculated areas of gas colle ction are again present, however presented fluid is largely resolved. Findings are consistent with abscess or contained perforation related to underlying sigm oid diverticulitis. Persistent mild wall thickening sigmoid colon.
[2022-05-18 14:27] LABS: Estimated Glomerular Filt Rate > 60
== END ==
PROVIDERS: PCP Internal Medicine; Visit Provider Surgery
DX: K68.19 Other retroperitoneal abscess (principal); K57.21 Diverticulitis of large intestine with perforation and abscess with bleeding
CPT/HCPCS: 74177; Q9967

== ENCOUNTER → 2022-05-24 12:49 | Outpatient (CLI) | payer BC, SELFPAY ==
--- NOTE | ~2022-05-24 | CT_ITS ---
EXAMINATION: CT abdomen pelvis w con DATE: 05/24/2022 13:35 INDICATION: Follow-up of sigmoid diverticular abscess TECHNIQUE: Computed tomography (CT) of the abdomen and pelvis was performed with 100 CC Omnipaque 350 intravenous contrast. Automated exposure control and iterative reconstruction technique were employe d. Exam dose: 541.63 mGy-cm total exam DLP. COMPARISON: 05/18/2022 CT abdomen pelvis FINDINGS: There is interval decreased size of the elongated craniocaudal abscess cavity at the ivonne lateral aspect of the aorta and between the common iliac arteries. There is virtually complete resolu tion of any fluid within the cavity, with only air remaining within the cavity which is diminished in size since 05/18/2022, measuring up to approximately 1.6 cm maximal transverse dimension now compare d to up to 2.1 cm on 05/18/2022. Pigtail drainage catheter is unchanged in position. Minimal discoid atelectasis in the lower lung zones. Stable approximately 4 mm pleura-based opacity i n the posterolateral left lower lobe since 01/22/2017. Normal heart size. No pericardial or pleural effusion. Small sliding hiatal hernia. No hepatic, splenic, pancreatic, adrenal or suspicious renal space-occupying mass lesion. Small poste rior upper pole right renal cyst. No urinary tract calculus or hydroureteronephrosis. There is prosta te enlargement. The urinary bladder is unremarkable. Mild diverticulosis of the sigmoid colon. No bowel obstruction No free intraperitoneal air. No ascites. Mild fusiform infrarenal abdominal aortic aneurysm. No abdominal or pelvic lymphadenopathy. IMPRESSION: Further decreased size of largely air-containing abscess cavity with virtually no residu al fluid; pigtail drainage catheter remains Reviewed, dictated and finalized at [facility]. Reviewed, dictated and finalized at location A. TARY LOGISTICS SPECIALIST IMPRESSION: Further decreased size of largely air-containing abscess cavity wi th virtually no residual fluid; pigtail drainage catheter remains
[2022-05-24 13:23] LABS: Estimated Glomerular Filt Rate > 60
== END ==
PROVIDERS: PCP Surgery; Visit Provider Surgery
DX: K57.20 Diverticulitis of large intestine with perforation and abscess without bleeding (principal)
CPT/HCPCS: 74177; Q9967

== ENCOUNTER → 2022-05-31 10:50 | Outpatient (CLI) | payer BC, SELFPAY ==
--- NOTE | ~2022-05-31 | CT_ITS ---
CT Abdomen and Pelvis with contrast. History: Diverticulitis, abscess. Spiral CT of the abdomen and pelvis was performed after the administration of intravenous contrast. 1 00 cc of Omnipaque 350 was administered intravenously without complication. Dose reduction technique was used on this scan by utilizing automated exposure control and iterative reconstruction technique. The dose-length product (DLP) was 532.03 mGy-cm. COMPARISON: 05/24/2022 Findings: Scans through the lung bases demonstrate mild atelectatic change. The liver, spleen, pancreas, gallbladder, adrenals and kidneys are within normal limits. No evidence of aortic aneurysm. No lymphadenopathy is seen. There is no evidence of bowel obstruction. Mild wall thickening of the sigmoid colon again present. I rregular abscess extending from the sigmoid colon superiorly through the para-aortic region is again present, similar to prior exam. Percutaneous drainage catheter unchanged.. Images through the pelvis were performed. Urinary bladder unremarkable. Prostate gland and seminal ve sicles are unremarkable. No ascites is seen. Impression: Elongated abscess extending from the sigmoid colon superiorly through the para-aortic region is essen tially unchanged from prior exam. Stable percutaneous drainage catheter. Reviewed, dictated and finalized at location . ONNEL MONITOR Impression: Elongated abscess extending from the sigmoid colon superiorly through the para- aortic region is essentially unchanged from prior exam. Stable percutaneous kavitha inage catheter.
== END ==
PROVIDERS: PCP Surgery; Visit Provider Surgery
DX: K57.20 Diverticulitis of large intestine with perforation and abscess without bleeding (principal); K68.19 Other retroperitoneal abscess
CPT/HCPCS: 74177; Q9967

== ENCOUNTER 2022-05-31 11:14 | Outpatient (CLI) | payer BC, SELFPAY ==
[2022-05-31 20:11] LABS: Basophils Percent Auto 0.5 % (0.2-1.2); Eosinophils Absolute Auto 0.1 K/mm3 (0-0.3); Eosinophils Percent Auto 0.9 % (0-4.4); Hematocrit 41.6 % (42.0-52.0); Hemoglobin 12.7 g/dL (14.0-18.0); Immature Granulocyte Absolute 0.04 K/mm3 (0.00-0.031); Immature Granulocyte Percent A 0.5 % (0-0.5); Lymphocytes Absolute Auto 2.27 K/mm3 (0.9-3.2); Lymphocytes Percent Auto 26.5 % (18.3-44.2); Mean Corpuscular HGB Conc 30.5 g/dl (32-36); Mean Corpuscular Hemoglobin 27.6 pg (26-34); Mean Corpuscular Volume 90.4 fl (80-100); Mean Platelet Volume 8.9 fl (7.4-10.4); Monocytes Percent Auto 11.2 % (2.6-8.5); Neutrophils Absolute Auto 5.2 K/mm3 (1.3-6.7); Neutrophils Percent Auto 60.4 % (45.5-73.1); Platelet Count Result 345 k/mm3 (150-375); Red Cell Distribution Width 15.1 % (11.5-14.5); White Blood Count 8.6 K/mm3 (4.5-10.0)
[2022-05-31 21:37] LABS: Alanine Aminotransferase 63 U/L (6-50); Albumin Level 3.7 g/dL (3.5-5.1); Alkaline Phosphatase 114 U/L (38-126); Anion Gap 8 mmol/L (8-16); Aspartate Amino Transferase 53 U/L (17-59); Bilirubin,Total 0.5 mg/dL (0.2-1.3); Blood Urea Nitrogen 11 mg/dL (9-20); Calcium 8.6 mg/dL (8.4-10.2); Carbon Dioxide 26 mmol/L (22-30); Chloride 92 mmol/L (98-107); Estimated Glomerular Filt Rate > 60; Glucose 90 mg/dL (65-110); Potassium 5.2 mmol/L (3.4-5.0); Sodium 126 mmol/L (137-145)
== END 2022-05-31 11:15 | disposition home or self-care (01) ==
LOC: ANHGOSHLAB 11:15
PROVIDERS: PCP Surgery; Visit Provider Surgery
DX: K57.21 Diverticulitis of large intestine with perforation and abscess with bleeding (principal); K68.19 Other retroperitoneal abscess
CPT/HCPCS: 36415; 80053; 85025

== ENCOUNTER → 2022-06-14 08:23 | Outpatient (CLI) | payer BC, SELFPAY ==
--- NOTE | ~2022-06-14 | CT_ITS ---
EXAMINATION: CT abdomen pelvis w con DATE: 06/14/2022 08:53 INDICATION: Diverticulosis of the large intestine with retroperitoneal abscess per TECHNIQUE: Computed tomography (CT) of the abdomen and pelvis was performed with 100 mL Omnipaque-350 intravenous contrast. Automated exposure control and iterative reconstruction technique were employe d. The dose-length product was 466.72 mGy-cm. COMPARISON: 07/01/2021 FINDINGS: Lung bases are clear. Heart size is normal. No pericardial or pleural effusion. Small sliding-type hi atal hernia and/or wall thickening in the distal esophagus which could relate to reflux and esophagit is. Liver, gallbladder, spleen, pancreas, bilateral adrenal glands and kidneys are normal. Bladder is normal. No pathologically enlarged abdominal or pelvic lymphadenopathy. Mild thoracolumbar spondylos is. A percutaneous abscess drain remains within the caudal component of a primarily gas containing para-a ortic abscess which extends caudally from the level of the L2-L3 disc space the level of the L5-S1 di sc space. There is a residual small amount of fluid surrounding the loop of the catheter where the ca vity measures 2.2 x 1.2 cm. There is suggestion of a fistulous tract extending caudally from the absc ess cavity to the mid sigmoid colon where there is some residual wall thickening likely related to pe rforated diverticulitis. There is also a minimal amount of gas tracking along the catheter tract. No other abscess or free intraperitoneal gas or fluid. No inflammatory stranding surrounding several add itional diverticula along the sigmoid colon to suggest new region of diverticulitis. Small bowel and appendix are unremarkable with no obstruction. IMPRESSION: 1. . Devyn abscess drain remains within essentially unchanged elongated predominantly gas containing retroperitoneal abscess cavity extending along the anterior infrarenal aorta with likely persistent f istulous communication to the right sigmoid colon at the site of prior diverticulitis. 2. Small sliding-type hiatal hernia and/or wall thickening in the distal esophagus which may be relat ed to reflux esophagitis. Reviewed, dictated and finalized at location A. CREW MEMBER IMPRESSION: 1. . Devyn abscess drain remains within essentially unchanged elongated predomi nantly gas containing retroperitoneal abscess cavity extending along the anteri or infrarenal aorta with likely persistent fistulous communication to the right sigmoid colon at the site of prior diverticulitis. 2. Small sliding-type hiatal hernia and/or wall thickening in the distal esopha katya which may be related to reflux esophagitis.
== END ==
PROVIDERS: PCP Surgery; Visit Provider Surgery
DX: K57.20 Diverticulitis of large intestine with perforation and abscess without bleeding (principal); K68.19 Other retroperitoneal abscess; K44.9 Diaphragmatic hernia without obstruction or gangrene
CPT/HCPCS: 74177; Q9967

== ENCOUNTER 2022-06-14 08:47 | Outpatient (CLI) | payer BC, SELFPAY ==
[2022-06-14 19:35] LABS: Basophils Percent Auto 0.4 % (0.2-1.2); Eosinophils Absolute Auto 0.3 K/mm3 (0-0.3); Eosinophils Percent Auto 4.2 % (0-4.4); Hematocrit 37.3 % (42.0-52.0); Hemoglobin 11.9 g/dL (14.0-18.0); Immature Granulocyte Absolute 0.05 K/mm3 (0.00-0.031); Immature Granulocyte Percent A 0.7 % (0-0.5); Lymphocytes Absolute Auto 2.63 K/mm3 (0.9-3.2); Lymphocytes Percent Auto 35.4 % (18.3-44.2); Mean Corpuscular HGB Conc 31.9 g/dl (32-36); Mean Corpuscular Hemoglobin 27.5 pg (26-34); Mean Corpuscular Volume 86.1 fl (80-100); Mean Platelet Volume 8.9 fl (7.4-10.4); Monocytes Absolute Auto 0.8 K/mm3 (0.1-0.6); Monocytes Percent Auto 11.2 % (2.6-8.5); Neutrophils Absolute Auto 3.6 K/mm3 (1.3-6.7); Neutrophils Percent Auto 48.1 % (45.5-73.1); Platelet Count Result 432 k/mm3 (150-375); Red Blood Count 4.33 M/mm3 (4.6-6.20); Red Cell Distribution Width 14.8 % (11.5-14.5); White Blood Count 7.4 K/mm3 (4.5-10.0)
[2022-06-14 20:54] LABS: Alanine Aminotransferase 48 U/L (6-50); Albumin Level 3.6 g/dL (3.5-5.1); Alkaline Phosphatase 112 U/L (38-126); Anion Gap 8 mmol/L (8-16); Aspartate Amino Transferase 34 U/L (17-59); Bilirubin,Total 0.3 mg/dL (0.2-1.3); Blood Urea Nitrogen 12 mg/dL (9-20); Calcium 8.7 mg/dL (8.4-10.2); Carbon Dioxide 28 mmol/L (22-30); Chloride 96 mmol/L (98-107); Estimated Glomerular Filt Rate > 60; Glucose 74 mg/dL (65-110); Potassium 4.5 mmol/L (3.4-5.0); Sodium 132 mmol/L (137-145)
== END 2022-06-14 08:48 | disposition home or self-care (01) ==
LOC: ANHGOSHLAB 08:49
PROVIDERS: PCP Surgery; Visit Provider Surgery
DX: K68.19 Other retroperitoneal abscess (principal); K57.21 Diverticulitis of large intestine with perforation and abscess with bleeding
CPT/HCPCS: 36415; 80053; 85025

== ENCOUNTER 2022-06-21 11:36 | Outpatient (CLI) | payer BC, SELFPAY | END 2022-06-21 11:37 | disposition home or self-care (01) | PROVIDERS: PCP Internal Medicine; Visit Provider Surgery | DX: K57.20 Diverticulitis of large intestine with perforation and abscess without bleeding (principal) | CPT/HCPCS: 36415; 86850; 86900; 86901 ==

== ENCOUNTER 2022-06-27 17:22 | Inpatient (IN) | payer MEDICARE, BC, SELFPAY ==
--- NOTE | 2022-06-21 11:55 | PC.NURSE ---
PRE-OP INSTRUCTIONS, PLEASE READ CAREFULLY Report to the Outpatient Waiting Room, entrance under the green pavilion located off [facility], at time _0800_ on date _06/27/22_. Planned Procedure Time: _1000_. Time changes happen often and if your time is changed the preop area will call you the afternoon before. - You and your visitor will be asked to self-screen and do not enter if you have any COVID symptoms. - Only one visitor is requested with a max of two and NO children visitors are allowed at this time. - The patient visitor may be requested to leave or wait in car when not with patient due to distancing restrictions. - A mask is optional within the hospital. -VISITING HOURS 8AM-8PM Patients may have clear liquids (water, carbonated beverages, clear teas, apple juice) until 3 hours prior to surgery (0700 AM) with a maximum of 20 ounces. - No food from midnight until time of surgery Take the following medications with a SIP of water the morning of surgery: _PAIN MED IF NEEDED_ Medications to discontinue per ANESTHESIA - _EYE VITAMINS 3 DAYS PRIOR TO SURGERY, Date to take last dose 06/23/22__ Please no make-up, nail nepali, hairspray, perfume, deodorant, or body powder the day of surgery. No jewelry (including any body piercings) or valuables the day of surgery, leave them at home. Please take a shower or bath the night before, or the morning of, surgery with an antibacterial soap. Wear comfortable, loose fitting clothing. - Jewelry must be removed prior to entering the operating room. Rings and piercings that are not removed may be cut off. - The hospital will not accept responsibility for valuables. - Please leave all valuables, including medications, at home the day of surgery. If you are going home after surgery, a licensed dedicated driver must drive you home. - NO public transportation without another adult if you receive anesthesia. - We recommend that an adult stay with you for 24 hours following discharge. - We also recommend that you do not drive, make important decision, drink alcoholic beverages, or take any drugs that were not prescribed by your health care provider for at least 24 hours after your discharge time. Follow any additional instructions given to you from your surgeon. DIET, BOWEL PREP, PRE-OP ANTIBIOTICS, HIBICLENS SHOWER DAY BEFORE AND AM OF SURGERY If you or anyone in your household have experienced Covid symptoms in the past week, please notify your surgeon or the nurse liaison at the phone number below for possible testing. Instructions given to _PATIENT & SISTER (YURIDIA)_and asked if any additional questions and then verbalized understanding. Patient advised to call surgeon office or pre surgery nurse liaison [phone] if any additional questions.
[2022-06-21 12:26] VITALS: BP 94/56; PULSE 100; RESP 20; TEMP 37; O2SAT 100; BMI 22.0
[2022-06-27] VITALS (18 sets, daily range): BP systolic 121–142; BP diastolic 71–97; PULSE 83–102; RESP 12–20; TEMP 36.1–37.3; O2SAT 94–100; BMI 24.0
--- NOTE | ~2022-06-27 | XR_ITS ---
Supine portable view of the abdomen Clinical history: Postoperative ileus COMPARISON: 06/30/2022 Findings: Diffuse gaseous distention of large and small bowel are similar to prior exam. No definite free air. No abnormal mass lesion or calcification is seen. Osseous structures are intact. Impression: Diffuse ileus, essentially unchanged. Reviewed, dictated and finalized at [facility]. IFIED MIDWIFE Impression: Diffuse ileus, essentially unchanged.
--- NOTE | ~2022-06-27 | XR_ITS ---
EXAMINATION: XR abdomen/kub 1V DATE: 06/30/2022 10:04 INDICATION: Abdominal bloating and pain. Nausea and vomiting. TECHNIQUE: A supine view of the abdomen on 2 radiographs was obtained. COMPARISON: CT abdomen and pelvis 06/14/2022 FINDINGS: There are multiple dilated loops of small bowel. The colon is normal in caliber. There is a n anastomosis in the sigmoid colon. There are phleboliths in the pelvis. IMPRESSION: 1. Dilated small bowel, consistent with adynamic ileus. Reviewed, dictated and finalized at location A. ODUCTION ORDER PROCESSOR
--- NOTE | ~2022-06-27 | XR_ITS ---
XR abdomen/kub 1V 07/02/2022 05:59 Indication: Postop ileus Procedure: KUB Comparison: Comparison to multiple prior studies sequentially, with oldest reviewed study dated 02/2022. Findings: Dilated small bowel present throughout the abdomen. Gas is present in the colon and rectum. There are pelvic phleboliths. Evaluation for renal stones limited by bowel gas. No acute osseous abn ormality. Impression: 1: Diffusely dilated small bowel which may represent postoperative ileus or less likely partial small bowel obstruction. Reviewed, dictated and finalized at location A. [employer] Impression: 1: Diffusely dilated small bowel which may represent postoperative ileus or les s likely partial small bowel obstruction.
[2022-06-27] MEDS: ACETAMINOPHEN 500 MG TABLET 1000 MG PO ×3 (08:41→22:41)
[2022-06-27] MEDS: LACTATED RINGERS 1,000 ML 30 ML IV CONT ×2 (09:18→13:08)
[2022-06-27] MEDS: KETOROLAC 15 MG/ML VIAL (*BKC) IV PUSH (09:19)
--- NOTE | 2022-06-27 09:33 | WPDANESEPPF ---
Anes - Initial Pre Proc Eval Procedure: Operation Date: 06/27/22 10:00 Proposed Procedures p Hand Assisted Laparoscopic Sigmoid Colectomy, Possible Open - Teddy Summers DO Date/Time: 06/27/22 09:33 Surgeon: Teddy Summers DO Pre Op Diagnosis: diverticulitis with abscess Patient Data Age: 57 Gender: M Height: 1.7 m Weight: 64.9 kg Last Vital Signs Temp 98.5 F 06/27/22 08:23 Pulse 101 H 06/27/22 08:23 Resp 16 06/27/22 08:23 BP 142/90 H 06/27/22 08:23 Pulse Ox 98 06/27/22 08:23 O2 Del Method Room Air 06/27/22 08:23 Allergies Allergy/AdvReac Type Severity Reaction Status Date / Time Sulfa (Sulfonamide Allergy Mild Rash Verified 06/27/22 08:16 Antibiotics) vancomycin AdvReac Severe ACUTE Verified 06/27/22 08:16 RENAL FAILURE Home Medications Medication Instructions Recorded Confirmed Type acetaminophen 500 mg tablet 500 mg PO Q6H PRN Headache 02/25/20 06/27/22 History lisinopril 10 mg tablet 10 mg PO DAILY 02/25/20 06/27/22 History cetirizine 10 mg capsule (Zyrtec) 10 mg PO DAILY 02/06/22 06/27/22 History vitamin A-vitamin C-vit E-min 1 tablet PO DAILY 02/06/22 06/27/22 History tablet hydrocodone 5 mg-acetaminophen 325 1 tablet PO Q8H PRN pain #14 tabs 06/16/22 06/27/22 Rx mg tablet famotidine 20 mg tablet (Pepcid) 20 mg PO DAILY 06/21/22 06/27/22 History simvastatin 40 mg tablet 40 mg HS 06/21/22 06/27/22 History Patient hx anesthesia problems: none Family hx anesthesia problems: none Results Review: All pre-operative results and documents have been reviewed as part of the pre-operative evaluation. 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 History of repair of congenital anomaly of heart Family History Family History Mother Acute rheumatoid arthritis Sibling Cancer Father Carcinoma of colon Social History Social History Social History: he has no children and is single . He smokes marijuana and smokes a pack a cigarettes a day. The patient is disabled. He lives with his brother. Surrogate medical decision maker: Tania Sousa, sister. Code status: Full code. Smoking packs per day: 1 Smoking cigarettes per day: 20.0 Years smoked: 35 Smoking pack-years: 35.00 Smoking status: Former smoker Tobacco type: cigarettes Second hand tobacco smoke exposure: No Smoking end date: 04/21/22 Alcohol intake: never Drinks per week: 1 Alcohol use details: WAS 2 BEERS/MONTH - NONE SINCE 04/04/22 Substance use: current Substance use type: marijuana Other substance usage details: WAS SMOKING 2-3 JOINTS/DAY QUIT 04/21/22, NOW 10MG GUMMIE @ NOC FOR SLEEP Last use: 06/20/22 Lack of Transportation: No Lack of Food: Never True Current Housing: I Have Housing Concerned About Future Housing: No Difficulty Paying Gas/Electric Bills: No Difficulty Paying for Meds: No Currently Unemployed: No Education: Don't Know Difficulty w/ Childcare or Family Care: No Living arrangements: alone Additional living arrangements comments: STAYING WITH SISTER DAY BEFORE & AFTER RELEASED F
--- NOTE | 2022-06-27 09:34 | WPDHPUPDATE1 ---
History and Physical Update Update Date/Time: 06/27/22 09:34 History and Physical has been reviewed, including an updated exam of the patient. There are NO changes in the patient's condition. Risks, benefits, and alternatives have been discussed and questions answered. Patient agrees to proceed with procedure.
[2022-06-27] MEDS: ceFAZolin 2 GM/D5W 50 ML 2 GM/50 ML BAG IVPB (10:09)
[2022-06-27] MEDS: metroNIDAZOLE 500 MG/ISO 100ML 500 MG/100 ML BAG 100 MG IVPB (10:24)
--- NOTE | 2022-06-27 12:51 | W.PM.PROC2 ---
Procedure Note - Detailed Date of Procedure 06/27/22 Pre-op Diagnosis diverticulitis with abscess Post-op Diagnosis Same Procedure Performed Hand assisted laparoscopic sigmoid colectomy with colorectal anastomosis Surgeon Teddy Summers DO Boat Driver Dimitri Cortes MD Anesthesia General and Local (Exparel) Indications This is a 57 year old man who presented with a persistent diverticular abscess. He was initially found to have diverticulitis with a small abscess in April of 2022. This was initially treated with bowel rest and IV antibiotics. He eventually failed antibiotic treatment and required CT-guided drainage of the abscess on 05/04/2022. On subsequent CT, a persistent fistulous communication from the colon to the drain was evident. He continued to have scant purulence output from the drain as well. Multiple subsequent CTs showed improvement in the diverticulitis but still persistent fistulous tract. Discussions were made with the patient about treatment options and decision was made to proceed with hand assisted laparoscopic sigmoid colectomy, possible open. Findings Hand assisted laparoscopic sigmoid colectomy was performed. The drain had to be removed before prepping the patient as the drain site was right near where the hand port incision needed to be placed. The drain came out smoothly without any complications. Upon entering the abdomen, there was 1 adhesive band up to the abdominal wall where the drain had been placed. This came down with blunt dissection. Patient also then had 2 loops of small bowel that were adherent over the mesocolon near where the abscess had been. Small bowel was able to be dissected free and there did not appear to be any involvement with the small bowel itself. Most of the adhesions were to the small bowel mesentery. I then was able to identify the area where the retroperitoneal abscess had been. The mesocolon in this region was still very indurated chronically thickened. The sigmoid colon itself appeared soft and healthy. The area of induration appeared very thick right around the inferior mesenteric artery, but with careful laparoscopic dissection and blunt dissection with finger fracture technique, was able to identify the inferior mesenteric artery and performed a high ligation. The proximal descending colon all appeared healthy and viable. The upper rectum also appeared healthy and viable. Indocyanine green was given intravenously after the sigmoid colon was completely dissected free. There appeared to be adequate vascular perfusion to the proximal and distal margins. The sigmoid colon was resected. A 28 mm EEA stapler was chosen to perform the anastomosis. After completing the anastomosis, Leak check showed no evidence of air bubbles leaking from the anastomosis. The sigmoid colon was sent to the lab for pathology. Dr. Cortes assisted with the colorectal anastomosis by advancing the stapler up to the rectal staple line and firing the stapler from below. He also performed the rigid proctoscopy to help with the anastomotic leak check. Description of Procedure Procedure as well as risks benefits and alternatives were explained to the patient. Written consent was obtained and placed in chart prior to procedure. Patient was brought back to surgical suite. He was placed supine on operating table. Time-out was done to confirm patient procedure. He was then intubated by the anesthesia department. He was re-positioned to modified lithotomy position. His abdomen was prepped and draped in sterile fashion using chlorhexidine prep. His rectum was irrigated with Betadine and his perirectal area was prepped and draped in sterile fashion using Betadine prep. A 7 centimeter vertical incision was made around the umbilicus using a 15 blade scalpel. Electrocautery was used for hemostasis and for dissection down through Walter's fascia. The linea alba was then incised using electrocautery. The peritoneum
--- NOTE | 2022-06-27 14:05 | SUR.PHASEI ---
Patient meets PACU discharge criteria, unit bed unavailable at this time. Patient placed in extended recovery status.
--- NOTE | 2022-06-27 16:28 | SUR.PHASEI ---
Dr. Summers notified of patient's discomfort from monique catheter and patient's request to have monique catheter removed. Dr. Summers ordered for catheter to be removed along with order for PRN bladder scanning if patient has retention issues or trouble voiding.
--- NOTE | 2022-06-27 17:35 | ADMGEN ---
This patient, James Ku, was admitted to 2 Medical Room 260-01. Patient/family oriented to hospital policies and general routines including ID bracelet, bed and alarms, visiting hours, pain management, procedures, bathroom and other care routines, personal items, smoking policy, room service/diet, and visiting hours. Information on how to activate the Rapid Response Team has been discussed. Patient/Family are encouraged to report perceived risks to care and to ask questions if they do not understand what they are told or what they should do.
[2022-06-27] MEDS: LACTATED RINGERS 1,000 ML 100 ML IV CONT (18:13)
[2022-06-27] MEDS: SIMVASTATIN 20 MG TABLET 40 MG PO (20:42)
[2022-06-27] MEDS: oxyCODONE HCL (*CRX) 5 MG TAB IR 10 MG PO (20:42)
[2022-06-27] MEDS: MORPHINE SULFATE (*CRX) 2 MG/ML INJ IV PUSH (22:41)
[2022-06-28] VITALS (7 sets, daily range): BP systolic 110–118; BP diastolic 70–80; PULSE 83–90; RESP 12–20; TEMP 36.6–37.1; O2SAT 95–99
[2022-06-28] MEDS: LACTATED RINGERS 1,000 ML 100 ML IV CONT (04:37)
[2022-06-28] MEDS: oxyCODONE HCL (*CRX) 5 MG TAB IR 10 MG PO ×2 (04:38→20:47)
[2022-06-28] MEDS: ACETAMINOPHEN 500 MG TABLET 1000 MG PO ×4 (04:38→23:19)
[2022-06-28] MEDS: MORPHINE SULFATE (*CRX) 2 MG/ML INJ IV PUSH (05:42)
[2022-06-28 06:39] LABS: Basophils Percent Auto 0.1 % (0.2-1.2); Hematocrit 34.7 % (42.0-52.0); Hemoglobin 10.9 g/dL (14.0-18.0); Immature Granulocyte Absolute 0.04 K/mm3 (0.00-0.031); Immature Granulocyte Percent A 0.4 % (0-0.5); Lymphocytes Absolute Auto 1.77 K/mm3 (0.9-3.2); Lymphocytes Percent Auto 18.8 % (18.3-44.2); Mean Corpuscular HGB Conc 31.4 g/dl (32-36); Mean Corpuscular Hemoglobin 27.9 pg (26-34); Mean Platelet Volume 9.2 fl (7.4-10.4); Monocytes Absolute Auto 0.8 K/mm3 (0.1-0.6); Monocytes Percent Auto 8.5 % (2.6-8.5); Neutrophils Absolute Auto 6.8 K/mm3 (1.3-6.7); Neutrophils Percent Auto 72.2 % (45.5-73.1); Platelet Count Result 302 k/mm3 (150-375); Red Cell Distribution Width 15.9 % (11.5-14.5); White Blood Count 9.4 K/mm3 (4.5-10.0)
[2022-06-28 06:42] LABS: Anion Gap 3 mmol/L (8-16); Blood Urea Nitrogen 8 mg/dL (9-20); Calcium 8.5 mg/dL (8.4-10.2); Carbon Dioxide 26 mmol/L (22-30); Chloride 103 mmol/L (98-107); Estimated CRCL calculation 93 ml/min; Estimated Glomerular Filt Rate > 60; Glucose 114 mg/dL (65-110); Sodium 132 mmol/L (137-145)
[2022-06-28] MEDS: ENOXAPARIN 40 MG/0.4 ML SYRINGE SUB-Q (08:18)
[2022-06-28] MEDS: FAMOTIDINE 20 MG TABLET PO (08:19)
[2022-06-28] MEDS: lisinopriL 10 MG TABLET PO (08:19)
[2022-06-28] MEDS: LORATADINE 10 MG TABLET PO (08:20)
[2022-06-28] MEDS: oxyCODONE HCL (*CRX) 5 MG TAB IR PO ×2 (08:20→16:52)
--- NOTE | 2022-06-28 12:29 | PM.PNGS ---
Progress Note: A&P Assessment and Plan (1) Abscess of sigmoid colon due to diverticulitis: Code(s): K57.20 - Diverticulitis of large intestine with perforation and abscess without bleeding Status: Acute Assessment and Plan: Continue clear liquids today, await return of bowel function Increase activity Subjective Subjective Date/Time Seen: 06/28/22 12:29 Interval history: Doing well on postop day 1. Minimal flatus so far. No BMs. Pain controlled. Exam GI: GI Palp: Yes Soft to palpation and Yes Tenderness to palpation present (GI) (incisional) Auscultation: Hypoactive bowel sounds present Objective Data Vital Signs Vital Signs: Vital Signs - 24 hr 06/27/22 13:08 06/27/22 13:20 06/27/22 13:35 Temperature 36.8 C Pulse Rate 89 85 86 Respiratory Rate 12 12 Blood Pressure 141/93 H 135/90 Pulse Oximetry 100 100 100 Oxygen Delivery Simple Face Mask Simple Face Mask Simple Face Mask Oxygen Flow Rate 6 6 6 06/27/22 13:50 06/27/22 14:05 06/27/22 14:20 Temperature 36.1 C L 36.2 C L 36.4 C Pulse Rate 93 89 83 Respiratory Rate 14 12 14 Blood Pressure 131/81 125/88 124/83 Pulse Oximetry 100 98 98 Oxygen Delivery Room Air Room Air Room Air Oxygen Flow Rate 06/27/22 14:50 06/27/22 15:20 06/27/22 15:50 Temperature 36.3 C L 36.3 C L Pulse Rate 86 94 95 Respiratory Rate 14 19 18 Blood Pressure 121/85 127/89 124/84 Pulse Oximetry 100 98 97 Oxygen Delivery Room Air Room Air Room Air Oxygen Flow Rate 06/27/22 16:20 06/27/22 16:50 06/27/22 17:20 Temperature Pulse Rate 92 96 95 Respiratory Rate 16 16 16 Blood Pressure 127/85 125/71 134/97 H Pulse Oximetry 97 98 Oxygen Delivery Room Air Room Air Room Air Oxygen Flow Rate 06/27/22 17:35 06/27/22 17:35 06/27/22 17:50 Temperature 36.9 C 37.2 C Pulse Rate 94 94 Respiratory Rate 16 16 16 Blood Pressure 132/87 137/90 Pulse Oximetry 94 99 98 Oxygen Delivery Room Air Oxygen Flow Rate 06/27/22 18:20 06/27/22 19:20 06/27/22 23:07 Temperature 37.3 C 36.8 C 37.2 C Pulse Rate 92 90 102 H Respiratory Rate 16 16 20 Blood Pressure 137/87 125/84 141/86 H Pulse Oximetry 99 98 98 Oxygen Delivery Oxygen Flow Rate 06/28/22 03:45 06/28/22 06:55 06/28/22 08:20 Temperature 36.6 C 37.1 C Pulse Rate 89 88 Respiratory Rate 18 18 Blood Pressure 112/71 113/70 113/71 Pulse Oximetry 95 95 Oxygen Delivery Oxygen Flow Rate 06/28/22 10:22 06/28/22 08:00 Temperature 36.7 C Pulse Rate 83 Respiratory Rate 12 Blood Pressure 110/70 Pulse Oximetry 95 Oxygen Delivery Room Air Oxygen Flow Rate Intake/Output Intake/Output: Intake & Output 06/25/22 06/26/22 06/27/22 06/28/22 23:59 23:59 23:59 23:59 Intake Total 1000 1850 Output Total 490 2400 Balance 510 -550 Meds/Results Medications: Active Medications Generic Name Dose Route Start Last Admin Trade Name Freq PRN Reason Stop Dose Admin Acetaminophen 1,000 mg 06/27/22 17:22 06/28/22 04:38 Acetaminophen 500 Mg Tablet PO 1,000 mg Q6H LAYA Administration Enoxaparin Sodium 40 mg 06/28/22 09:00 06/28/22 08:18 Enoxaparin 40 Mg/0.4 Ml Syringe SUB-Q 40 mg DAILY LAYA Administration Famotidine 20 mg 06/28/22 09:00 06/28/22 08:19 Famotidine 20 Mg Tablet PO 20 mg DAILY LAYA Administration Lisinopril 10 mg 06/28/22 09:00 06/28/22 08:19 Lisinopril 10 Mg Tablet PO 10 mg DAILY LAYA Administration Loratadine 10 mg 06/28/22 09:00 06/28/22 08:20 Loratadine 10 Mg Tablet PO 07/28/22 08:59 10 mg DAILY LAYA Administration Morphine Sulfate 2 mg 06/27/22 17:22 06/28/22 05:42 Morphine Sulfate (*Crx) 2 Mg/Ml Inj IV PUSH 2 mg Q2H PRN Administration Pain Rated 4-6 Morphine Sulfate 4 mg 06/27/22 17:22 Morphine Sulfate (*Crx) 4 Mg/Ml Inj IV PUSH Q2H PRN Pain Rated 7-10 Ondansetron HCl 4 mg 06/27/22 17:22 Ondansetron Inj 4 Mg/2 Ml Vial IV PUSH Q4H AR
[2022-06-28] MEDS: SIMVASTATIN 20 MG TABLET 40 MG PO (20:15)
[2022-06-29 00:40] VITALS: BP 148/97; PULSE 85; RESP 20; TEMP 36.8; O2SAT 99
[2022-06-29] MEDS: oxyCODONE HCL (*CRX) 5 MG TAB IR 10 MG PO (00:52)
[2022-06-29] MEDS: ACETAMINOPHEN 500 MG TABLET 1000 MG PO ×4 (05:13→22:58)
[2022-06-29 05:30] VITALS: BP 158/98; PULSE 83; RESP 18; TEMP 36.8; O2SAT 96
[2022-06-29 05:38] LABS: Hematocrit 34.5 % (42.0-52.0); Mean Corpuscular HGB Conc 31.9 g/dl (32-36); Mean Corpuscular Hemoglobin 27.6 pg (26-34); Mean Corpuscular Volume 86.5 fl (80-100); Mean Platelet Volume 8.5 fl (7.4-10.4); Platelet Count Result 287 k/mm3 (150-375); Red Blood Count 3.99 M/mm3 (4.6-6.20); Red Cell Distribution Width 15.9 % (11.5-14.5); White Blood Count 8.6 K/mm3 (4.5-10.0)
[2022-06-29 05:53] LABS: Anion Gap 3 mmol/L (8-16); Blood Urea Nitrogen 7 mg/dL (9-20); Calcium 8.3 mg/dL (8.4-10.2); Carbon Dioxide 30 mmol/L (22-30); Chloride 100 mmol/L (98-107); Estimated CRCL calculation 82 ml/min; Estimated Glomerular Filt Rate > 60; Glucose 89 mg/dL (65-110); Potassium 3.7 mmol/L (3.4-5.0); Sodium 133 mmol/L (137-145)
[2022-06-29 09:00] VITALS: BP 146/96; PULSE 93
[2022-06-29] MEDS: FAMOTIDINE 20 MG TABLET PO (09:00)
[2022-06-29] MEDS: ENOXAPARIN 40 MG/0.4 ML SYRINGE SUB-Q (09:00)
[2022-06-29] MEDS: lisinopriL 10 MG TABLET PO (09:00)
[2022-06-29] MEDS: LORATADINE 10 MG TABLET PO (09:00)
[2022-06-29 14:00] VITALS: BP 124/86; PULSE 90; RESP 18; TEMP 36.6; O2SAT 99
[2022-06-29] MEDS: oxyCODONE HCL (*CRX) 5 MG TAB IR PO ×2 (14:11→20:52)
[2022-06-29] MEDS: DICLOFENAC SODIUM 1% 100 GM GEL (*BKC) 1 APPLIC TOPICAL ×2 (16:17→20:52)
--- NOTE | 2022-06-29 17:37 | PM.PNGS ---
Progress Note: A&P Assessment and Plan (1) Abscess of sigmoid colon due to diverticulitis: Code(s): K57.20 - Diverticulitis of large intestine with perforation and abscess without bleeding Status: Acute Assessment and Plan: s/p KALPANA sigmoid colectomy 06/27 Await return of bowel function Increase activity Continue clear liquids today. Subjective Subjective Date/Time Seen: 06/29/22 17:37 Interval history: A little more bloated today. No nausea or vomiting. Not feeling like advancing diet yet. Scant BM and a little Flatus. Pain controlled. Exam GI: Inspection: distended and incision (intact with glue) GI Palp: Yes Tenderness to palpation present (GI) (incisional), No Guarding due to palpation present (GI) and No Rebound tenderness present Auscultation: Hypoactive bowel sounds present Objective Data Vital Signs Vital Signs: Vital Signs - 24 hr 06/28/22 20:00 06/28/22 20:00 06/29/22 00:40 Temperature 36.9 C 36.8 C Pulse Rate 90 87 85 Respiratory Rate 18 20 20 Blood Pressure 114/79 148/97 H Pulse Oximetry 98 99 99 Oxygen Delivery Room Air 06/29/22 05:30 06/29/22 09:00 06/29/22 09:06 Temperature 36.8 C Pulse Rate 83 93 Respiratory Rate 18 Blood Pressure 158/98 H 146/96 H Pulse Oximetry 96 Oxygen Delivery Room Air 06/29/22 14:00 Temperature 36.6 C Pulse Rate 90 Respiratory Rate 18 Blood Pressure 124/86 Pulse Oximetry 99 Oxygen Delivery Intake/Output Intake/Output: Intake & Output 06/26/22 06/27/22 06/28/22 06/29/22 23:59 23:59 23:59 23:59 Intake Total 1000 3400 1300 Output Total 490 4125 1800 Balance 783 -536 -352 Meds/Results Medications: Active Medications Generic Name Dose Route Start Last Admin Trade Name Freq PRN Reason Stop Dose Admin Acetaminophen 1,000 mg 06/29/22 17:00 06/29/22 16:17 Acetaminophen 500 Mg Tablet PO 1,000 mg Q6H LAYA Administration Diclofenac Sodium 1 applic 06/29/22 17:00 06/29/22 16:17 Diclofenac Sodium 1% 100 Gm Gel (*Bkc) TOPICAL 1 applic QID LAYA Administration Enoxaparin Sodium 40 mg 06/28/22 09:00 06/29/22 09:00 Enoxaparin 40 Mg/0.4 Ml Syringe SUB-Q 40 mg DAILY LAYA Administration Famotidine 20 mg 06/28/22 09:00 06/29/22 09:00 Famotidine 20 Mg Tablet PO 20 mg DAILY LAYA Administration Lisinopril 10 mg 06/28/22 09:00 06/29/22 09:00 Lisinopril 10 Mg Tablet PO 10 mg DAILY LAYA Administration Loratadine 10 mg 06/28/22 09:00 06/29/22 09:00 Loratadine 10 Mg Tablet PO 07/28/22 08:59 10 mg DAILY LAYA Administration Morphine Sulfate 2 mg 06/27/22 17:22 06/28/22 05:42 Morphine Sulfate (*Crx) 2 Mg/Ml Inj IV PUSH 2 mg Q2H PRN Administration Pain Rated 4-6 Morphine Sulfate 4 mg 06/27/22 17:22 Morphine Sulfate (*Crx) 4 Mg/Ml Inj IV PUSH Q2H PRN Pain Rated 7-10 Ondansetron HCl 4 mg 06/27/22 17:22 Ondansetron Inj 4 Mg/2 Ml Vial IV PUSH Q4H PRN Nausea And Vomiting Oxycodone HCl 5 mg 06/27/22 17:22 06/29/22 14:11 Oxycodone Hcl (*Crx) 5 Mg Tab Ir PO 5 mg Q4H PRN Administration Pain Rated 4-6 Oxycodone HCl 10 mg 06/27/22 17:22 06/29/22 00:52 Oxycodone Hcl (*Crx) 5 Mg Tab Ir PO 10 mg Q4H PRN Administration Pain Rated 7-10 Simvastatin 40 mg 06/27/22 21:00 06/28/22 20:15 Simvastatin 20 Mg Tablet PO 40 mg HS LAYA Administration Labs Labs: Laboratory Results - last 24 hr 06/29/22 06/29/22 05:28 05:28 WBC 8.6 RBC 3.99 L Hgb 11.0 L Hct 34.5 L MCV 86.5 MCH 27.6 MCHC 31.9 L RDW 15.9 H Plt Count 287 MPV 8.5 Sodium 133 L Potassium 3.7 Chloride 100 Carbon Dioxide 30 Anion Gap 3 L BUN 7 L Creatinine 0.80 Estim Creat Clear Calc 82 Estimated GFR > 60 Glucose 89 Calcium 8.3 L
[2022-06-29 20:00] VITALS: PULSE 91; RESP 16; O2SAT 96
[2022-06-29] MEDS: SIMVASTATIN 20 MG TABLET 40 MG PO (20:52)
[2022-06-29 21:44] VITALS: BP 138/92; PULSE 91; RESP 16; TEMP 36.9; O2SAT 96
[2022-06-30] MEDS: MORPHINE SULFATE (*CRX) 4 MG/ML INJ IV PUSH ×2 (01:12→11:28)
[2022-06-30] MEDS: ONDANSETRON INJ 4 MG/2 ML VIAL IV PUSH (01:12)
[2022-06-30] MEDS: ACETAMINOPHEN 500 MG TABLET 1000 MG PO (05:15)
[2022-06-30 05:31] LABS: Mean Corpuscular HGB Conc 31.6 g/dl (32-36); Mean Corpuscular Hemoglobin 27.7 pg (26-34); Mean Corpuscular Volume 87.8 fl (80-100); Mean Platelet Volume 8.6 fl (7.4-10.4); Platelet Count Result 317 k/mm3 (150-375); Red Blood Count 4.33 M/mm3 (4.6-6.20); Red Cell Distribution Width 15.8 % (11.5-14.5); White Blood Count 9.8 K/mm3 (4.5-10.0)
[2022-06-30 05:41] LABS: Anion Gap 5 mmol/L (8-16); Blood Urea Nitrogen 8 mg/dL (9-20); Calcium 8.6 mg/dL (8.4-10.2); Carbon Dioxide 29 mmol/L (22-30); Chloride 101 mmol/L (98-107); Estimated CRCL calculation 82 ml/min; Estimated Glomerular Filt Rate > 60; Glucose 93 mg/dL (65-110); Potassium 4.3 mmol/L (3.4-5.0); Sodium 135 mmol/L (137-145)
[2022-06-30 06:00] VITALS: BP 139/89; PULSE 94; RESP 16; TEMP 36.4; O2SAT 96
[2022-06-30] MEDS: DICLOFENAC SODIUM 1% 100 GM GEL (*BKC) 1 APPLIC TOPICAL ×4 (08:09→20:09)
[2022-06-30] MEDS: FAMOTIDINE 20 MG TABLET PO (08:09)
[2022-06-30] MEDS: lisinopriL 10 MG TABLET PO (08:09)
[2022-06-30] MEDS: ENOXAPARIN 40 MG/0.4 ML SYRINGE SUB-Q (08:09)
[2022-06-30] MEDS: LORATADINE 10 MG TABLET PO (08:11)
--- NOTE | 2022-06-30 10:26 | PM.PNGS ---
Progress Note: A&P Assessment and Plan (1) Postoperative ileus: Code(s): K91.89 - Other postprocedural complications and disorders of digestive system; K56.7 - Ileus, unspecified Status: Acute Assessment and Plan: Patient not having much bowel function yet and now vomiting. I reviewed KUB. Will place NG today. Start PPN for IV nutrition until bowel function returns. WBC normal and afebrile. Will get further imaging if there is any other change in status. (2) Abscess of sigmoid colon due to diverticulitis: Code(s): K57.20 - Diverticulitis of large intestine with perforation and abscess without bleeding Status: Acute Subjective Subjective Date/Time Seen: 06/30/22 10:26 Interval history: More bloating today. Also vomited and is having dry heaves. Abdominal pain a little worse too. No fevers. Minimal flatus. No BM. Objective Data Vital Signs Vital Signs: Vital Signs - 24 hr 06/29/22 14:00 06/29/22 21:44 06/29/22 20:00 Temperature 36.6 C 36.9 C Pulse Rate 90 91 91 Respiratory Rate 18 16 16 Blood Pressure 124/86 138/92 H Pulse Oximetry 99 96 96 Oxygen Delivery Room Air 06/30/22 06:00 Temperature 36.4 C Pulse Rate 94 Respiratory Rate 16 Blood Pressure 139/89 Pulse Oximetry 96 Oxygen Delivery Intake/Output Intake/Output: Intake & Output 06/27/22 06/28/22 06/29/22 06/30/22 23:59 23:59 23:59 23:59 Intake Total 1000 3400 1850 300 Output Total 490 4125 1800 Balance 510 -725 50 300 Meds/Results Medications: Active Medications Generic Name Dose Route Start Last Admin Trade Name Freq PRN Reason Stop Dose Admin Acetaminophen 1,000 mg 06/29/22 17:00 06/30/22 05:15 Acetaminophen 500 Mg Tablet PO 1,000 mg Q6H LAYA Administration Diclofenac Sodium 1 applic 06/29/22 17:00 06/30/22 08:09 Diclofenac Sodium 1% 100 Gm Gel (*Bkc) TOPICAL 1 applic QID LAYA Administration Enoxaparin Sodium 40 mg 06/28/22 09:00 06/30/22 08:09 Enoxaparin 40 Mg/0.4 Ml Syringe SUB-Q 40 mg DAILY LAYA Administration Famotidine 20 mg 06/28/22 09:00 06/30/22 08:09 Famotidine 20 Mg Tablet PO 20 mg DAILY LAYA Administration Lisinopril 10 mg 06/28/22 09:00 06/30/22 08:09 Lisinopril 10 Mg Tablet PO 10 mg DAILY LAYA Administration Loratadine 10 mg 06/28/22 09:00 06/30/22 08:11 Loratadine 10 Mg Tablet PO 07/28/22 08:59 10 mg DAILY LAYA Administration Morphine Sulfate 2 mg 06/27/22 17:22 06/28/22 05:42 Morphine Sulfate (*Crx) 2 Mg/Ml Inj IV PUSH 2 mg Q2H PRN Administration Pain Rated 4-6 Morphine Sulfate 4 mg 06/27/22 17:22 06/30/22 01:12 Morphine Sulfate (*Crx) 4 Mg/Ml Inj IV PUSH 4 mg Q2H PRN Administration Pain Rated 7-10 Ondansetron HCl 4 mg 06/27/22 17:22 06/30/22 01:12 Ondansetron Inj 4 Mg/2 Ml Vial IV PUSH 4 mg Q4H PRN Administration Nausea And Vomiting Oxycodone HCl 5 mg 06/27/22 17:22 06/29/22 20:52 Oxycodone Hcl (*Crx) 5 Mg Tab Ir PO 5 mg Q4H PRN Administration Pain Rated 4-6 Oxycodone HCl 10 mg 06/27/22 17:22 06/29/22 00:52 Oxycodone Hcl (*Crx) 5 Mg Tab Ir PO 10 mg Q4H PRN Administration Pain Rated 7-10 Simvastatin 40 mg 06/27/22 21:00 06/29/22 20:52 Simvastatin 20 Mg Tablet PO 40 mg HS LAYA Administration Radiology Results: ITS Impressions Abdomen X-Ray 06/30/22 10:06 IMPRESSION: 1. Dilated small bowel, consistent with adynamic ileus. Labs Labs: Laboratory Results - last 24 hr 06/30/22 06/30/22 05:17 05:17 WBC 9.8 RBC 4.33 L Hgb 12.0 L Hct 38.0 L MCV 87.8 MCH 27.7 MCHC 31.6 L RDW 15.8 H Plt Count 317 MPV 8.6 Sodium 135 L Potassium 4.3 Chloride 101 Carbon Dioxide 29 Anion Gap 5 L BUN 8 L Creatinine 0.80 Estim Creat Clear Calc 82 Estimated GFR > 60 Glucose 93 Calcium 8.6
[2022-06-30 12:16] VITALS: BMI 24.3
[2022-06-30] MEDS: FAT EMULSIONS IV 20% 250 ML 20.83 ML IVPB (12:36)
[2022-06-30] MEDS: AMINO ACIDS 4.25%/D5W/LYTES/CA 2,000 ML 100 ML IV CONT (12:40)
[2022-06-30 13:45] LABS: Glucose Point of Care 113 mg/dl (65-105)
[2022-06-30 13:52] VITALS: BP 123/84; PULSE 105; RESP 18; TEMP 37; O2SAT 95
--- NOTE | 2022-06-30 14:34 | PC.NURSE ---
On 06/30/22, the student, [Soraya Luther], provided care and completed [facility] documentation on this patient. I have reviewed the student's documentation and agree with the findings.
[2022-06-30 16:11] VITALS: O2SAT 92
[2022-06-30 20:00] VITALS: PULSE 105; RESP 18; O2SAT 92
[2022-06-30] MEDS: MORPHINE SULFATE (*CRX) 2 MG/ML INJ IV PUSH ×2 (20:09→22:18)
[2022-06-30 21:45] VITALS: BP 127/86; PULSE 94; RESP 16; TEMP 36.5; O2SAT 96
[2022-07-01 00:12] LABS: Glucose Point of Care 119 mg/dl (65-105)
[2022-07-01 06:00] VITALS: BP 132/88; PULSE 85; RESP 16; TEMP 36.6; O2SAT 94
[2022-07-01] MEDS: AMINO ACIDS 4.25%/D5W/LYTES/CA 2,000 ML 100 ML IV CONT (06:28)
[2022-07-01] MEDS: MORPHINE SULFATE (*CRX) 2 MG/ML INJ IV PUSH (06:31)
[2022-07-01 06:34] LABS: Anion Gap 4 mmol/L (8-16); Blood Urea Nitrogen 13 mg/dL (9-20); Calcium 8.3 mg/dL (8.4-10.2); Carbon Dioxide 30 mmol/L (22-30); Chloride 102 mmol/L (98-107); Estimated CRCL calculation 93 ml/min; Estimated Glomerular Filt Rate > 60; Glucose 103 mg/dL (65-110); Phosphorus 4.5 mg/dL (2.5-4.5); Sodium 136 mmol/L (137-145); Triglycerides 148 mg/dL (<150)
[2022-07-01 06:46] LABS: Glucose Point of Care 107 mg/dl (65-105)
[2022-07-01] MEDS: DICLOFENAC SODIUM 1% 100 GM GEL (*BKC) 1 APPLIC TOPICAL ×3 (08:48→19:21)
[2022-07-01] MEDS: ENOXAPARIN 40 MG/0.4 ML SYRINGE SUB-Q (08:49)
[2022-07-01] MEDS: FAT EMULSIONS IV 20% 250 ML 20.83 ML IVPB (09:39)
[2022-07-01] MEDS: MAG HYDROX/AL HYDROX/SIMETH 30 ML UDC PO (10:56)
[2022-07-01 12:26] LABS: Glucose Point of Care 116 mg/dl (65-105)
--- NOTE | 2022-07-01 12:57 | PM.PNGS ---
Progress Note: A&P Assessment and Plan (1) Abscess of sigmoid colon due to diverticulitis: Code(s): K57.20 - Diverticulitis of large intestine with perforation and abscess without bleeding Status: Acute Assessment and Plan: Starting to improve. Started Maalox to help with gas today. Continue PPN one more day. Will start full liquids today. (2) Postoperative ileus: Code(s): K91.89 - Other postprocedural complications and disorders of digestive system; K56.7 - Ileus, unspecified Status: Acute Subjective Subjective Date/Time Seen: 07/01/22 12:57 Interval history: Bowels moving and passing a lot more flatus. Patient refused NG yesterday since his bowels started moving and he felt a little better. Pain improved today. No bloating or nausea. Exam GI: Inspection: incision (intact with glue) GI Palp: Yes Soft to palpation, No Tenderness to palpation present (GI) and No Guarding due to palpation present (GI) Other: Less distended today Objective Data Vital Signs Vital Signs: Vital Signs - 24 hr 06/30/22 13:52 06/30/22 16:11 06/30/22 20:00 Temperature 37.0 C Pulse Rate 105 H 105 H Respiratory Rate 18 18 Blood Pressure 123/84 Pulse Oximetry 95 92 92 Oxygen Delivery Room Air Room Air 06/30/22 21:45 07/01/22 06:00 07/01/22 07:45 Temperature 36.5 C 36.6 C Pulse Rate 94 85 Respiratory Rate 16 16 Blood Pressure 127/86 132/88 Pulse Oximetry 96 94 Oxygen Delivery Room Air Intake/Output Intake/Output: Intake & Output 06/28/22 06/29/22 06/30/22 07/01/22 23:59 23:59 23:59 23:59 Intake Total 3400 3448 734 1437 Output Total 4125 1800 700 750 Balance -725 50 -40 1500 Meds/Results Medications: Active Medications Generic Name Dose Route Start Last Admin Trade Name Freq PRN Reason Stop Dose Admin Acetaminophen 1,000 mg 06/29/22 17:00 06/30/22 05:15 Acetaminophen 500 Mg Tablet PO 1,000 mg Q6H LAYA Administration Al Hydrox/Mg Hydrox/Simethicone 30 ml 07/01/22 09:18 Mag Hydrox/Al Hydrox/Simeth 30 Ml Udc PO Q6H PRN Indigestion Diclofenac Sodium 1 applic 06/29/22 17:00 07/01/22 08:48 Diclofenac Sodium 1% 100 Gm Gel (*Bkc) TOPICAL 1 applic QID LAYA Administration Enoxaparin Sodium 40 mg 06/28/22 09:00 07/01/22 08:49 Enoxaparin 40 Mg/0.4 Ml Syringe SUB-Q 40 mg DAILY LAYA Administration Famotidine 20 mg 06/28/22 09:00 06/30/22 08:09 Famotidine 20 Mg Tablet PO 20 mg DAILY LAYA Administration Dextrose 1,000 mls @ 50 mls/hr 06/30/22 10:24 Dextrose 10% IV CONT .Q20H PRN if PN is interrupted Amino Acids/Electrolytes/Dextrose 2,000 mls @ 100 mls/hr 06/30/22 10:25 07/01/22 06:28 Clinimix E 4.25%/5% Solution IV CONT 100 mls/hr .Q20H LAYA Administration Protocol Fat Emulsion Intravenous 250 mls @ 20.833 mls/hr 06/30/22 10:25 07/01/22 09:39 Lipids 20% IVPB 20.83 mls/hr Q24H LAYA Administration Lisinopril 10 mg 06/28/22 09:00 06/30/22 08:09 Lisinopril 10 Mg Tablet PO 10 mg DAILY LAYA Administration Loratadine 10 mg 06/28/22 09:00 06/30/22 08:11 Loratadine 10 Mg Tablet PO 07/28/22 08:59 10 mg DAILY LAYA Administration Morphine Sulfate 2 mg 06/27/22 17:22 07/01/22 06:31 Morphine Sulfate (*Crx) 2 Mg/Ml Inj IV PUSH 2 mg Q2H PRN Administration Pain Rated 4-6 Morphine Sulfate 4 mg 06/27/22 17:22 06/30/22 11:28 Morphine Sulfate (*Crx) 4 Mg/Ml Inj IV PUSH 4 mg Q2H PRN Administration Pain Rated 7-10 Ondansetron HCl 4 mg 06/27/22 17:22 06/30/22 01:12 Ondansetron Inj 4 Mg/2 Ml Vial IV PUSH 4 mg Q4H PRN Administration Nausea And Vomiting Oxycodone HCl 5 mg 06/27/22 17:22 06/29/22 20:52 Oxycodone Hcl (*Crx) 5 Mg Tab Ir PO 5 mg Q4H PRN Administration Pain Rated 4-6 Oxycodone HCl 10 mg 06/27/22 17:22 06/29/22 00:52 Oxycodone Hcl (*Crx) 5 Mg Tab Ir PO 10 mg Q4H PRN Administration Pain R
--- NOTE | 2022-07-01 13:36 | PCNFU ---
Nutrition Follow-Up Complete: Inadequate oral intake related to altered GI function as evidenced by ileus, need for parenteral nutrition. Goal: Meet estimated nutrition needs Patient is progressing towards goal. We will continue current goal. Pt current nutrition is PPN and full liquids. Last recorded weight is 66.3 kg. Bowel Motility: +Bm reported 07/01 Labs Reviewed: Na 136 Meds Noted:Clinimix E 4.25/5 at 100 ml/hr with 250 ml of 20% Lipid Emulsion, Lovenox Skin: WNL Additional Notes: Diet order has been upgraded to full liquids. Plans for PPN for 1 more day. Current PPN providing 1316 kcals/102 gms protein, meeting 64% kcal needs and 100% protein needs. Monitoring diet advancement, feeding tolerance, labs, weights, plan of care Follow up every Monday and Monday.
[2022-07-01 15:07] VITALS: BP 136/87; PULSE 98; RESP 18; TEMP 36.7; O2SAT 97
[2022-07-01] MEDS: oxyCODONE HCL (*CRX) 5 MG TAB IR 10 MG PO (19:26)
[2022-07-01 19:31] LABS: Glucose Point of Care 136 mg/dl (65-105)
[2022-07-01 20:00] VITALS: PULSE 98; RESP 18; O2SAT 97
[2022-07-01 22:00] VITALS: BP 126/89; PULSE 93; RESP 16; TEMP 37.1; O2SAT 96
[2022-07-02 00:24] LABS: Glucose Point of Care 114 mg/dl (65-105)
[2022-07-02] MEDS: oxyCODONE HCL (*CRX) 5 MG TAB IR PO ×3 (02:26→20:49)
[2022-07-02] MEDS: AMINO ACIDS 4.25%/D5W/LYTES/CA 2,000 ML 100 ML IV CONT (02:26)
[2022-07-02 06:00] VITALS: BP 126/86; PULSE 75; RESP 14; TEMP 36.5; O2SAT 96
[2022-07-02 06:01] LABS: Hematocrit 36.8 % (42.0-52.0); Hemoglobin 11.8 g/dL (14.0-18.0); Mean Corpuscular HGB Conc 32.1 g/dl (32-36); Mean Corpuscular Hemoglobin 28.2 pg (26-34); Mean Platelet Volume 8.8 fl (7.4-10.4); Platelet Count Result 297 k/mm3 (150-375); Red Blood Count 4.18 M/mm3 (4.6-6.20); Red Cell Distribution Width 15.4 % (11.5-14.5); White Blood Count 6.4 K/mm3 (4.5-10.0)
[2022-07-02 06:10] LABS: Glucose Point of Care 94 mg/dl (65-105)
[2022-07-02 06:19] LABS: Anion Gap 3 mmol/L (8-16); Blood Urea Nitrogen 17 mg/dL (9-20); Calcium 8.3 mg/dL (8.4-10.2); Carbon Dioxide 28 mmol/L (22-30); Chloride 102 mmol/L (98-107); Estimated CRCL calculation 93 ml/min; Estimated Glomerular Filt Rate > 60; Glucose 96 mg/dL (65-110); Phosphorus 4.7 mg/dL (2.5-4.5); Potassium 4.2 mmol/L (3.4-5.0); Sodium 133 mmol/L (137-145)
[2022-07-02] MEDS: ENOXAPARIN 40 MG/0.4 ML SYRINGE SUB-Q (09:30)
[2022-07-02] MEDS: lisinopriL 10 MG TABLET PO (09:30)
[2022-07-02] MEDS: DICLOFENAC SODIUM 1% 100 GM GEL (*BKC) 1 APPLIC TOPICAL ×2 (09:30→20:51)
[2022-07-02] MEDS: FAMOTIDINE 20 MG TABLET PO (09:30)
[2022-07-02] MEDS: FAT EMULSIONS IV 20% 250 ML 20 ML IVPB (10:23)
[2022-07-02 12:09] LABS: Glucose Point of Care 116 mg/dl (65-105)
--- NOTE | 2022-07-02 12:24 | PM.PNGS ---
Progress Note: A&P Assessment and Plan (1) Diverticulitis of intestine with abscess: Qualifiers: Diverticulitis bleeding: with bleeding Diverticulitis site: large intestine Qualified Code(s): K57.21 - Diverticulitis of large intestine with perforation and abscess with bleeding Code(s): K57.80 - Diverticulitis of intestine, part unspecified, with perforation and abscess without bleeding Status: Acute Assessment and Plan: s/p sigmoid colectomy, doing well, cont postop care (2) Postoperative ileus: Code(s): K91.89 - Other postprocedural complications and disorders of digestive system; K56.7 - Ileus, unspecified Status: Acute Assessment and Plan: resolving, will ADAT, stop PPN, likely home tomorrow Subjective Subjective Date/Time Seen: 07/02/22 12:[address] this am, no pain, large BM this am, maddy FLD Review of Systems Review of Systems: All systems reviewed & are unremarkable except as noted in HPI and below Exam Const: General: cooperative, comfortable and no acute distress Resp: Auscultation: clear to auscultation bilaterally Cardio: Rate: regular rate Rhythm: regular rhythm GI: Inspection: normal to inspection, non-distended and incision GI Palp: No abdominal tenderness, Yes Soft to palpation, No Tenderness to palpation present (GI), No Guarding due to palpation present (GI) and No Rigid due to palpation Objective Data Vital Signs Vital Signs: Vital Signs - 24 hr 07/01/22 15:07 07/01/22 20:00 07/01/22 22:00 Temperature 36.7 C 37.1 C Pulse Rate 98 98 93 Respiratory Rate 18 18 16 Blood Pressure 136/87 126/89 Pulse Oximetry 97 97 96 Oxygen Delivery Room Air 07/02/22 06:00 Temperature 36.5 C Pulse Rate 75 Respiratory Rate 14 Blood Pressure 126/86 Pulse Oximetry 96 Oxygen Delivery Intake/Output Intake/Output: Intake & Output 06/29/22 06/30/22 07/01/22 07/02/22 23:59 23:59 23:59 23:59 Intake Total 8407 841 1399 2550 Output Total 1800 700 750 800 Balance 50 -40 2300 1750 Meds/Results Medications: Active Medications Generic Name Dose Route Start Last Admin Trade Name Freq PRN Reason Stop Dose Admin Acetaminophen 1,000 mg 06/29/22 17:00 06/30/22 05:15 Acetaminophen 500 Mg Tablet PO 1,000 mg Q6H LAYA Administration Al Hydrox/Mg Hydrox/Simethicone 30 ml 07/01/22 09:18 Mag Hydrox/Al Hydrox/Simeth 30 Ml Udc PO Q6H PRN Indigestion Diclofenac Sodium 1 applic 06/29/22 17:00 07/02/22 09:30 Diclofenac Sodium 1% 100 Gm Gel (*Bkc) TOPICAL 1 applic QID LAYA Administration Enoxaparin Sodium 40 mg 06/28/22 09:00 07/02/22 09:30 Enoxaparin 40 Mg/0.4 Ml Syringe SUB-Q 40 mg DAILY LAYA Administration Famotidine 20 mg 06/28/22 09:00 07/02/22 09:30 Famotidine 20 Mg Tablet PO 20 mg DAILY LAYA Administration Dextrose 1,000 mls @ 50 mls/hr 06/30/22 10:24 Dextrose 10% IV CONT .Q20H PRN if PN is interrupted Amino Acids/Electrolytes/Dextrose 2,000 mls @ 100 mls/hr 06/30/22 10:25 07/02/22 02:26 Clinimix E 4.25%/5% Solution IV CONT 100 mls/hr .Q20H LAYA Administration Protocol Fat Emulsion Intravenous 250 mls @ 20.833 mls/hr 06/30/22 10:25 07/02/22 10:23 Lipids 20% IVPB 20 mls/hr Q24H LAYA Administration Lisinopril 10 mg 06/28/22 09:00 07/02/22 09:30 Lisinopril 10 Mg Tablet PO 10 mg DAILY LAYA Administration Loratadine 10 mg 06/28/22 09:00 06/30/22 08:11 Loratadine 10 Mg Tablet PO 07/28/22 08:59 10 mg DAILY LAYA Administration Morphine Sulfate 2 mg 06/27/22 17:22 07/01/22 06:31 Morphine Sulfate (*Crx) 2 Mg/Ml Inj IV PUSH 2 mg Q2H PRN Administration Pain Rated 4-6 Morphine Sulfate 4 mg 06/27/22 17:22 06/30/22 11:28 Morphine Sulfate (*Crx) 4 Mg/Ml Inj IV PUSH 4 mg Q2H PRN Administration Pain Rated 7-10 Ondansetron HCl 4 mg 06/27/22 17:22 06/30/22 01:12 Ondansetron Inj 4 Mg/2 Ml Vial IV PU
[2022-07-02 14:00] VITALS: BP 128/89; PULSE 87; RESP 18; TEMP 37.1; O2SAT 96
[2022-07-02 17:22] LABS: Glucose Point of Care 92 mg/dl (65-105)
[2022-07-02 22:13] VITALS: BP 130/84; PULSE 87; RESP 18; TEMP 36.8; O2SAT 97
[2022-07-03] MEDS: oxyCODONE HCL (*CRX) 5 MG TAB IR PO (04:49)
[2022-07-03 05:03] LABS: Anion Gap 5 mmol/L (8-16); Blood Urea Nitrogen 12 mg/dL (9-20); Calcium 8.5 mg/dL (8.4-10.2); Carbon Dioxide 26 mmol/L (22-30); Chloride 99 mmol/L (98-107); Estimated CRCL calculation 93 ml/min; Estimated Glomerular Filt Rate > 60; Glucose 86 mg/dL (65-110); Phosphorus 4.3 mg/dL (2.5-4.5); Potassium 4.3 mmol/L (3.4-5.0); Sodium 130 mmol/L (137-145)
[2022-07-03 06:00] VITALS: BP 119/83; PULSE 84; RESP 18; TEMP 36.6; O2SAT 97
[2022-07-03] MEDS: lisinopriL 10 MG TABLET PO (08:08)
[2022-07-03] MEDS: ENOXAPARIN 40 MG/0.4 ML SYRINGE SUB-Q (08:08)
[2022-07-03] MEDS: FAMOTIDINE 20 MG TABLET PO (08:08)
[2022-07-03 09:03] LABS: Triglycerides 225 mg/dL (<150)
--- NOTE | 2022-07-03 11:57 | PM.DS ---
DS: Admitting Diagnosis Discharge Date 07/03/2022 Admitting Diagnosis Sigmoid diverticulitis with chronic retroperitoneal abscess DS: Discharge Diagnosis Discharge Diagnosis (1) Abscess of sigmoid colon due to diverticulitis: Code(s): K57.20 - Diverticulitis of large intestine with perforation and abscess without bleeding Status: Acute Assessment and Plan: status post sigmoid colectomy, doing well, continue postoperative care, home with p.o. analgesia and Colace, follow-up in 2 weeks (2) Postoperative ileus: Code(s): K91.89 - Other postprocedural complications and disorders of digestive system; K56.7 - Ileus, unspecified Status: Acute Assessment and Plan: resolved, continue heart healthy diet DS: Summary Hospital Course Reason for hospitalization: sigmoid diverticulitis with chronic retroperitoneal abscess Hospital Course: The patient is a 57-year-old male presenting to the hospital with sigmoid diverticulitis and chronic retroperitoneal abscess. The patient underwent hand assisted laparoscopic sigmoid colectomy on 06/27/22, full operative report for details of that procedure. Postoperatively the patient did well and was transferred to the surgical floor. The patient initially did very well and was up and ambulating without issue. He did develop a postoperative ileus requiring PPN for a few days postop. His ileus did slowly resolved and by the time of his discharge he was tolerating a heart healthy diet without issue and having normal bowel function. The patient will be discharged home at this time with p.o. analgesia and Colace. He will follow up in 2 weeks. Status at Discharge Functional status at discharge: independent ambulation Overall status at discharge: patient is progressing back to baseline Time Spent with Patient Time attestation: Total time spent providing and/or coordinating discharge services: Time spent: Less than 30 minutes Exam Const: General: cooperative, comfortable and no acute distress Resp: Auscultation: clear to auscultation bilaterally Cardio: Rate: regular rate Rhythm: regular rhythm GI: Inspection: normal to inspection, non-distended and incision GI Palp: No abdominal tenderness, Yes Soft to palpation and No Tenderness to palpation present (GI) DS: Data Data Completed and Pending Completed studies during hospitalization: Pending at discharge 06/27/22 12:13 Surgical [PTH] Routine Labs on day of discharge: Labs from last 24 hours 01/29/23 01/29/23 01/28/23 04:26 04:24 17:19 Sodium 130 L Potassium 4.3 Chloride 99 Carbon Dioxide 26 Anion Gap 5 L BUN 12 D Creatinine 0.70 Estim Creat Clear Calc 93 Estimated GFR > 60 Glucose 86 POC Capillary Glucose 92 Calcium 8.5 Phosphorus 4.3 Triglycerides 225 H 07/02/22 12:07 Sodium Potassium Chloride Carbon Dioxide Anion Gap BUN Creatinine Estim Creat Clear Calc Estimated GFR Glucose POC Capillary Glucose 116 H Calcium Phosphorus Triglycerides Discharge Plan Discharge Attending physician on discharge: Teddy Summers Discharging Clinician: Ximena Cortes Anticipated Discharge Date/Time: 07/03/22 11:51 Patient Disposition: Home, Self-Care Activity: no straining Diet: heart healthy Wound Care Instructions: incision open to air Patient Instructions: Antibiotic Form Stand Alone Forms: General Discharge Information Follow-up/Referrals: Teddy Summers DO [Physician] - 2 Weeks Discharge Medications: New hydrocodone-acetaminophen 5-325 mg tablet 1 tablet PO Q6H PRN (Reason: pain) Qty: 30 0RF docusate sodium [Colace] 100 mg capsule 100 mg PO BID Qty: 30 0RF Continued hydrocodone-acetaminophen 5-325 mg tablet 1 tablet PO Q8H PRN (Reason: pain) Qty: 14 0RF acetaminophen 500 mg Tablet 500 mg PO Q6H PRN (Reason: Headache) lisinopril 10 mg tablet 10 m
== END 2022-07-03 12:57 | disposition home or self-care (01) | DRG 330 ==
LOC: ANH2MED 17:24
PROVIDERS: Admitting Provider Surgery; PCP Internal Medicine; Visit Provider Surgery
PROC: 0D1E4Z4 Bypass Large Intestine to Cutaneous, Percutaneous Endoscopic Approach (ICD-10-PCS; principal; 2022-06-27 10:00)
DX: K57.20 Diverticulitis of large intestine with perforation and abscess without bleeding (principal); K91.89 Other postprocedural complications and disorders of digestive system; K56.7 Ileus, unspecified; I10 Essential (primary) hypertension; F41.9 Anxiety disorder, unspecified; Z79.899 Other long term (current) drug therapy; Z86.718 Personal history of other venous thrombosis and embolism; Z87.891 Personal history of nicotine dependence; Z88.2 Allergy status to sulfonamides; Z80.0 Family history of malignant neoplasm of digestive organs
CPT/HCPCS: 36415; 74018; 80048; 82948; 84100; 84478; 85025; 85027; 88307; A9270; C1729; C9290; J0690; J1100; J1170; J1650; J1885; J2250; J2270; J2370; J2405; J2704; J2710; J3010; J7030; J7120

== ENCOUNTER → 2023-06-21 09:49 | Outpatient (CLI) | payer BC, SELFPAY ==
--- NOTE | ~2023-06-21 | CT_ITS ---
CT of the Abdomen and Pelvis: Indication: Abdominal aortic aneurysm Technique: 2.5 mm axial scans were obtained through the abdomen and pelvis following intravenous adm inistration of 100 cc of Omnipaque 350. Dose reduction technique was used on this scan by utilizing a utomated exposure control and iterative reconstruction technique. The dose-length product (DLP) was 6 17.93 mGy-cm. COMPARISON: 06/14/2022 Findings: Scans through the lung bases are unremarkable. The liver, spleen, pancreas, gallbladder, adrenals and kidneys are within normal limits. There are at herosclerotic calcifications of the aorta. There is mild aneurysmal dilatation of the infrarenal abdo nikia aorta to 3.3 cm in maximum diameter. There is a 1 cm peripherally enhancing fluid collection ju st anterior to the abdominal aorta (axial image 54), likely representing residua of previous divertic ular abscess in this region. No lymphadenopathy. No bowel obstruction or bowel wall thickening. Rectosigmoid anastomosis noted. There is no evidence t o suggest acute appendicitis. Images through the pelvis were performed. Urinary bladder unremarkable. Prostate gland mildly enlarge d. No ascites. Impression: 1 cm probable residual abscess just anterior to the abdominal aorta, at the site of previously draine d diverticular abscess. 3.3 cm infrarenal abdominal aortic aneurysm. Reviewed, dictated and finalized at location [facility]. 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 3.3 cm infrarenal abdominal aortic aneurysm.
--- NOTE | ~2023-06-21 | CT_ITS ---
CT Scan of the Chest without Contrast: Clinical Indication: Lung cancer screening, personal history of nicotine dependence Technique: Contiguous sections were acquired throughout the chest without intravenous contrast. Dose reduction technique was used on this scan by utilizing automated exposure control and iterative recon struction technique. The dose-length product (DLP) was 74.95 mGy-cm. Findings: There is no evidence of any significant mediastinal, hilar or axillary lymphadenopathy. The mediastin al soft tissues appear normal. There is no evidence of pleural or pericardial effusion. 4 mm nodule noted at the left upper lobe/lingula. Images through the upper abdomen reveal no abnormalities. Impression: Lung RADS 2: Benign appearance. 12 month follow-up screening CT advised. Reviewed, dictated and finalized at location . 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 12 month follow-up screening CT advised.
== END ==
PROVIDERS: PCP Internal Medicine; Visit Provider Internal Medicine
DX: Z12.2 Encounter for screening for malignant neoplasm of respiratory organs (principal); I71.43 Infrarenal abdominal aortic aneurysm, without rupture; Z87.891 Personal history of nicotine dependence
CPT/HCPCS: 71271; 74177; Q9967

== ENCOUNTER 2024-06-07 14:19 | Outpatient (CLI) | payer BC, SELFPAY ==
--- NOTE | ~2024-06-07 | CT_ITS ---
EXAMINATION: CT abdomen pelvis wo con DATE: 06/07/2024 14:40 INDICATION: Diverticulitis. History of diverticular abscess TECHNIQUE: Computed tomography (CT) of the abdomen and pelvis was performed without intravenous contr ast. Automated exposure control and iterative reconstruction technique were employed. Exam dose: 667 .66 mGy-cm total exam DLP. COMPARISON: 06/21/2023 CT abdomen pelvis FINDINGS: Lung bases are clear. Normal heart size. No pericardial or pleural effusion. The liver, gallbladder, bile ducts, pancreas, pancreatic duct are unremarkable. Normal splenic size. Normal morphology of the adrenal glands. No apparent renal mass lesion on this limited noncontrast examination. No urinary tract calculus or hydroureteronephrosis. Prostate enlargement. Suture line at distal sigmoid colon. No bowel obstruction. Diverticulosis of the colon. Large irregular poorly circumscribed abnormal soft tissue density in th e left periaortic area measuring up to 4.2 cm transverse, 8.6 cm sagittal and 3.3 cm AP dimension, helene rdering the aorta and sigmoid colon . The differential diagnosis includes diverticular abscess, whic h was present at this location and drained by percutaneous cathter previously. This is likely recurr ent larger diverticular abscess since 06/14/2022. Less likely consideration would be aortic aneurysm rupture; repeat examination with IV contrast material is recommended. Stable 3.3 cm abdominal aortic aneurysm. No intraperitoneal or retroperitoneal or pelvic mass lesion or adenopathy or ascites. No bowel obstruction or intraperitoneal free air. No suspicious osteolytic or osteoblastic lesions. IMPRESSION: Large irregular soft tissue mass at the exact site or prior diverticular abscess, likely recurrent abscess; differential diagnosis includes less likely aortic aneurysm rupture. Repeat CT a bdomen with IV contrast should be considered. I attempted to contact Dr. Quinteros by telephone but there was no answer at the [phone] phone numb er provided. I gave the report information to supervisor reclamation Elysia Pina on 06/09/2024 at 1423 hours; she indicat ed she would contact the referring or covering physician as soon as possible with the report and marquis mmendation for repeat CT abdomen and pelvis with IV contrast material. Reviewed, dictated and finalized at [facility]. Reviewed, dictated and finalized at location [facility]. 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 Repeat CT abdomen with IV contrast should be c onsidered. I attempted to contact Dr. Quinteros by telephone but there was no answer at the phone number provided. I gave the report information to supervisor reclamation Elysia Pina on 06/09/2024 at 1 423 hours; she indicated she would contact the referring or covering physician as soon as possible with the report and recommendation for repeat CT abdomen an d pelvis with IV contrast material.
== END 2024-06-07 14:20 | disposition home or self-care (01) ==
PROVIDERS: PCP Internal Medicine; Visit Provider Internal Medicine
DX: K57.92 Diverticulitis of intestine, part unspecified, without perforation or abscess without bleeding (principal); R93.5 Abnormal findings on diagnostic imaging of other abdominal regions, including retroperitoneum
CPT/HCPCS: 74176

== ENCOUNTER 2024-07-03 12:41 | Outpatient (CLI) | payer BC, SELFPAY ==
--- NOTE | ~2024-07-03 | CT_ITS ---
EXAMINATION: CT abdomen pelvis w con DATE: 07/03/2024 13:14 INDICATION: Diverticulitis of intestine, part unspecified, without perfo TECHNIQUE: Computed tomography (CT) of the abdomen and pelvis was performed with 100 mL Omnipaque-350 intravenous contrast. Automated exposure control and iterative reconstruction technique were employe d. The dose-length product was 535.42 mGy-cm. COMPARISON: 06/07/2024, 06/21/2023, 06/14/2022. FINDINGS: Lower thorax: Unremarkable Liver: Normal. Biliary/Gallbladder: Gallbladder is normal. No bile duct dilation. Pancreas: No mass or duct dilation. Spleen: Normal. Adrenals:No mass. Kidneys: No suspicious mass, obstructing stone, or hydronephrosis. Subcentimeter right upper pole hyp odensity, too small to characterize but likely represents a cyst. GI tract: Mild distal esophageal and antral wall edema. Uncomplicated rectosigmoid anastomosis. No sm all or large bowel dilation. Normal appendix. Diverticulosis. Mesentery/Peritoneum: No ascites, mass, or free air. Retroperitoneum: 3.6 cm infrarenal abdominal aortic aneurysm. 3.1 x 2.2 x 9.8 cm irregular, multilobu lated rim-enhancing fluid and gas collection along the anterior surface of the infrarenal abdominal a wilma, extending from the level of L3-L5-S1, with persistent strand-like connections to the adjacent s igmoid colon. Atherosclerotic calcifications of intra-abdominal arterial vessels. Pelvis: Normal urinary bladder. Prostatomegaly. Soft Tissues: Soft tissues and body wall unremarkable. Bones: No acute osseous finding. IMPRESSION: Mild esophagitis and antral gastritis. Retroperitoneal abscess along the anterior surface of the infrarenal abdominal aorta with possible fi stulous connection to the sigmoid, grossly unchanged since the 06/07/2024 examination given interval di fferences in technique. This collection is larger compared to the 06/21/2023 examination. 3.6 cm infrarenal abdominal aortic aneurysm without evidence of extravasation. Aneurysm has increased in size since the examination of 06/21/2023 (previously measuring 3.4 cm). Reviewed, dictated and finalized at location [facility]. 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 Retroperitoneal abscess along the anterior surface of the infrarenal abdominal aorta with possible fistulous connection to the sigmoid, grossly unchanged sinc e the 06/07/2024 examination given interval differences in technique. This collec tion is larger compared to the 06/21/2023 examination. 3.6 cm infrarenal abdominal aortic aneurysm without evidence of extravasation. Aneurysm has increased in size since the examination of 06/21/2023 (previously m easuring 3.4 cm).
--- NOTE | ~2024-07-03 | CT_ITS ---
EXAMINATION:CT lung screening DATE: 07/03/2024 13:15 INDICATION: Personal history of nicotine dependence. Current smoker with 20 pack year history. TECHNIQUE: Computed tomography (CT) of the chest was performed without intravenous contrast. Automate d exposure control and iterative reconstruction technique were employed. The dose-length product (DLP ) was 68.46 mGy-cm. COMPARISON: Chest CT 06/21/2023 FINDINGS: There is mild emphysema. There is mild atelectasis bilaterally. There is a 5 mm pleural-bas ed nodule in left lower lobe without change. Again seen is a 4 mm nodule in lingula. Again seen is a 4 mm nodule in right middle lobe. There are stable small nodules at left major fissure. No pleural ef fusion. The heart size is normal. No pericardial effusion. There are old healed left rib fractures. T here is mild thoracic spondylosis. IMPRESSION: 1. Lung-RADS category 2: Benign appearance or behavior. Continue annual screening with noncontrast lo w-dose chest CT in 12 months. Reviewed, dictated and finalized at location A. 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 Lung-RADS category 2: Benign appearance or behavior. Continue annual screeni ng with noncontrast low-dose chest CT in 12 months.
[2024-07-03 13:04] LABS: Estimated Glomerular Filt Rate > 60
== END 2024-07-03 12:42 | disposition home or self-care (01) ==
PROVIDERS: PCP Internal Medicine; Visit Provider Internal Medicine
DX: K57.92 Diverticulitis of intestine, part unspecified, without perforation or abscess without bleeding (principal); Z12.2 Encounter for screening for malignant neoplasm of respiratory organs; Z87.891 Personal history of nicotine dependence; K20.90 Esophagitis, unspecified without bleeding; K29.60 Other gastritis without bleeding
CPT/HCPCS: 71271; 74177; Q9967

== ENCOUNTER 2024-08-14 09:13 | Outpatient (CLI) | payer BC, SELFPAY ==
--- NOTE | ~2024-08-14 | CT_ITS ---
CT of the Abdomen and Pelvis: Indication: Peritoneal abscess Technique: 2.5 mm axial scans were obtained through the abdomen and pelvis following intravenous adm inistration of 100 cc of Omnipaque 350. Dose reduction technique was used on this scan by utilizing a utomated exposure control and iterative reconstruction technique. The dose-length product (DLP) was 4 97.33 mGy-cm. COMPARISON: 07/03/2024 Findings: Scans through the lung bases are unremarkable. The liver, spleen, pancreas, gallbladder, adrenals and kidneys are within normal limits. Infrarenal a bdominal aortic aneurysm measures 3.7 cm in diameter. Suggestion of mild periaortic inflammatory fuller ge. Previous noted abscess is nearly completely resolved.. No lymphadenopathy. No bowel obstruction or bowel wall thickening. There rectosigmoid anastomosis is noted. Images through the pelvis were performed. Urinary bladder unremarkable. Prostate gland enlarged. No a scites. Impression: Mild periaortic inflammatory change with near complete resolution of previously noted abscess. Underlying 3.7 cm abdominal aortic aneurysm with extensive atherosclerotic calcification. Reviewed, dictated and finalized at [facility]. Impression: Mild periaortic inflammatory change with near complete resolution of previously noted abscess. Underlying 3.7 cm abdominal aortic aneurysm with extensive atherosclerotic calc ification.
[2024-08-14 09:27] LABS: Estimated Glomerular Filt Rate > 60
== END 2024-08-14 09:14 | disposition home or self-care (01) ==
LOC: MICIMG 09:15
PROVIDERS: PCP Internal Medicine; Visit Provider Surgery
DX: K65.1 Peritoneal abscess (principal); I71.40 Abdominal aortic aneurysm, without rupture, unspecified; I70.0 Atherosclerosis of aorta
CPT/HCPCS: 74177; Q9967